=== PATIENT | male | born 1955 | race Caucasian/White ===

== ENCOUNTER 2022-06-04 15:26 | Outpatient (CLI) | payer MEDICARE, BC, SELFPAY ==
[2022-06-04 17:13] LABS: Chloride* 98 mmol/L (96-114)
[2022-06-04 17:14] LABS: Potassium* 4.1 mmol/L (3.6-5.1); Sodium* 136 mmol/L (135-149)
[2022-06-04 17:16] LABS: Aspartate Amino Transferase* 32 U/L (12-35); Bilirubin Total* 0.7 mg/dL (0.1-1.5); Blood Urea Nitrogen* 15 mg/dL (7-30); Carbon Dioxide* 28 mmol/L (20-32); Cholesterol* 227 mg/dL (90-199); Creatinine* 0.7 mg/dL (0.5-1.5); Estimated Glomerular Filt Rate 102 ml/min; Total Protein* 7.2 g/dL (6.0-8.3)
[2022-06-04 17:17] LABS: Alanine Aminotransferase* 37 U/L (4-50); Alkaline Phosphatase* 75 U/L (40-150); Calcium* 10.6 mg/dL (8.4-10.6); Glucose* 89 mg/dL (60-115); HDL Cholesterol* 38 mg/dL (>=40)
[2022-06-04 17:36] LABS: LDL Cholesterol Calculated 68 mg/dL (<100); Triglycerides* 604 mg/dL (40-149)
[2022-06-04 17:39] LABS: Creatinine Urine 99.1 mg/dL
[2022-06-04 17:45] LABS: Microalbumin Creatinine Ratio 10 mg/g (0-30); Microalbumin Urine 1 mg/dL
== END 2022-06-04 15:27 | disposition home or self-care (01) ==
PROVIDERS: PCP Family Medicine; Visit Provider Family Medicine
DX: Z00.00 Encounter for general adult medical examination without abnormal findings (principal); E78.5 Hyperlipidemia, unspecified; E11.9 Type 2 diabetes mellitus without complications; I10 Essential (primary) hypertension; R53.83 Other fatigue
CPT/HCPCS: 80053; 80061; 82043; 82570

== ENCOUNTER 2022-08-06 08:48 | Outpatient (CLI) | payer MEDICARE, BC, SELFPAY ==
--- OUTSIDE RECORDS SUMMARY | 2022-08-06 08:52 | XMS_ITS ---
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 067836753 nephropathy Problem Tinnitus H93.19 Active 91619595 Problem Lumbar foraminal M99.83 Active 183 14515 stenosis Problem Mixed dyslipidemia E78.2 Active 2 08659123 Problem Venous stasis I87.2 Active 032441 09 dermatitis of left lower extremity Problem Bilateral H90.3 Active 244460738 sensorineural hearing loss Problem Hypertension I10 Active 8877094 3 Problem Degenerative joint M19.90 Active 3 36676959 disease Problem DJD (degenerative M47.816 Active 48 287536 joint disease), lumbar Problem Family history of Z80.0 Active 31 4306569 colon cancer ALLERGIES Substance Reaction Event Type Date Status Metformin HCl diarrhea Drug Allergy December, Active Lipitor myalgias Drug Allergy December, Active Cortisone hives Drug Allergy December, Active Clindamycin HCl pruritus Drug Allergy December, Active ENCOUNTERS Encounter Location Date Diagnosis [address] Jul, [place] [address] [place] [address] Apr, [address] [place] [address] [place] [address] Mar, [address] [place] [address] [place] [address] Mar, Type 2 diabetes mellitus [address] [place], [place] [address] neurological com plication E11.49 [facility] [address] Feb, Type 2 diabetes mellitus [place] with other diabe tic [address] neurological com plication E11.49 [facility] [address] December, Callus of to e L84 and Type [facility] 100 2 diabetes melli tus with [place], [place] other diabetic [address] neurological com plication E11.[address] December, [place] [address] [place] [address] [facility] [place] Oct, [place] [address] [facility] [address] Aug, Physical exa m, annual [facility] [address] Z00.00 ; Hyperte nsion I10 [place], [place] ; Type 2 diabete s mellitus [address] with other diabe tic neurological com plication E11.49 ; Mixed dyslipidemia E78 .2 ; Family history o f colon cancer Z80.0 and Prostate cancer screening Z12.5 [facility] [address] Aug, Hypert ension I10 and Type [place], [place] 2 diabetes melli tus with [address] other diabetic neurological com plication E11.49 [facility] [address] Jul, Hypert ension I10 and Type [place], [place] 2 diabetes [place]us [place] [address] other diabetic neurological com plication E11.[address] [place] [address] May, [address] [place] [address] [place] [address] Mar, Hypertension I1 0 [address] [place] [address] [facility] [address] Feb, Type 2 diabetes mellitus [place] with other diabe tic [address] neurological com plication E11.49 ; Impacte d cerumen of left ear H61. 22 and Failed hearing s creening R94.120 [place] [address] December, Hypertension I1 0 [address] [place] [address] [place] [address] December, [address] [place] [address], [place] [address] [place] [address] December, [address] [place] [address], [place] [address] [facility] [address] Nov, [place] [address] [facility] [address] Nov, [place] [address] [facility] [address] Nov, [place] [address] Nov, Type 2 diabetes mellitus [address] [place] [address] neurologica l complication E11.[address] [place] [address] Oct, [address] [place] [address], [place] [address] [place] [address] Oct, [address] [place] [address] [facility] [address] Oct, Type 2 diabe mati mellitus [place] [address] with other diabe tic [place], [place] neurological com plication [address] E11.49 [facility] [place] [address] Oct, Mixed dyslipidemia E78.2 [place] Reyn[place] and Type 2 diabe mati [address] mellitus with ot her diabetic neurolo gical complication E11 .[address] [place] [address] Oct, [address] [place] [address], [place] [address] [place] [address] Sep, Type 2 diabetes mellitus [address], [place] [address] neurological com plication E11.49 ; Hyperte nsion I10 and Mixed dyslip idemia E78.[address] [place] [address] Sep, [address], [place] [address] [place] [address] Sep, [place] [address] [place], [place] [address] [place] [address] Sep, Type 2 diabetes mellitus [address], [place] [address] neurological com plication E11.[address] [place] [address] Aug, Type 2 diabetes mellitus [address], [place] [address] neurological com plication E11.[address] [place] [address] Jul, [place] [address] [place], [place] [address] [facility] [address] Jul, Hypertension I10 ; Type 2 [place] [address] diabetes mellitu s with [place] other diabetic [address] neurological com plication E11.49 ; Diabeti c nephropathy E11. 21 ; Mixed dyslipidemia E78 .2 and Lip lesion K13.0 [facility] [address] Jul, Hypert ension I10 and Type [place] 2 diabetes melli unm [facility] with [address] other diabetic neurological com plication E11.[address] Feb, Hyperte nsion I10 ; Type [address] diabetes mellitu s with [place] [address] other diabe tic neurological com plication E11.49 ; Diabeti c nephropathy E11. 21 ; Mixed dyslipidemia E78 .2 and Skin lesion L98. 9 [facility] [address] Jan, Type 2 diabetes mellitus [place] with other diabe tic [address] neurological com plication E11.49 and Hyper tension I10 [place] [address] December, [place] [address] [place], [place] [address] [facility] [address] December, Type 2 diabetes mellitus [place] with other diabe tic [address] neurological com plication E11.49 and Hyper tension I10 [facility] [address] Nov, [place] [address] [facility] [address] Nov, [place] [address] [facility] [place] [address] Aug, Hypert ension I10 and Mixed [place] Reyn[place] dyslipidemia E78 .2 [address] [facility] [place] [address] Aug, Prosta te cancer screening [place] Reynoso Z12.5 ; Type 2 d iabetes [address] mellitus with ot her diabetic neurolo gical complication E11 .49 and Mixed dyslipidem ia E78.2 [facility] [address] [facility] [address] Aug, Physical exa m, annual [facility] [address] Z00.00 ; Hyperte nsion I10 [place] ; Type 2 diabete s mellitus [address] with other diabe tic neurological com plication E11.49 ; Mixed dyslipidemia E78 .2 and Prostate cancer screening Z12.5 [facility] [address] [place] [address] Avenue Jun, Hypertension I10 ; Type 2 [facility] 100 diabetes mellitu s with [place] other diabetic [address] neurological com plication E11.49 ; Mixed dyslipidemia E78 .2 and Acute URI J06.[address] Jun, Type 2 diabetes mellitus [place] [address] with other diabetic neurological com plication E11.49 [facility] [address] [place] [address] Avenue May, Hypertension I10 ; Type 2 [facility] 100 diabetes mellitu s [place] other diabetic [address] neurological com plication E11.49 ; Mixed dyslipidemia E78 .2 and Plantar fasciiti s of right foot M72.2 [facility] [address] [facility] [address], [address] [place] [address] [facility] [address] [place] [address] Avenue Mar, Hypertension I10 ; Type 2 [facility] 100 diabetes mellitu s [place] other diabetic [address] neurological com plication E11.49 ; Diabeti c nephropathy E11. 21 and Mixed dyslipidem ia E78.[address] Mar, Type 2 diabetes mellitus [place] with other diabe tic [address] neurological com plication E11.[address] Aug, [place] [address] [facility] [address] Jul, [facility] 100 [place] [address] [facility] [address] Jul, Hypertension I10 ; Type 2 [place] [address] diabetes mellitu s with [place] other diabetic [address] neurological com plication E11.49 ; Mixed dyslipidemia E78 .2 and Back pain M54.9 [facility] [address] Jun, Type 2 diabetes mellitus [place] with other diabe tic [address] neurological com plication E11.49 [place] [address] Jun, Type 2 diabetes mellitus [place] with other diabe tic [address] neurological com plication E11.49 [facility] [address] [facility] [address] Mar, Type 2 diabe mati mellitus [place] [address] with other diabe tic [place] neurological com plication [address] E11.[address] [place] [address] Mar, Type 2 diabetes mellitus [place] with other diabe tic [address] neurological com plication E11.49 and Mixed dyslipidemia E78 .2 [facility] [address] Mar, Type 2 diabetes mellitus [place] with other diabe tic [address] neurological com plication E11.49 [facility] [address] 30 Feb, 2018 Hypertension I10 ; Type 2 [place] [address] diabetes mellitu s with [place] other diabetic [address] neurological com plication E11.49 and Mixed dyslipidemia E78 .2 [place] [address] Feb, Hype rtension I10 [place] [address] Nov, [facility] 300 [place] [address] Nov, Venous stasis dermatitis [place] [address] [place] of left lower ex tremity [place] [address] I87.2 and T ype 2 diabetes mellitus with ot her diabetic neurolo gical complication E11 .[address] Oct, Body ma ss index (BMI) [facility] [address] [place] 33.0-33.9, adult Z68.33 ; [place] [address] Obese E66.9 ; Type 2 diabetes mellitu s with other diabetic neurological com plication E11.49 ; Diabeti c nephropathy E11. 21 ; Mixed dyslipidemia E78 .2 and Hypertension I10 [address] Jun, [facility] 300 [place] [address] Jun, [facility] 300 [place] [address] May, Type 2 diabetes mellitus [facility] 300 [place] with other diabe tic [place] [address] neurologica l complication E11.[address] May, [facility] 300 [place] [address] May, [facility] 300 [place] [address] May, [facility] 300 [place] [address] May, Hyperte nsion I10 ; Type 2 [facility] [address] diabetes mellitu s with [place] [address] other diabe tic neurological com plication E11.49 ; Diabeti c nephropathy E11. 21 and Mixed dyslipidem ia E78.2 [facility] [address] May, [place] [address] [facility] [address] Apr, Type 2 diabetes mellitus [place] with other diabe tic [address] neurological com plication E11.49 ; Encount er for aspirin therapy Z79.82 and Mixed dyslipidem ia E78.[address] December, Venous stasis dermatitis [place] [address] [place] of left lower ex tremity [place] [address] I87.2 ; Typ e 2 diabetes mellitus with ot her diabetic neurolo gical complication E11 .49 ; Diabetic nephrop athy E11.21 ; Mixed dyslipidemia E78 .2 and Hypertension I10 [facility] [address] December, Hype rtension I10 and Mixed [place] dyslipidemia E78 .2 [address] December, Hyperte nsion I10 and Mixed [facility] 300 [place] dyslipidemia E78 .2 [place] [address] Oct, Type 2 diabetes mellitus [facility] [address] [place] with other diabe tic [place] [address] neurologica l complication E11.49 ; Diabeti c nephropathy E11. 21 ; Mixed dyslipidemia E78 .2 ; Degenerative greg nt disease M19.90 ; Hyperte nsion I10 ; Bilateral sens orineural hearing loss H90 .3 ; Preoperative exa mination Z01.818 and Bact eria in urine N39.[address] Oct, [place] [address] Sep, [facility] 300 [place] [address] Sep, Right h ip pain M25.551 ; [facility] [address] [place] Type 2 diabetes mellitus [place] [address] with other diabetic neurological com plication E11.49 ; Diabeti c nephropathy E11. 21 ; Mixed dyslipidemia E78 .2 ; Hypertension I10 ; Hearing loss H91.90 and Family history of colon cancer Z80.[address] Jun, [place] [address] Mar, Pre-op evaluation Z01.818 [facility] [address] ; Type 2 diabete s mellitus [place] [address] with other diabetic neurological com plication E11.49 ; Hyperte nsion I10 and Lumbar disc disease with radiculopat hy M51.[address] Mar, Family history of [address] [place] malignant neopla sm of [place] [address] digestive o rgan Z80.0 [place] [address] Jan, [place] [address] [address] Jan, Lumb ar foraminal stenosis [place] M99.83 and Right hip pain [address] [address] December, BMI 32. 0-32.9,adult Z68.32 [facility] [address] [place] ; Hypertension I 10 ; Obese [place] [address] E66.9 ; Sac roiliac inflammation M46 .1 ; Right hip pain M25.551 ; Trochanteric bur sitis, right hip M70.61 ; Right lumbar radiculop athy M54.16 and Famil y history of colon cancer Z80.[address] Sep, [place] [address] [place] [address] Sep, Physical exa m, annual [facility] [address] Z00.00 ; Body ma ss index [place], [place] (BMI) 33.0-33.9, adult [address] Z68.33 ; Type 2 diabetes mellitus with ot her diabetic neurolo gical complication E11 .49 ; Obese E66.9 ; Di abetic nephropathy E11. 21 ; Mixed dyslipidemia E78 .2 ; Degenerative greg nt disease M19.90 ; History of wound infection Z98.89 ; Hypertension I10 ; DJD (degenerative nic int disease), lumbar M47.816 ; Hearing loss H91 .90 and Tinnitus H93.[address] Aug, [place] [address] May, Esse ntial (primary) [place] hypertension I10 [address] Nov, [place] [address] [place] [address] Nov, Dysl ipidemia 272.4 and [place] Diabetes mellitu s type 2, [address] diet-controlled 250.00 [place] [address] Nov, Dysl ipidemia 272.4 ; Type [place] 2 diabetes [place]elli [place]us [place] [address] neurological manifestations, controlled 250.60 and HTN (hypertension) 4 01.9 [facility] [address] Oct, Dysl ipidemia 272.4 [place] [address] [place] [address] Apr, [place] [address] [place] [address] Apr, [facility] health [place] maintenance V70. 0 ; Type 2 [address] diabetes mellitu s with neurological manifestations, controlled 250.60 ; HTN (hypertension) 4 01.9 ; Dyslipidemia 272 .4 ; Trochanteric bur sitis of right hip 726.5 and Hip flexor tendoniti s 727.09 [facility] [address] Oct, Toe infection 686.9 and [place] Diabetes mellitu s type 2, [address] diet-controlled 250.00 [place] [address] Nov, Pain in foot 729.5 ; [place] Hallux limitus 7 35.8 and [address] Tendonitis of fo ot 727.06 [facility] [address] Nov, Pain in both feet 729.5 [place] [address] [place] [address] Nov, [facility] health maintenance [place] Jo[place] V70.0 ; HTN (hyp ertension) [address] 401.9 ; Type 2 d iabetes mellitus with ne urological manifestations, controlled 250.60 ; Dyslipi demia 272.4 and Diabet ic nephropathy 250. 40 [facility] [address] Nov, HTN (hypertension) 401.9 ; [place] Jo[place] Dyslipidemia 272 .4 and [address] Type 2 diabetes mellitus with neurologica l manifestations, controlled 250.60 [facility] [address] Oct, Dysl ipidemia 272.4 ; HTN [place] Jo[place] (hypertension) 4 01.9 and [address] Type 2 diabetes mellitus with neurologica l manifestations, controlled 250.60 [place] [address] Sep, Cell ulitis 682.9 [place] [address] [facility] [address] Sep, Cell ulitis 682.9 [place] [address] Apr, [place] [address] [place] [address] Mar, [place] [address] [place] [address] Mar, Woun d infection 958.3 ; [place] Dyslipidemia 272 .4 ; HTN [address] (hypertension) 4 01.9 ; Type 2 diabetes mellitus with neurologica l manifestations, controlled 250.60 and Diabe tic nephropathy 250. [address] Mar, [place] [address] [facility] [address] Mar, [place] [address] [place] [address] Mar, [place] [address] [place] [address] Mar, HTN (hypertension) 401.9 ; [place] Dyslipidemia 272 .4 and [address] Type 2 diabetes mellitus with neurologica l manifestations, controlled 250.60 [place] [address] Mar, Hype rtension 401.9 ; DM [place] Jo[place] type 2 (diabetes mellitus, [address] type 2) 250.00 ; Dyslipidemia 272 .4 and DJD (degenerative nic int disease) 715.90 [facility] [address] Feb, HTN (hypertension) 401.9 ; [place] Dyslipidemia 272 .4 and [address] Type 2 diabetes mellitus with neurologica l manifestations, controlled 250.60 [facility] [address] Nov, [place] [address] [facility] [address] Sep, Type 2 diabetes mellitus [place] with neurologica l [address] manifestations, controlled 250.60 ; Actinic keratosis 702.0 ; HTN (hyp ertension) 401.9 and Dyslip idemia 272.4 IMMUNIZATIONS Vaccine Route Administration Date Status COVID, (Pfizer Booster Smith, 12+) IM Intramuscular Sep 02, 2021 Administered mRNA, LNP-S, PF t-s 30mcg/0.3ml Historic - COVID, (Pfizer Purple, Unknown Sep 17, 2020 Administered 12+) mRNA, LNP-S, PF, 30 mcg/0.3 ml Historic - COVID, (Pfizer Purple, Unknown Aug 27, 2020 Administered 12+) mRNA, LNP-S, PF, 30 mcg/0.3 ml Tdap (Boostrix), 10+yrs IM Intramuscular Sep 02, 2021 Adminis tered Tdap (Boostrix), 10+yrs Unknown Aug 18, 2010 Administ ered Pneumo-PPV23 ([id number]) 0 Sep 18, 2010 Admin istered SOCIAL HISTORY Never Assessed REASON FOR REFERRAL FUNCTIONAL STATUS PLAN OF CARE Activity Details Follow Up prn Reason: Future Test HbA1c/eAG-Glycosylated Hgb 2 2200302 Future Test Lipid Panel 20220302 Future Test Microalbumin/Creatinine Rati o 20220302 Future Test Colonoscopy 20210902 Future Test Colonoscopy 20160114 Future Test MRI : Lumbar Spine 20160114 Future Test Basic Metabolic Panel 419380 12 Future Test Lipid Panel 36184998 Future Test HbA1c/eAG-Glycosylated Hgb 2 4702327 Future Test Lipid Panel 64916229 Future Test ALT 20121122 Future Test HbA1c/eAG-Glycosylated Hgb 2 8915081 VITAL SIGNS Weight 231. lbs 2021-12-22 Weight 229. lbs 2021-09-02 Weight 232 lbs 2021-03-10 Weight 236 lbs 2020-07-30 Weight 234.2 lbs 2020-02-19 Weight 229 lbs 2019-08-21 Weight 229. lbs 2019-06-21 Weight 235. lbs 2019-05-16 Weight 241 lbs 2019-04-10 Weight 242 lbs 2018-07-25 Weight 244.4 lbs 2018-03-14 Weight 242 lbs 2017-11-29 Weight 240 lbs 2017-11-04 Weight 239 lbs 2017-05-24 Weight 235 lbs 2016-10-26 Weight 233.4 lbs 2016-10-06 Weight 235 lbs 2016-04-02 Weight 235 lb 4 oz lbs 2016-01-14 Weight 241.8 lbs 2015-09-17 Weight 234 lb 8 oz lbs 2014-04-17 Weight 231 lbs 2013-11-07 Weight 225 lbs 2012-12-08 Weight 225 lbs 2012-11-22 Weight 226 lbs 2012-10-11 Weight 224.4 lbs 2012-04-11 Height 69.25 in 2021-12-22 Height 69.25 in 2021-09-02 Height 71 in 2021-03-10 Height 71 in 2020-07-30 Height 71 in 2020-02-19 Height 71 in 2019-08-21 Height 71 in 2019-06-21 Height 71 in 2019-05-16 Height 71 in 2019-04-10 Height 71 in 2018-07-25 Height 71 in 2018-03-14 Height 71 in 2017-11-29 Height 71 in 2017-11-04 Height 71 in 2017-05-24 Height 71 in 2017-01-13 Height 71 in 2016-10-26 Height 71 in 2016-10-06 Height 71 in 2016-04-02 Height 5 ft 11 in in 2016-01-14 Height 5 ft 11 in in 2015-09-17 Height 5 ft 11 in in 2014-04-17 Height 5 ft 11 in in 2013-11-07 Height 5 ft 11 in in 2012-12-08 Height 5 ft 11 in in 2012-11-22 Height 5 ft 11 in in 2012-10-11 Height 5 ft 11 in in 2012-04-11 Temperature oral:98.2 degrees Fahrenheit 2021-12-22 Temperature oral:98.1 degrees Fahrenheit 2021-09-02 Temperature oral:98.2 degrees Fahrenheit 2021-03-10 Temperature oral:97.8 degrees Fahrenheit 2020-07-30 Temperature oral:97.0 degrees Fahrenheit 2020-02-19 Temperature oral:98.3 degrees Fahrenheit 2019-06-21 Temperature oral:97.9 degrees Fahrenheit 2019-05-16 Temperature oral:98 degrees Fahrenheit 2019-04-10 Temperature oral:97.8 degrees Fahrenheit 2018-07-25 Temperature oral:98.0 degrees Fahrenheit 2018-03-14 Temperature oral:97.6 degrees Fahrenheit 2017-11-04 Temperature oral:98.2 degrees Fahrenheit 2017-05-24 Temperature 98.0 degrees Fahrenheit 2017-01-13 Temperature 97.7 degrees Fahrenheit 2016-10-26 Temperature oral:98.2 degrees Fahrenheit 2016-04-02 Temperature 98.4 degrees Fahrenheit 2016-01-14 Temperature oral:98.1 degrees Fahrenheit 2015-09-17 Temperature oral:98.1 degrees Fahrenheit 2013-11-07 Temperature oral:98.8 degrees Fahrenheit 2012-10-11 Temperature oral:98.3 degrees Fahrenheit 2012-04-11 Heart Rate 96 /min 2021-12-22 Heart Rate 92 /min 2021-09-02 Heart Rate 76 /min 2021-03-10 Heart Rate 72 /min 2020-07-30 Heart Rate 64 /min 2020-02-19 Heart Rate 82 /min 2019-08-21 Heart Rate 68 /min 2019-06-21 Heart Rate 64 /min 2019-05-16 Heart Rate 86 /min 2019-04-10 Heart Rate 84 /min 2018-07-25 Heart Rate 72 /min 2018-03-14 Heart Rate 76 /min 2017-11-29 Heart Rate 74 /min 2017-11-04 Heart Rate 68 /min 2017-05-24 Heart Rate 70 /min 2017-01-13 Heart Rate 78 /min 2016-10-26 Heart Rate 72 /min 2016-10-06 Heart Rate 84 /min 2016-04-02 Heart Rate 70 /min 2016-01-14 Heart Rate 66 /min 2015-09-17 Heart Rate 68 /min 2014-04-17 Heart Rate 78 /min 2013-11-07 Heart Rate 68 /min 2012-12-08 Heart Rate 70 /min 2012-11-22 Heart Rate 72 /min 2012-10-11 Heart Rate 62 /min 2012-04-11 Respiratory Rate 16 /min 2021-03-10 Respiratory Rate 20 /min 2019-08-21 Respiratory Rate 20 /min 2019-04-10 Respiratory Rate 18 /min 2017-11-29 Respiratory Rate 16 /min 2016-10-26 Respiratory Rate 16 /min 2016-04-02 Respiratory Rate 16 /min 2015-09-17 Respiratory Rate 18 /min 2014-04-17 Respiratory Rate 18 /min 2013-11-07 Respiratory Rate 16 /min 2012-12-08 Respiratory Rate 16 /min 2012-11-22 Respiratory Rate 16 /min 2012-10-11 Respiratory Rate 16 /min 2012-04-11 BMI 33.86 kg/m2 2021-12-22 BMI 33.57 kg/m2 2021-09-02 BMI 32.35 kg/m2 2021-03-10 BMI 32.91 kg/m2 2020-07-30 BMI 32.66 kg/m2 2020-02-19 BMI 31.94 kg/m2 2019-08-21 BMI 31.94 kg/m2 2019-06-21 BMI 32.77 kg/m2 2019-05-16 BMI 33.61 kg/m2 2019-04-10 BMI 33.75 kg/m2 2018-07-25 BMI 34.08 kg/m2 2018-03-14 BMI 33.75 kg/m2 2017-11-29 BMI 33.47 kg/m2 2017-11-04 BMI 33.33 kg/m2 2017-05-24 BMI 32.77 kg/m2 2016-10-26 BMI 32.55 kg/m2 2016-10-06 BMI 32.77 kg/m2 2016-04-02 BMI 32.81 kg/m2 2016-01-14 BMI 33.72 kg/m2 2015-09-17 BMI 32.70 kg/m2 2014-04-17 BMI 32.21 kg/m2 2013-11-07 BMI 31.38 kg/m2 2012-12-08 BMI 31.38 kg/m2 2012-11-22 BMI 31.52 kg/m2 2012-10-11 BMI 31.29 kg/m2 2012-04-11 Oximetry 92 % 2021-12-22 Oximetry 96 % 2021-09-02 Oximetry 97 % 2021-03-10 Blood pressure systolic 128 mm Hg 2021-12-22 Blood pressure diastolic 70 mm Hg 2021-12-22 MEDICATIONS Medication Instructions Dosage Frequency Start End Duration Statu s Date Date FreeStyle Test - 2x/day as directed Nov, Acti 2011 Pravastatin Take 1 Active Sodium 20 MG tablet (20 mg) by mouth once daily. Aspirin 81 MG Orally Once a 1 tablet 24h Act ciro day Fish Oil 1000 Orally Once a 1 capsule 24h Ac tive MG day Trulicity 1.5 Subcutaneous 1.5 mg Nov, Activ e MG/0.5ML once a week weekly 2020 Multiple Orally Once a 1 tablet 24h Active Vitamin - day glipiZIDE ER 10 Take 1 Active MG tablet (10 mg) by mouth twice a day. Valsartan-hydro Take 1 Active CHLOROthiazide tablet by 320-12.5 MG mouth once daily. Lancets - twice daily May, days Active as directed 2016 PROCEDURES Procedure Date Ordered Result Body Site Potassium Oct 06, 2016 Urine, microalbumin Oct 06, 2016 Venipuncture Oct 06, 2016 Lipid panel Oct 06, 2016 Creatinine - [place] Oct 06, 2016 Glycosylated hemoglobin (A1C) - [place] Oct 06, 2016 Assay of urine creatinine Sep 17, 2015 Venipuncture Apr 02, 2016 Basic metabolic panel - [place] Apr 02, 2016 Glycosylated hemoglobin (A1C) - [place] Apr 02, 2016 Lipid panel May 05, 2017 Creatinine - [place] January 06, 2017 Potassium January 06, 2017 Venipuncture May 05, 2017 Basic metabolic panel - [place] May 05, 2017 Urinalysis - [place] October 26, 2016 Urine culture - REF LAB October 26, 2016 Venipuncture January 06, 2017 Lipid panel January 06, 2017 Assay of urine creatinine Oct 06, 2016 COVID-19, mRNA, LNP-S, PF t-s 30mcg/0.3ml dose Sep 02, 2021 (Pfizer Ready to Use) COVID19 Vaccine Administration Booster Dose Pfizer Sep 02, 2021 READY TO USE ALT (SGPT) - [place] Apr 17, 2014 Lipid Panel - REF LAB Apr 17, 2014 Hgb A1c / eAG - REF LAB Apr 17, 2014 Urine, microalbumin Apr 17, 2014 Basic metabolic panel - [place] November 07, 2013 Hgb A1c / eAG - REF LAB November 07, 2013 Venipuncture Apr 17, 2014 Basic metabolic panel - [place] Apr 17, 2014 X-ray, toe(s), right, min 2 views November 07, 2013 Venipuncture November 07, 2013 ALT (SGPT) - [place] Sep 17, 2015 BUN - [place] Sep 17, 2015 Urine, microalbumin Sep 17, 2015 Lipid panel Sep 17, 2015 Creatinine - [place] Sep 17, 2015 Glycosylated hemoglobin (A1C) - [place] Sep 17, 2015 Magnesium Sep 17, 2015 Assay of urine creatinine Apr 17, 2014 Venipuncture Sep 17, 2015 Electrolyte panel - [place] Sep 17, 2015 Venipuncture November 20, 2014 Venipuncture March 10, 2021 Potassium November 20, 2014 Glycosylated hemoglobin (A1C) - [place] November 20, 2014 Lipid panel November 20, 2014 Creatinine - [place] Jul 23, 2020 Glycosylated hemoglobin (A1C) - [place] Aug 26, 2021 Potassium Jul 23, 2020 Glycosylated hemoglobin (A1C) - [place] Jul 23, 2020 Basic metabolic panel - [place] Aug 26, 2021 Urine, microalbumin Jul 23, 2020 Venipuncture Aug 26, 2021 Assay of urine creatinine Jul 23, 2020 Glycosylated hemoglobin (A1C) - [place] March 10, 2021 Venipuncture October 29, 2020 Venipuncture January 29, 2020 Lipid panel October 29, 2020 Basic metabolic panel - [place] January 29, 2020 Glycosylated hemoglobin (A1C) - [place] October 29, 2020 Glycosylated hemoglobin (A1C) - [place] January 29, 2020 Venipuncture Jul 23, 2020 Venipuncture Sep 06, 2019 Lipid panel Sep 06, 2019 Glycosylated hemoglobin (A1C) - [place] Sep 06, 2019 PSA screen for [place] - [place] Sep 06, 2019 Diabetes Mgmt Education, ea 30 min November 14, 2020 Colonoscopy past splenic flexure Mar 20, 2016 X-ray, foot, complete December 08, 2012 X-ray, hip, unilateral, min 2 views Oct 06, 2016 Tdap (Boostrix), 10+yrs Sep 02, 2021 Immunization admin, perc, ID, subq, IM, 1 vaccine Sep 02, 2021 Assay of urine creatinine November 04, 2017 Urine, microalbumin Mar 29, 2018 Assay of urine creatinine Mar 29, 2018 Venipuncture Mar 29, 2018 Venipuncture November 04, 2017 Basic metabolic panel - [place] November 04, 2017 Glycosylated hemoglobin (A1C) - [place] November 04, 2017 Urine, microalbumin November 04, 2017 Glycosylated hemoglobin (A1C) - [place] May 05, 2017 CBC - [place] May 05, 2017 EKG Apr 02, 2016 Ear lavage 2021-03-10 N/A Glycosylated hemoglobin (A1C) - [place] Apr 10, 2019 Urine, microalbumin Apr 10, 2019 Assay of urine creatinine Apr 10, 2019 Lipid panel Jul 06, 2018 Glycosylated hemoglobin (A1C) - [place] Jul 06, 2018 Venipuncture Apr 10, 2019 Basic metabolic panel - [place] Apr 10, 2019 Lipid panel Mar 29, 2018 Glycosylated hemoglobin (A1C) - [place] Mar 29, 2018 Venipuncture Jul 06, 2018 Venipuncture Sep 02, 2021 PSA screen for Medicare - [place] Sep 02, 2021 RESULTS Name Result Date Reference Range PSA-Screen 2021-09-02 Prostatic Specific Antigen 2.05 0.00- 4.00 Basic Metabolic Panel 2021-08-26 Sodium 136 135-145 Potassium 4.5 3.5-5.0 Chloride 100 98-107 Carbon Dioxide 30 22-30 Anion Gap 6.0 8.0-16.0 Urea Nitrogen 17 7-18 Creatinine 0.70 0.50-1.20 Glucose 130 65-99 Calcium 10.7 8.4-10.2 eGFR - if non Am 99 >60 eGFR - if Am 115 >60 HbA1c/eAG-Glycosylated Hgb 2021-08-26 HbA1c 7.40 <5.70 Estimated Average Glucose 166 82-123 HbA1c/eAG-Glycosylated Hgb 2021-03-10 HbA1c 7.40 <5.70 Estimated Average Glucose 166 82-123 HbA1c/eAG-Glycosylated Hgb 2020-10-29 HbA1c 8.20 <5.70 Estimated Average Glucose 189 82-123 Lipid Panel 2020-10-29 Cholesterol 203 <200 High Density Lipoprotein 38 40-60 Triglycerides 394 35-160 Cholesterol/HDL Ratio 5.3 2.5-5.7 Low Density Lipoprotein 86 <130 Surgical Pathology 2020-08-13 LAB AP ADDENDUM 1 LAB AP CASE REPORT LAB AP CLINICAL INFORMATION LAB AP DIAGNOSIS COMMENT LAB AP GROSS DESCRIPTION LAB AP MICROSCOPIC DESCRIPTION LAB AP SYNOPTIC CHECKLIST PATHOLOGY REPORT FINAL DIAGNOSIS NARRATIVE SURGICAL PATHOLOGY SURGICAL PATHOLOGY RESULTS RECEIVED Surgical Pathology Creatinine 2020-07-23 Creatinine 0.70 0.50-1.20 eGFR - if non Am 100 >60 eGFR - if Am 116 >60 Microalbumin/Creatinine Ratio 2020-07-23 Microalbumin, Urine 25.6 0.0-19.0 Creatinine,Urine 156.6 21.5-297.0 Microalbumin/Creat Ratio 16.3 0.0-29. 0 Potassium 2020-07-23 Potassium 4.6 3.5-5.0 HbA1c/eAG-Glycosylated Hgb 2020-07-23 HbA1c 8.90 <5.70 Estimated Average Glucose 209 82-123 Basic Metabolic Panel 2020-01-29 Sodium 133 135-145 Potassium 4.5 3.5-5.0 Chloride 100 98-107 Carbon Dioxide 24 22-30 Anion Gap 9.0 8.0-16.0 Urea Nitrogen 16 7-18 Creatinine 0.60 0.50-1.20 Glucose 216 65-99 Calcium 10.0 8.4-10.2 eGFR - if non Am 107 >60 eGFR - if Am 124 >60 HbA1c/eAG-Glycosylated Hgb 2020-01-29 HbA1c 8.20 <5.70 Estimated Average Glucose 189 82-123 PSA-Screen 2019-09-06 Prostatic Specific Antigen 1.57 0.00- 4.00 HbA1c/eAG-Glycosylated Hgb 2019-09-06 HbA1c 7.20 <5.70 Estimated Average Glucose 160 82-123 Lipid Panel 2019-09-06 Cholesterol 169 <200 High Density Lipoprotein 40 40-60 Triglycerides 253 35-160 Cholesterol/HDL Ratio 4.2 2.5-5.7 Low Density Lipoprotein 78 <130 Basic Metabolic Panel 2019-04-10 Sodium 136 135-145 Potassium 4.3 3.5-5.0 Chloride 101 98-107 Carbon Dioxide 28 22-30 Anion Gap 7.0 8.0-16.0 Urea Nitrogen 16 7-18 Creatinine 0.80 0.50-1.20 Glucose 207 65-99 Calcium 10.1 8.4-10.2 eGFR - if non Am 96 >60 eGFR - if Am 111 >60 Microalbumin/Creatinine Ratio 2019-04-10 Microalbumin, Urine 7.1 0.0-19.0 Creatinine,Urine 70.4 21.5-297.0 Microalbumin/Creat Ratio 10.1 0.0-29. 0 HbA1c/eAG-Glycosylated Hgb 2019-04-10 HbA1c 8.30 <5.70 Estimated Average Glucose 192 82-123 HbA1c/eAG-Glycosylated Hgb 2018-07-06 HbA1c 7.40 <5.70 Estimated Average Glucose 166 82-123 Lipid Panel 2018-07-06 Cholesterol 174 <200 High Density Lipoprotein 44 40-60 Triglycerides 246 35-160 Cholesterol/HDL Ratio 4.0 2.5-5.7 Low Density Lipoprotein 81 <130 Microalbumin/Creatinine Ratio 2018-03-29 Microalbumin, Urine 15.0 0.0-19.0 Creatinine,Urine 182.4 21.5-297.0 Microalbumin/Creat Ratio 8.2 0.0-29. 0 HbA1c/eAG-Glycosylated Hgb 2018-03-29 HbA1c 7.30 <5.70 Estimated Average Glucose 163 82-123 Lipid Panel 2018-03-29 Cholesterol 205 <200 High Density Lipoprotein 37 40-60 Triglycerides 424 35-160 Cholesterol/HDL Ratio 5.5 2.5-5.7 Basic Metabolic Panel 2017-11-04 Sodium 137 135-145 Potassium 4.1 3.5-5.0 Chloride 98 98-107 Carbon Dioxide 28 22-30 Anion Gap 11.0 8.0-16.0 Urea Nitrogen 15 7-18 Creatinine 0.80 0.50-1.20 Glucose 142 65-99 Calcium 10.3 8.4-10.2 eGFR - if non Am 97 >60 eGFR - if Am 112 >60 Microalbumin/Creatinine Ratio 2017-11-04 Microalbumin, Urine <6.0 0.0-19.0 Creatinine,Urine 65.9 21.5-297.0 Microalbumin/Creat Ratio <9.1 0.0-29. 0 HbA1c/eAG-Glycosylated Hgb 2017-11-04 HbA1c 7.00 4.50-5.90 Estimated Average Glucose 154 82-123 Basic Metabolic Panel 2017-05-05 Sodium 135 135-145 Potassium 4.5 3.5-5.0 Chloride 101 98-107 Carbon Dioxide 25 22-30 Anion Gap 9.0 8.0-16.0 Urea Nitrogen 11 7-18 Creatinine 0.70 0.50-1.20 Glucose 174 65-99 Calcium 9.7 8.4-10.2 eGFR - if non Am 102 >60 eGFR - if Am 119 >60 HbA1c/eAG-Glycosylated Hgb 2017-05-05 HbA1c 8.50 4.50-5.90 Estimated Average Glucose 197 82-123 CBC 2017-05-05 WBC 6.1 4.0-11.0 RBC 4.6 4.4-5.5 Hemoglobin 14.6 13.1-16.4 Hematocrit 44.4 37.9-47.7 MCH 31.5 27.8-32.1 MCHC 32.9 32.9-36.0 MCV 96 80-95 RDW 12.8 12.9-14.7 Platelet 312 151-360 Lipid Panel 2017-05-05 Cholesterol 185 <200 High Density Lipoprotein 37 40-60 Triglycerides 452 35-160 Cholesterol/HDL Ratio 5.0 2.5-5.7 Creatinine 2017-01-06 Creatinine 0.70 0.50-1.20 eGFR - if non Am 103 >60 eGFR - if Am 119 >60 Potassium 2017-01-06 Potassium 5.0 3.5-5.0 Lipid Panel 2017-01-06 Cholesterol 179 <200 High Density Lipoprotein 43 40-60 Triglycerides 292 35-160 Cholesterol/HDL Ratio 4.2 2.5-5.7 Low Density Lipoprotein 78 <130 X ray : C Arm, Hip 2016-11-10 X ray : Pelvis 2016-11-10 Urine Culture 2016-10-26 Urine Culture-BAP 0 colonies Urine Culture-MAC 0 colonies Urinalysis w/UC reflex 2016-10-26 Color Yellow Yellow Clarity Clear Clear U Glucose 100 mg/dL Negative U Bilirubin Negative Negative U Ketone Negative Negative Specific [place] 1.025 1.010-1.030 U pH 7.0 5.0-8.0 U Blood Negative Negative U Protein Negative Negative Urobilinogen 0.2 E.U./dL 0.2-1.0 U Nitrite Negative Negative U Leukocytes Negative Negative U WBC Negative 0-2 U RBC 0-2 0-2 U Bacteria Occasional Negative Squamous Epithelial Cells Occasional Negati ve Mucus Occasional Negative Creatinine 2016-10-06 Creatinine 0.70 0.50-1.20 eGFR - if non Am 103 >60 eGFR - if Am 119 >60 Microalbumin/Creatinine Ratio 2016-10-06 Microalbumin, Urine 19.9 0.0-19.0 Creatinine,Urine 154.4 21.5-297.0 Microalbumin/Creat Ratio 12.9 0.0-29. 0 Potassium 2016-10-06 Potassium 4.4 3.5-5.0 HbA1c/eAG-Glycosylated Hgb 2016-10-06 HbA1c 8.20 4.50-5.90 Estimated Average Glucose 189 82-123 Lipid Panel 2016-10-06 Cholesterol 198 <200 High Density Lipoprotein 41 40-60 Triglycerides 368 35-160 Cholesterol/HDL Ratio 4.8 2.5-5.7 Low Density Lipoprotein 83 <130 X ray : Hip, right, 2 views 2016-10-06 Basic Metabolic Panel 2016-04-02 Sodium 138 135-145 Potassium 4.3 3.5-5.0 Chloride 99 98-107 Carbon Dioxide 28 22-30 Anion Gap 11.0 8.0-16.0 Urea Nitrogen 15 7-18 Creatinine 0.70 0.50-1.20 Glucose 189 65-99 Calcium 10.2 8.4-10.2 eGFR - if non Am 103 >60 eGFR - if Am 120 >60 HbA1c/eAG-Glycosylated Hgb 2016-04-02 HbA1c 7.40 4.50-5.90 Estimated Average Glucose 166 82-123 Electrocardiogram (EKG) 2016-04-02 Colonoscopy 2016-03-20 MRI : Lumbar Spine 2016-01-15 ALT 2015-09-17 ALT 28 20-70 BUN 2015-09-17 Urea Nitrogen 22 7-18 Creatinine 2015-09-17 Creatinine 0.8 0.5-1.2 Glomerular Filtration Rate 99 >60 Microalbumin/Creatinine Ratio 2015-09-17 Microalbumin, Urine 13.3 0.0-19.0 Creatinine,Urine 128.2 21.5-297.0 Microalbumin/Creat Ratio 10.4 0.0-29. 0 HbA1c/eAG-Glycosylated Hgb 2015-09-17 HbA1c 7.00 4.50-5.90 Estimated Average Glucose 154 82-123 Magnesium 2015-09-17 Magnesium 2.1 1.7-2.5 Lipid Panel 2015-09-17 Cholesterol 205 <200 High Density Lipoprotein 42 40-60 Triglycerides 391 35-160 Cholesterol/HDL Ratio 4.9 2.5-5.7 Low Density Lipoprotein 85 <130 Electrolyte Panel 2015-09-17 Sodium 137 135-145 Potassium 4.3 3.5-5.0 Chloride 101 98-107 Anion Gap 8.0 8.0-16.0 Carbon Dioxide 28 22-30 Potassium 2014-11-20 Potassium 4.8 3.5-5.0 HbA1c/eAG-Glycosylated Hgb 2014-11-20 HbA1c 6.60 4.50-5.90 Estimated Average Glucose 143 82-123 Lipid Panel 2014-11-20 Cholesterol 215 <200 High Density Lipoprotein 41 40-60 Triglycerides 277 35-160 Cholesterol/HDL Ratio 5.2 2.5-5.7 Low Density Lipoprotein 119 <130 Basic Metabolic Panel 2014-04-17 Sodium 139 135-145 Potassium 4.3 3.5-5.0 Chloride 104 98-107 Carbon Dioxide 28 22-30 Anion Gap 7.0 8.0-16.0 Urea Nitrogen 14 7-18 Creatinine 0.8 0.5-1.2 Glucose 110 65-99 Calcium 10.0 8.4-10.2 Glomerular Filtration Rate 100 >60 ALT 2014-04-17 ALT 33 20-70 Microalbumin/Creatinine Ratio 2014-04-17 Microalbumin, Urine <6.0 0.0-19.0 Creatinine,Urine 80.3 21.5-297.0 Microalbumin/Creat Ratio <7.5 0.0-29. 0 HbA1c/eAG-Glycosylated Hgb 2014-04-17 HbA1c 6.40 4.50-5.90 Estimated Average Glucose 137 82-123 Lipid Panel 2014-04-17 Cholesterol 194 <200 High Density Lipoprotein 40 40-60 Triglycerides 354 35-160 Cholesterol/HDL Ratio 4.9 2.5-5.7 Low Density Lipoprotein 83 <130 Basic Metabolic Panel 2013-11-07 Sodium 139 135-145 Potassium 4.3 3.5-5.0 Chloride 102 98-107 Carbon Dioxide 29 22-30 Anion Gap 8.0 8.0-16.0 Urea Nitrogen 18 7-18 Creatinine 0.9 0.5-1.2 Glucose 105 65-99 Calcium 9.6 8.4-10.2 Glomerular Filtration Rate 87 >60 HbA1c/eAG-Glycosylated Hgb 2013-11-07 Glycosylated Hemoglobin 5.80 4.20-5.8 0 X ray : Toe(s), right, min 2 views 2013-11-07 X ray : Foot, right, 3 views Basic Metabolic Panel 2012-11-15 Sodium 140 135-145 Potassium 4.5 3.5-5.0 Chloride 102 98-107 Carbon Dioxide 29 22-30 Anion Gap 9.0 8.0-16.0 Urea Nitrogen 17 7-18 Creatinine 0.9 0.5-1.2 Glucose 95 65-99 Calcium 9.7 8.4-10.2 Glomerular Filtration Rate 87 >60 ALT 2012-11-15 ALT 33 20-70 HbA1c/eAG-Glycosylated Hgb 2012-11-15 Glycosylated Hemoglobin 5.50 4.20-5.8 0 Lipid Panel 2012-11-15 Cholesterol 207 <200 High Density Lipoprotein 46 40-60 Triglycerides 244 35-160 Cholesterol/HDL Ratio 4.5 2.5-5.7 Low Density Lipoprotein 112 <130 CULT-ANAEROBIC/AEROBIC 2012-04-11 RESULTS RECEIVED Yes Basic Metabolic Panel 2012-03-17 NA 140 135-145 K+ 4.3 3.5-5.0 CL 104 98-107 CO2 28 22-30 AGP 8.0 8.0-16.0 BUN 15 7-18 CREAT 0.9 0.5-1.2 GLU 106 65-99 CA 9.9 8.4-10.2 GFR 88 >60 ALT 2012-03-17 ALT 27 HbA1c/eAG-Glycosylated Hgb 2012-03-17 d%A1C 5.50 4.20-5.80 Lipid Panel 2012-03-17 CHOL 202 <200 HDL 43 40-60 TRIG 240 35-160 CHOL/HDL 4.7 2.5-5.7 LDL 111 <130 SPOT MICROALBUMIN URINE 2012-03-17 RESULTS RECEIVED Yes HbA1c/eAG-Glycosylated Hgb HbA1c HbA1c 5.50 4.2 - 5.8 %NGSP eAG Basic Metabolic Panel 2011-10-08 NA 140 135-145 K+ 4.5 3.5-5.0 CL 104 98-107 CO2 28 22-30 AGP 8.0 8.0-16.0 BUN 13 7-18 CREAT 0.8 0.5-1.2 GLU 75 65-99 CA 9.6 8.4-10.2 GFR 101 >60 Glucose Glucose 75 65 - 99 mg/dl Lipid Panel Cholesterol 174 0 - 200 mg/dl High Density Lipoprotein 43 40 - 60 mg/dl Triglycerides 223 35 - 160 mg/dl Cholesterol/HDL Ratio 4.0 2.5 - 5.7 Low Density Lipoprotein 86 0 - 130 ALT 2011-02-11 ALT 24 70 HbA1c/eAG-Glycosylated Hgb 2011-02-11 d%A1C 5.90 4.20-5.80 Lipid Panel 2011-02-11 CHOL 174 <200 HDL 43 40-60 TRIG 223 35-160 CHOL/HDL 4.0 2.5-5.7 LDL 86 <130 REASON FOR VISIT E refill Glipizide OK 07/24, refill meds -Nay[place] pt, refill trulicity, refill Trulicity, E-refill Trulicity, pain big toe right foot, SH, toe pain, need advice, PA Trulicity, physical, SH, blood check/orders in ecw bs, E Refill Meds , refill Trulicity , (P) Refill meds(3), hearing test, left ear concern, refill Meds , Re:RE:Refill Trulcity, Refill Trulcity, diabetes, diabetes-Trulicity, diabetes; PAfor Trulicity, diabetes, Re:RE:New Refill Request, Refill Tradjenta, returning your call *10/31, blood check/orders in ecw bs, New Refill Request, refill Meds , Re:RE:Alternate for Tradjenta, Alternate for Tradjenta, Refill Glimepiride, Dr. Adler, New Refill Request, follow up, discuss diabetes, bloo d check/order in ecw mv, diabetes, blood check/order in ecw mv, blood check/order in ecw bs, Refill meds, E Refill Glipizide - due for A1c, Refill Valsartan, Pravastatin, Glimepiride, refill meds, refill Valsartan-HCTZ and Pravastatin, blood check/order in eCW, physical, medication check, diabetes, E r efill Glimepiride , diabetes check, enter eRx, medication check, multiple, E refill Glipizide , E-Refill Test Strips, Blood Sugars., follow up blood work, blood check/orders in eCW, E-refill Glipizide , Future lab orders, blood check/orders in eCW, Refill Glipizide , medication check multiple, Refill V alsartan-HCTZ and Pravastatin , Valsartan / Pravastatin refill, swelling, lower left leg, follow up diabetes, Blood sugar readings , Blood sugar update, update, lancets, update , new rx for test strips*, follow up, labs, Refill Metformin , blood check/order in ecw, medication check multiple, blood check/order in ecw, Refill , follow up hospitalization, right hip, pre-operative R-hip replacement , Preop 10-26-16, start metformin, medication check, multiple, blood check/order in ecw, Refill Valsartan-HCTZ , pre-operative back , c/s FH colon ca, E Refill Pravastatin, Ortho referral, pain, right hip, initial hearing, physical, e refill request for Diovan, Future Lab Order, med list updated/fyi, future lipid & a1c lab order, blood check/orders in eCW, E-Refill Pravastatin, fyi, physical, infected toe , pain,toe, Pain in feet ok for 12/01*, physical,ears ringing, blood check order in ecw, Lab orders prior to physical ok 11/08, med change, cellulitis, refill diovan, Wound Culture Lab , diabetic check, also follow-up leg infection, Right Shoulder Pain, refill Diovan HCTZ*, Update Demographics - Personal Info, Update Demographics - Additional Info, blood check order in ecw, EMR Pre-load, Pre-appt Labs , Refill- Test Strips, diabetic check Insurance Providers [facility] Member Patient Patient Patient Patient Patient Subscriber Subscriber Subscriber Group Insurance Plan Plan Plan Plan ID Relationship Address Phone Name Date of ID Name Date of No Type Insurance Insurance Insurance Coverage to Subscriber Address Phone Name Dates [place] [phone] [place] self Raj [id number] [place] [id number] [employer] [phone] [employer] self Raj [id number] Admin [id number] Admin [address] [facility] [id number]
[2022-08-06 11:11] LABS: PSA Screen* 2.47 ng/mL (0.10-4.00)
== END 2022-08-06 08:49 | disposition home or self-care (01) ==
LOC: NFLDREF 08:50
PROVIDERS: PCP Family Medicine; Visit Provider Family Medicine
DX: Z12.5 Encounter for screening for malignant neoplasm of prostate (principal)
CPT/HCPCS: 84153

== ENCOUNTER 2022-08-13 07:04 | Outpatient (CLI) | payer MEDICARE, BC, SELFPAY ==
--- OUTSIDE RECORDS SUMMARY | 2022-08-13 07:07 | XMS_ITS ---
:1955 Author Organization [facility] Address [id number] [phone] Support Name Relationship Address Phone Raj Martinez Unavailable [address] [facility] [phone] [place] [address] Joann Martinez Unavailable [address] 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 Problem Tinnitus H93.19 Active 11892536 Problem Lumbar foraminal M99.83 Active 183 64414 stenosis Problem Mixed dyslipidemia E78.2 Active 2 61216742 Problem Venous stasis I87.2 Active 567193 09 dermatitis of left lower extremity Problem Bilateral H90.3 Active 697612696 sensorineural hearing loss Problem Hypertension I10 Active 2478686 3 Problem Degenerative joint M19.90 Active 3 08073092 disease Problem DJD (degenerative M47.816 Active 48 715846 joint disease), lumbar Problem Family history of Z80.0 Active 31 4753200 colon cancer ALLERGIES Substance Reaction Event Type Date Status Metformin HCl diarrhea Drug Allergy December, Active Lipitor myalgias Drug Allergy December, Active Cortisone hives Drug Allergy December, Active Clindamycin HCl pruritus Drug Allergy December, Active ENCOUNTERS Encounter Location Date Diagnosis [address] Jul, [place] [address] [place] [address] Apr, [address] [place] [address] [place] [address] Mar, [address] [place] [address] [place] [address] Mar, Type 2 diabetes mellitus [address] [place], [place] [address] neurological com plication E11.49 [facility] [address] Feb, Type 2 diabetes mellitus [place] with other diabe tic [address] neurological com plication E11.49 [facility] [address] December, Callus of to e L84 and Type [facility] 100 2 diabetes melli tus with [place], [place] other diabetic [address] neurological com plication E11.[address] December, [place] [address] [place] [address] [facility] [address] Oct, [place] [address] [facility] [address] Aug, Physical exa m, annual [facility] [address] Z00.00 ; Hyperte nsion I10 [place], [place] ; Type 2 diabete s mellitus [address] with other diabe tic neurological com plication E11.49 ; Mixed dyslipidemia E78 .2 ; Family history o f colon cancer Z80.0 and Prostate cancer screening Z12.5 [facility]3 [facility] [address] Aug, Hypert ension I10 and Type [place], [place] 2 diabetes melli tus with [address] other diabetic neurological com plication E11.49 [facility] [address] Jul, Hypert ension I10 and Type [place], [place] 2 [place] [address] other diabetic neurological com plication E11.[address] [place] [address] May, [address] [place] [address] [place] [address] Mar, Hypertension I1 0 [address] [place] [address] [facility] [address] Feb, Type 2 diabetes mellitus [place] with other diabe tic [address] neurological com plication E11.49 ; Impacte d cerumen of left ear H61. 22 and Failed hearing s creening R94.[address] [place] [address] December, Hypertension I1 0 [address] [place] [address] [place] [address] December, [address] [place] [address], [place] [address] [place] [address] December, [address] [place] [address], [place] [address] [facility] [address] Nov, [place] [address] [facility] [address] Nov, [place] [address] [facility] [address] Nov, [place] [address] Nov, Type 2 diabetes mellitus [address] [place] [address] neurologica l complication E11.[address] [place] [address] Oct, [address] [place] [address], [place] [address] [place] [address] Oct, [address] [place] [address] [facility] [address] Oct, Type 2 diabe mati mellitus [place] [address] with other diabe tic [place], [place] neurological com plication [address] E11.49 [facility] [address] Oct, Mixed dyslipidemia E78.2 [place] and Type 2 diabe mati [address] mellitus with ot her diabetic neurolo gical complication E11 .[address] [place] [address] Oct, [address] [place] [address], [place] [address] [place] [address] Sep, Type 2 diabetes mellitus [address], [place] [address] neurological com plication E11.49 ; Hyperte nsion I10 and Mixed dyslip idemia E78.2 [place] [address] Sep, [address], [place] [address] [place] [address] Sep, [place] [address] [place], [place] [address] [place] [address] Sep, Type 2 diabetes mellitus [address], [place] [address] neurological com plication E11.[address] [place] [address] Aug, Type 2 diabetes mellitus [address], [place] [address] neurological com plication E11.[address] [place] [address] Jul, [place] [address] [place], [place] [address] [facility] [address] Jul, Hypertension I10 ; Type 2 [place] [address] diabetes mellitu s with [place] other diabetic [address] neurological com plication E11.49 ; Diabeti c nephropathy E11. 21 ; Mixed dyslipidemia E78 .2 and Lip lesion K13.0 [facility] [address] Jul, Hypert ension I10 and Type [place] 2 diabetes melli [facility] with [address] other diabetic neurological com plication E11.[address] Feb, Hyperte nsion I10 ; Type [address] diabetes mellitu s with [place] [address] other diabe tic neurological com plication E11.49 ; Diabeti c nephropathy E11. 21 ; Mixed dyslipidemia E78 .2 and Skin lesion L98. 9 [facility] [address] Jan, Type 2 diabetes mellitus [place] with other diabe tic [address] neurological com plication E11.49 and Hyper tension I10 [place] [address] December, [place] [address] [place], [place] [address] [facility] [address] December, Type 2 diabetes mellitus [place] with other diabe tic [address] neurological com plication E11.49 and Hyper tension I10 [facility] [address] Nov, [place] [address] [facility] [address] Nov, [place] [address] [facility] [address] Aug, Hypert ension I10 and Mixed [place] dyslipidemia E78 .2 [address] [facility] [address] Aug, Prosta te cancer screening [place] Z12.5 ; Type 2 d iabetes [address] mellitus with ot her diabetic neurolo gical complication E11 .49 and Mixed dyslipidem ia E78.2 [facility] [address] Aug, Physical exa m, annual [facility] [address] Z00.00 ; Hyperte nsion I10 [place], [place] ; Type 2 diabete s mellitus [address] with other diabe tic neurological com plication E11.49 ; Mixed dyslipidemia E78 .2 and Prostate cancer screening Z12.5 [facility] [address] [place] [address] Avenue Jun, Hypertension I10 ; Type 2 [facility] 100 diabetes mellitu s with [place] other diabetic [address] neurological com plication E11.49 ; Mixed dyslipidemia E78 .2 and Acute URI J06.[address] Jun, Type 2 diabetes mellitus [place] [address] with other diabetic neurological com plication E11.[address] [facility] [address] [place] [address] Avenue May, Hypertension I10 ; Type 2 [facility] 100 diabetes mellitu s [place] other diabetic [address] neurological com plication E11.49 ; Mixed dyslipidemia E78 .2 and Plantar fasciiti s of right foot M72.2 [facility] [address] [facility] [address] [place] [address] [facility] [address] [place] [address] Avenue Mar, Hypertension I10 ; Type 2 [facility] 100 diabetes mellitu s [place] other diabetic [address] neurological com plication E11.49 ; Diabeti c nephropathy E11. 21 and Mixed dyslipidem ia E78.[address] Mar, Type 2 diabetes mellitus [place] with other diabe tic [address] neurological com plication E11.[address] Aug, [place] [address] [facility] [address] Jul, [facility] 100 [place] [address] [facility] [address] Jul, Hypertension I10 ; Type 2 [place] [address] diabetes mellitu s with [place] other diabetic [address] neurological com plication E11.49 ; Mixed dyslipidemia E78 .2 and Back pain M54.9 [facility] [address] Jun, Type 2 diabetes mellitus [place] with other diabe tic [address] neurological com plication E11.49 [place] [address] Jun, Type 2 diabetes mellitus [place] with other diabe tic [address] neurological com plication E11.[address] [facility] [address] Mar, Type 2 diabe mati mellitus [place] [address] with other diabe tic [place] neurological com plication [address] E11.49 [place] [address] Mar, Type 2 diabetes mellitus [place] with other diabe tic [address] neurological com plication E11.49 and Mixed dyslipidemia E78 .2 [facility] [address] Mar, Type 2 diabetes mellitus [place] with other diabe tic [address] neurological com plication E11.[address] [facility] [address] Feb, 2018 Hypertension I10 ; Type 2 [place] [address] diabetes mellitu s with [place] other diabetic [address] neurological com plication E11.49 and Mixed dyslipidemia E78 .2 [place] [address] Feb, Hype rtension I10 [place] [address] Nov, [facility] 300 [place] [address] Nov, Venous stasis dermatitis [place] [address] [place] of left lower ex tremity [place] [address] I87.2 and T ype 2 diabetes mellitus with ot her diabetic neurolo gical complication E11 .[address] Oct, Body ma ss index (BMI) [facility] 300 [place] 33.0-33.9, adult Z68.33 ; [place] [address] Obese E66.9 ; Type 2 diabetes mellitu s with other diabetic neurological com plication E11.49 ; Diabeti c nephropathy E11. 21 ; Mixed dyslipidemia E78 .2 and Hypertension I10 [address] Jun, [facility] 300 [place] [address] Jun, [facility] 300 [place] [address] May, Type 2 diabetes mellitus [facility] [address] [place] with other diabe tic [place] [address] neurologica l complication E11.[address] May, [facility] 300 [place] [address] May, [facility] 300 [place] [address] May, [facility] 300 [place] [address] May, Hyperte nsion I10 ; Type 2 [facility] [address] [place] diabetes mellitu s with [place] [address] other diabe tic neurological com plication E11.49 ; Diabeti c nephropathy E11. 21 and Mixed dyslipidem ia E78.2 [place] [facility] [address] May, [place] [address] [facility] [address] Apr, Type 2 diabetes mellitus [place] with other diabe tic [address] neurological com plication E11.49 ; Encount er for aspirin therapy Z79.82 and Mixed dyslipidem ia E78.[address] December, Venous stasis dermatitis [place] [address] [place] of left lower ex tremity [place] [address] I87.2 ; Typ e 2 diabetes mellitus with ot her diabetic neurolo gical complication E11 .49 ; Diabetic nephrop athy E11.21 ; Mixed dyslipidemia E78 .2 and Hypertension I10 [facility] [address] December, Hype rtension I10 and Mixed [place] dyslipidemia E78 .2 [address] December, Hyperte nsion I10 and Mixed [facility] 300 [place] dyslipidemia E78 .2 [place] [address] Oct, Type 2 diabetes mellitus [facility] 300 [place] with other diabe tic [place] [address] neurologica l complication E11.49 ; Diabeti c nephropathy E11. 21 ; Mixed dyslipidemia E78 .2 ; Degenerative greg nt disease M19.90 ; Hyperte nsion I10 ; Bilateral sens orineural hearing loss H90 .3 ; Preoperative exa mination Z01.818 and Bact eria in urine N39.[address] Oct, [place] [address] Sep, [facility] 300 [place] [address] Sep, Right h ip pain M25.551 ; [facility] 300 [place] Type 2 diabetes mellitus [place] [address] with other diabetic neurological com plication E11.49 ; Diabeti c nephropathy E11. 21 ; Mixed dyslipidemia E78 .2 ; Hypertension I10 ; Hearing loss H91.90 and Family history of colon cancer Z80.[address] Jun, [place] [address] Mar, Pre-op evaluation Z01.818 [facility] [address] ; Type 2 diabete s mellitus [place] [address] with other diabetic neurological com plication E11.49 ; Hyperte nsion I10 and Lumbar disc disease with radiculopat hy M51.[address] Mar, Family history of [address] [place] malignant neopla sm of [place] [address] digestive o rgan Z80.0 [place] [address] Jan, [place] [address] Jan, Lumb ar foraminal stenosis [place] M99.83 and Right hip pain [address] December, BMI 32. 0-32.9,adult Z68.32 [facility] 300 [place] ; Hypertension I 10 ; Obese [place] [address] E66.9 ; Sac roiliac inflammation M46 .1 ; Right hip pain M25.551 ; Trochanteric bur sitis, right hip M70.61 ; Right lumbar radiculop athy M54.16 and Famil y history of colon cancer Z80.[address] Sep, [place] [address] [place] [address] Sep, Physical exa m, annual [facility] [address] Z00.00 ; Body ma ss index [place], [place] (BMI) 33.0-33.9, adult [address] Z68.33 ; Type 2 diabetes mellitus with ot her diabetic neurolo gical complication E11 .49 ; Obese E66.9 ; Di abetic nephropathy E11. 21 ; Mixed dyslipidemia E78 .2 ; Degenerative greg nt disease M19.90 ; History of wound infection Z98.89 ; Hypertension I10 ; DJD (degenerative nic int disease), lumbar M47.816 ; Hearing loss H91 .90 and Tinnitus H93.[address] Aug, [place] [address] May, Esse ntial (primary) [place] hypertension I10 [address] Nov, [place] [address] [place] [address] Nov, Dysl ipidemia 272.4 and [place] Diabetes mellitu s type 2, [address] diet-controlled 250.00 [place] [address] Nov, Dysl ipidemia 272.4 ; Type [place] 2 diabetes melli [place]us with [address] neurological manifestations, controlled 250.60 and HTN (hypertension) 4 01.9 [facility] [address] Oct, Dysl ipidemia 272.4 [place] [address] [place] [address] Apr, [place] [address] [place] [address] Apr, [facility] health [place] maintenance V70. 0 ; Type 2 [address] diabetes mellitu s with neurological manifestations, controlled 250.60 ; HTN (hypertension) 4 01.9 ; Dyslipidemia 272 .4 ; Trochanteric bur sitis of right hip 726.5 and Hip flexor tendoniti s 727.09 [facility] [address] Oct, Toe infection 686.9 and [place] Diabetes mellitu s type 2, [address] diet-controlled 250.00 [place] [address] Nov, Pain in foot 729.5 ; [place] Hallux limitus 7 35.8 and [address] Tendonitis of fo ot 727.06 [facility] [address] Nov, Pain in both feet 729.5 [place] [address] [place] [address] Nov, [facility] health maintenance [place] V70.0 ; HTN (hyp ertension) [address] 401.9 ; Type 2 d iabetes mellitus with ne urological manifestations, controlled 250.60 ; Dyslipi demia 272.4 and Diabet ic nephropathy 250. 40 [facility] [address] Nov, HTN (hypertension) 401.9 ; [place] Dyslipidemia 272 .4 and [address] Type 2 diabetes mellitus with neurologica l manifestations, controlled 250.60 [facility] [address] Oct, Dysl ipidemia 272.4 ; HTN [place] (hypertension) 4 01.9 and [address] Type 2 diabetes mellitus with neurologica l manifestations, controlled 250.60 [place] [address] Sep, Cell ulitis 682.9 [place] [address] [facility] [address] Sep, Cell ulitis 682.9 [place] [address] Apr, [place] [address] [place] [address] Mar, [place] [address] [place] [address] Mar, Woun d infection 958.3 ; [place] Dyslipidemia 272 .4 ; HTN [address] (hypertension) 4 01.9 ; Type 2 diabetes mellitus with neurologica l manifestations, controlled 250.60 and Diabe tic nephropathy 250. [address] Mar, [place] [address] [facility] [address] Mar, [place] [address] [place] [address] Mar, [place] [address] [place] [address] Mar, HTN (hypertension) 401.9 ; [place] Dyslipidemia 272 .4 and [address] Type 2 diabetes mellitus with neurologica l manifestations, controlled 250.60 [place] [address] Mar, Hype rtension 401.9 ; DM [place] type 2 (diabetes mellitus, [address] type 2) 250.00 ; Dyslipidemia 272 .4 and DJD (degenerative nic int disease) 715.90 [facility] [address] Feb, HTN (hypertension) 401.9 ; [place] Dyslipidemia 272 .4 and [address] Type 2 diabetes mellitus with neurologica l manifestations, controlled 250.60 [facility] [address] Nov, [place] [address] [facility] [address] Sep, Type 2 diabetes mellitus [place] with neurologica l [address] manifestations, controlled 250.60 ; Actinic keratosis 702.0 ; HTN (hyp ertension) 401.9 and Dyslip idemia 272.4 IMMUNIZATIONS Vaccine Route Administration Date Status Historic - COVID, (Pfizer Purple, Unknown Aug 27, 2020 Administered 12+) mRNA, LNP-S, PF, 30 mcg/0.3 ml Historic - COVID, (Pfizer Purple, Unknown Sep 17, 2020 Administered 12+) mRNA, LNP-S, PF, 30 mcg/0.3 ml Pneumo-PPV23 ([id number]) 0 Sep 18, 2010 Admin istered Tdap (Boostrix), 10+yrs Unknown Aug 18, 2010 Administ ered Tdap (Boostrix), 10+yrs IM Intramuscular Sep 02, 2021 Adminis tered COVID, (Adocia Booster Smith, 12+) IM Intramuscular Sep 02, 2021 Administered mRNA, LNP-S, PF t-s 30mcg/0.3ml SOCIAL HISTORY Never Assessed REASON FOR REFERRAL FUNCTIONAL STATUS PLAN OF CARE Activity Details Follow Up prn Reason: Future Test HbA1c/eAG-Glycosylated Hgb 2 2200302 Future Test Lipid Panel 20220302 Future Test Microalbumin/Creatinine Rati o 20220302 Future Test Colonoscopy 20210902 Future Test Colonoscopy 20160114 Future Test MRI : Lumbar Spine 20160114 Future Test Basic Metabolic Panel 910436 12 Future Test Lipid Panel 40467656 Future Test HbA1c/eAG-Glycosylated Hgb 2 4695595 Future Test Lipid Panel 84980691 Future Test ALT 20121122 Future Test HbA1c/eAG-Glycosylated Hgb 2 7962220 VITAL SIGNS Weight 231. lbs 2021-12-22 Weight [...] PROCEDURES Procedure Date Ordered Result Body Site Venipuncture Apr 02, 2016 Basic metabolic panel - [place] Apr 02, 2016 Venipuncture November 20, 2014 Lipid panel November 20, 2014 Glycosylated hemoglobin (A1C) - [place] November 20, 2014 Potassium November 20, 2014 Lipid Panel - REF LAB Apr 17, 2014 Hgb A1c / eAG - REF LAB Apr 17, 2014 Urine, microalbumin Apr 17, 2014 Assay of urine creatinine Apr 17, 2014 Lipid panel May 05, 2017 Creatinine - [place] January 06, 2017 Potassium January 06, 2017 Venipuncture May 05, 2017 Basic metabolic panel - [place] May 05, 2017 Urinalysis - [place] October 26, 2016 Urine culture - REF LAB October 26, 2016 Venipuncture January 06, 2017 Lipid panel January 06, 2017 Glycosylated hemoglobin (A1C) - [place] Apr 02, 2016 COVID-19, mRNA, LNP-S, PF t-s 30mcg/0.3ml dose Sep 02, 2021 (Pfizer Ready to Use) COVID19 Vaccine Administration Booster Dose Pfizer Sep 02, 2021 READY TO USE Creatinine - [place] Sep 17, 2015 Lipid panel Sep 17, 2015 Electrolyte panel - [place] Sep 17, 2015 Venipuncture Sep 17, 2015 BUN - [place] Sep 17, 2015 ALT (SGPT) - [place] Sep 17, 2015 Magnesium Sep 17, 2015 Glycosylated hemoglobin (A1C) - [place] Sep 17, 2015 Assay of urine creatinine Sep 17, 2015 Urine, microalbumin Sep 17, 2015 Venipuncture Apr 17, 2014 Basic metabolic panel - NE Apr 17, 2014 ALT (SGPT) - [place] Apr 17, 2014 Venipuncture November 07, 2013 Basic metabolic panel - [place] November 07, 2013 Hgb A1c / eAG - REF LAB November 07, 2013 X-ray, toe(s), right, min 2 views November 07, 2013 Glycosylated hemoglobin (A1C) - [place] Mar 29, 2018 Lipid panel Mar 29, 2018 X-ray, hip, unilateral, min 2 views Oct 06, 2016 EKG Apr 02, 2016 Venipuncture October 29, 2020 Glycosylated hemoglobin (A1C) - NE October 29, 2020 Lipid panel October 29, 2020 Venipuncture March 10, 2021 Glycosylated hemoglobin (A1C) - [place] March 10, 2021 Venipuncture Aug 26, 2021 Glycosylated hemoglobin (A1C) - NE Jul 23, 2020 Basic metabolic panel - NE Aug 26, 2021 Potassium Jul 23, 2020 Glycosylated hemoglobin (A1C) - NE Aug 26, 2021 Urine, microalbumin Jul 23, 2020 Venipuncture Sep 02, 2021 Assay of urine creatinine Jul 23, 2020 Basic metabolic panel - [place] January 29, 2020 Glycosylated hemoglobin (A1C) - [place] January 29, 2020 Venipuncture Jul 23, 2020 Creatinine - [place] Jul 23, 2020 Diabetes Mgmt Education, ea 30 min November 14, 2020 X-ray, foot, complete December 08, 2012 Colonoscopy past splenic flexure Mar 20, 2016 Venipuncture Oct 06, 2016 Potassium Oct 06, 2016 Glycosylated hemoglobin (A1C) - [place] Oct 06, 2016 Creatinine - [place] Oct 06, 2016 Lipid panel Oct 06, 2016 Assay of urine creatinine Mar 29, 2018 Urine, microalbumin Mar 29, 2018 Assay of urine creatinine Oct 06, 2016 Urine, microalbumin Oct 06, 2016 Venipuncture Mar 29, 2018 Tdap (Boostrix), 10+yrs Sep 02, 2021 Immunization admin, perc, ID, subq, IM, 1 vaccine Sep 02, 2021 Assay of urine creatinine November 04, 2017 Venipuncture Jul 06, 2018 Lipid panel Jul 06, 2018 Glycosylated hemoglobin (A1C) - [place] Jul 06, 2018 Venipuncture November 04, 2017 Basic metabolic panel - [place] November 04, 2017 Glycosylated hemoglobin (A1C) - [place] November 04, 2017 Urine, microalbumin November 04, 2017 Glycosylated hemoglobin (A1C) - [place] May 05, 2017 CBC - NE May 05, 2017 PSA screen for [place] - [place] Sep 02, 2021 Ear lavage 2021-03-10 N/A Glycosylated hemoglobin (A1C) - [place] Sep 06, 2019 PSA screen for [place] - [place] Sep 06, 2019 Venipuncture January 29, 2020 Urine, microalbumin Apr 10, 2019 Assay of urine creatinine Apr 10, 2019 Venipuncture Sep 06, 2019 Lipid panel Sep 06, 2019 Venipuncture Apr 10, 2019 Basic metabolic panel - NE Apr 10, 2019 Glycosylated hemoglobin (A1C) - [place] Apr 10, 2019 RESULTS Name Result Date Reference Range PSA-Screen [...] Negative Negative U Ketone Negative Negative Specific [place] 1.025 1.010-1.030 U pH 7.0 5.0-8.0 U [...] Refill- Test Strips, diabetic check Insurance Providers [facility] Member Patient Patient Patient Patient Patient Subscriber Subscriber Subscriber Group Insurance Plan Plan Plan Plan ID Relationship Address Phone Name Date of ID Name Date of No Type Insurance Insurance Insurance Coverage to Subscriber Address Phone Name Dates PreferredO [phone] PreferredO self Raj [id number] Admin [id number] Admin [address] [facility] [id number] [place] [phone] [place] self Raj [id number] [facility] [address] [place] [id number]
--- NOTE | 2022-08-13 07:15 | CRLHL7_ITS ---
For Patients: As a result of the Cures Act, medical imaging exams and procedure reports are released immediately into your electronic medical record. You may view this report before your referring provider. If you have questions, please contact your health care provider. Examination: US abdominal aorta Indication: Abdominal aortic aneurysm screening. Technique: Reeder scale and color Doppler images of the aorta and common iliac arteries are obtained. Comparison: None Findings: Proximal aorta: 2.2 x 2.5 cm Mid aorta: 1.8 x 1.8 cm Distal aorta: 1.7 x 1.7 cm Right common iliac artery: 1.1 x 1.1 cm Left common iliac artery: 1.2 x 1.1 cm Impression: No abdominal aortic aneurysm. Dictated by Robert Yap MD @ 08/13/2022 9:14:27 AM (Electronically Signed)
== END 2022-08-13 07:05 | disposition home or self-care (01) ==
LOC: US 07:05
PROVIDERS: PCP Family Medicine; Visit Provider Family Medicine
DX: Z13.6 Encounter for screening for cardiovascular disorders (principal)
CPT/HCPCS: 76775

== ENCOUNTER 2022-09-10 08:46 | Outpatient (CLI) | payer MEDICARE, BC, SELFPAY ==
--- OUTSIDE RECORDS SUMMARY | 2022-09-10 08:49 | XMS_ITS ---
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 747861365 nephropathy Problem Tinnitus H93.19 Active 05300515 Problem Lumbar foraminal M99.83 Active 183 44368 stenosis Problem Mixed dyslipidemia E78.2 Active 2 69113467 Problem Venous stasis I87.2 Active 616955 09 dermatitis of left lower extremity Problem Bilateral H90.3 Active 248274096 sensorineural hearing loss Problem Hypertension I10 Active 6341362 3 Problem Degenerative joint M19.90 Active 3 86443713 disease Problem DJD (degenerative M47.816 Active 48 014619 joint disease), lumbar Problem Family history of Z80.0 Active 31 3747988 colon cancer ALLERGIES Substance Reaction Event Type Date Status Metformin HCl diarrhea Drug Allergy December, Active Lipitor myalgias Drug Allergy December, Active Cortisone hives Drug Allergy December, Active Clindamycin HCl pruritus Drug Allergy December, Active ENCOUNTERS Encounter Location Date Diagnosis [address] Jul, [place] [address] [place] [address] Apr, [address] [place] [address] [place] [address] Mar, [address] [place] [address] [place] [address] Mar, Type 2 diabetes mellitus [address] [place], [place] [address] neurological com plication E11.49 [facility] [address] Feb, Type 2 diabetes mellitus [place] with other diabe tic [address] [facility] com [facility]11.[facility] [address] December, Callus of to e L84 and Type [facility] 100 2 diabetes melli tus with [place], [place] other diabetic [address] neurological com plication E11.[address] December, [place] [address] [place] [address] [facility] [address] Oct, [place] [address] [facility] [address] Aug, Physical exa m, annual [facility] [address] Z00.00 ; Hyperte nsion I10 [place], [place] ; Type 2 diabete s mellitus [address] with other diabe tic neurological com plication E11.49 ; Mixed dyslipidemia E78 .2 ; Family history o f colon cancer Z80.0 and Prostate cancer screening Z12.5 [facility] [address] Aug, Hypert ension I10 and Type [place], [place] 2 diabetes melli tus with [address] other diabetic neurological com plication E11.49 [facility] [address] Jul, Hypert ension I10 and Type [place], [place] 2 diabetes [place]us [place] [address] other diabetic neurological com plication E11.[address] [place] [address] May, [address] [place] [address] [place] [address] Mar, Hypertension I1 0 [address] [place] [address] [facility] [address] Feb, Type 2 diabetes mellitus [place] with other diabe tic [address] neurological com plication E11.49 ; Impacte d cerumen of left ear H61. 22 and Failed hearing s creening R94.[address] [place] [address] December, Hypertension I1 0 [address] [place] [address] [place] [address] December, [address] [place] [address], [place] [address] [place] [address] December, [address] [place] [address], [place] [address] [facility] [address] Nov, [place] [address] [facility] [address] Nov, [place] [address] [facility] [address] Nov, [place] [address] Nov, Type 2 diabetes mellitus [address] [place] [address] neurologica l complication E11.[address] [place] [address] Oct, [address] [place] [address], [place] [address] [place] [address] Oct, [address] [place] [address] [facility] [address] Oct, Type 2 diabe mati mellitus [place] [address] with other diabe tic [place], [place] neurological com plication [address] E11.49 [facility] [address] Oct, Mixed dyslipidemia E78.2 [place] and Type 2 diabe mati [address] mellitus with ot her diabetic neurolo gical complication E11 .[address] [place] [address] Oct, [address] [place] [address], [place] [address] [place] [address] Sep, Type 2 diabetes mellitus [address], [place] [address] neurological com plication E11.49 ; Hyperte nsion I10 and Mixed dyslip idemia E78.[address] [place] [address] Sep, [address], [place] [address] [place] [address] Sep, [place] [address] [place], [place] [address] [place] [address] Sep, Type 2 diabetes mellitus [address], [place] [address] neurological com plication E11.[address] [place] [address] Aug, Type 2 diabetes mellitus [address], [place] [address] neurological com plication E11.[address] [place] [address] Jul, [place] [address] [place], [place] [address] [facility] [address] Jul, Hypertension I10 ; Type 2 [place] [address] diabetes mellitu s with [place] other diabetic [address] neurological com plication E11.49 ; Diabeti c nephropathy E11. 21 ; Mixed dyslipidemia E78 .2 and Lip lesion K13.0 [facility] [address] Jul, Hypert ension I10 and Type [place] [address] [facility] with [address] other diabetic neurological com plication E11.[address] Feb, Hyperte nsion I10 ; Type [address] diabetes mellitu s with [place] [address] other diabe tic neurological com plication E11.49 ; Diabeti c nephropathy E11. 21 ; Mixed dyslipidemia E78 .2 and Skin lesion L98. 9 [facility] [address] Jan, Type 2 diabetes mellitus [place] with other diabe tic [address] neurological com plication E11.49 and Hyper tension I[place] [address] December, [place] [address] [place], [place] [address] [facility] [address] December, Type 2 diabetes mellitus [place] with other diabe tic [address] neurological com plication E11.49 and Hyper tension I10 [facility] [address] Nov, [place] [address] [facility] [address] Nov, [place] [address] [facility] [address] Aug, Hypert ension I10 and Mixed [place] dyslipidemia E78 .2 [address] [facility] [address] Aug, Prosta te cancer screening [place] Z12.5 ; Type 2 d iabetes [address] mellitus with ot her diabetic neurolo gical complication E11 .49 and Mixed dyslipidem ia E78.2 [facility] [address] [facility] [address] Aug, Physical exa m, annual [facility] [address] Z00.00 ; Hyperte nsion I10 [place] ; Type 2 diabete s mellitus [address] with other diabe tic neurological com plication E11.49 ; Mixed dyslipidemia E78 .2 and Prostate cancer screening Z12.5 [facility] [address] [place] [address] Avenue Jun, Hypertension I10 ; Type 2 [facility] 100 diabetes mellitu s with [place] other diabetic [address] neurological com plication E11.49 ; Mixed dyslipidemia E78 .2 and Acute URI J06.[address] Jun, Type 2 diabetes mellitus [place] [address] with other diabetic neurological com plication E11.[address] [facility] [address] [place] [address] Avenue May, Hypertension I10 ; Type 2 [facility] 100 diabetes mellitu s [place] other diabetic [address] neurological com plication E11.49 ; Mixed dyslipidemia E78 .2 and Plantar fasciiti s of right foot M72.2 [facility] [address] [facility] [address] [place] [address] [facility] [address] [place] [address] Avenue Mar, Hypertension I10 ; Type 2 [facility] 100 diabetes mellitu s [place] other diabetic [address] neurological com plication E11.49 ; Diabeti c nephropathy E11. 21 and Mixed dyslipidem ia E78.[address] Mar, Type 2 diabetes mellitus [place] with other diabe tic [address] neurological com plication E11.[address] Aug, [place] [address] [facility] [address] Jul, [facility] 100 [place] [address] [facility] [address] Jul, Hypertension I10 ; Type 2 [place] [address] diabetes mellitu s with [place] other diabetic [address] neurological com plication E11.49 ; Mixed dyslipidemia E78 .2 and Back pain M54.9 [facility] [address] Jun, Type 2 diabetes mellitus [place] with other diabe tic [address] neurological com plication E11.49 [place] [address] Jun, Type 2 diabetes mellitus [place] with other diabe tic [address] neurological com plication E11.[address] [facility] [address] [facility] [address] Mar, Type 2 diabe mati mellitus [place] [address] with other diabe tic [place] neurological com plication [address] E11.49 [place] [address] Mar, Type 2 diabetes mellitus [place] with other diabe tic [address] neurological com plication E11.49 and Mixed dyslipidemia E78 .2 [facility] [address] Mar, Type 2 diabetes mellitus [place] with other diabe tic [address] neurological com plication E11.[address] [facility] [address] Feb, 2018 Hypertension I10 ; Type 2 [place] [address] diabetes mellitu s with [place] other diabetic [address] neurological com plication E11.49 and Mixed dyslipidemia E78 .2 [place] [address] Feb, Hype rtension I10 [place] [address] Nov, [facility] 300 [place] [address] Nov, Venous stasis dermatitis [place] [address] [place] of left lower ex tremity [place] [address] I87.2 and T ype 2 diabetes mellitus with ot her diabetic neurolo gical complication E11 .[address] Oct, Body ma ss index (BMI) [facility] 300 [place] 33.0-33.9, adult Z68.33 ; [place] [address] Obese E66.9 ; Type 2 diabetes mellitu s with other diabetic neurological com plication E11.49 ; Diabeti c nephropathy E11. 21 ; Mixed dyslipidemia E78 .2 and Hypertension I10 [address] Jun, [facility] 300 [place] [address] Jun, [facility] 300 [place] [address] May, Type 2 diabetes mellitus [facility] 300 [place] with other diabe tic [place] [address] neurologica l complication E11.[address] May, [facility] 300 [place] [address] May, [facility] 300 [place] [address] May, [facility] 300 [place] [address] May, Hyperte nsion I10 ; Type 2 [facility] [address] [place] diabetes mellitu s with [place] [address] other diabe tic neurological com plication E11.49 ; Diabeti c nephropathy E11. 21 and Mixed dyslipidem ia E78.2 [facility] [address] May, [place] [address] [facility] [address] Apr, Type 2 diabetes mellitus [place] with other diabe tic [address] neurological com plication E11.49 ; Encount er for aspirin therapy Z79.82 and Mixed dyslipidem ia E78.[address] December, Venous stasis dermatitis [place] [address] [place] of left lower ex tremity [place] [address] I87.2 ; Typ e 2 diabetes mellitus with ot her diabetic neurolo gical complication E11 .49 ; Diabetic nephrop athy E11.21 ; Mixed dyslipidemia E78 .2 and Hypertension I10 [facility] [address] December, Hype rtension I10 and Mixed [facility] [place] dyslipidemia E78 .2 [address] December, Hyperte nsion I10 and Mixed [facility] 300 [place] dyslipidemia E78 .2 [place] [address] Oct, Type 2 diabetes mellitus [facility] 300 [place] with other diabe tic [place] [address] neurologica l complication E11.49 ; Diabeti c nephropathy E11. 21 ; Mixed dyslipidemia E78 .2 ; Degenerative greg nt disease M19.90 ; Hyperte nsion I10 ; Bilateral sens orineural hearing loss H90 .3 ; Preoperative exa mination Z01.818 and Bact eria in urine N39.[address] Oct, [place] [address] Sep, [facility] 300 [place] [address] Sep, Right h ip pain M25.551 ; [facility] 300 [place] Type 2 diabetes mellitus [place] [address] with other diabetic neurological com plication E11.49 ; Diabeti c nephropathy E11. 21 ; Mixed dyslipidemia E78 .2 ; Hypertension I10 ; Hearing loss H91.90 and Family history of colon cancer Z80.[address] Jun, [place] [address] Mar, Pre-op evaluation Z01.818 [facility] [address] ; Type 2 diabete s mellitus [place] [address] with other diabetic neurological com plication E11.49 ; Hyperte nsion I10 and Lumbar disc disease with radiculopat hy M51.[address] Mar, Family history of [address] [place] malignant neopla sm of [place] [address] digestive o rgan Z80.0 [place] [address] Jan, [place] [address] [address] Jan, Lumb ar foraminal stenosis [place] M99.83 and Right hip pain [address] December, BMI 32. 0-32.9,adult Z68.32 [facility] [address] [place] ; Hypertension I 10 ; Obese [place] [address] E66.9 ; Sac roiliac inflammation M46 .1 ; Right hip pain M25.551 ; Trochanteric bur sitis, right hip M70.61 ; Right lumbar radiculop athy M54.16 and Famil y history of colon cancer Z80.[address] Sep, [place] [address] [place] [address] Sep, Physical exa m, annual [facility] [address] Z00.00 ; Body ma ss index [place], [place] (BMI) 33.0-33.9, adult [address] Z68.33 ; Type 2 diabetes mellitus with ot her diabetic neurolo gical complication E11 .49 ; Obese E66.9 ; Di abetic nephropathy E11. 21 ; Mixed dyslipidemia E78 .2 ; Degenerative greg nt disease M19.90 ; History of wound infection Z98.89 ; Hypertension I10 ; DJD (degenerative nic int disease), lumbar M47.816 ; Hearing loss H91 .90 and Tinnitus H93.[address] Aug, [place] [address] May, Esse ntial (primary) [place] Jo[place] hypertension I10 [address] Nov, [place] [address] [place] [address] Nov, Dysl ipidemia 272.4 and [place] Diabetes mellitu s type 2, [address] diet-controlled 250.00 [place] [address] Nov, Dysl ipidemia 272.4 ; Type [place] 2 diabetes [place]us [place] [address] neurological manifestations, controlled 250.60 and HTN (hypertension) 4 01.9 [facility] [address] Oct, Dysl ipidemia 272.4 [place] [address] [place] [address] Apr, [place] [address] [place] [address] Apr, [facility] health [place] maintenance V70. 0 ; Type 2 [address] diabetes mellitu s with neurological manifestations, controlled 250.60 ; HTN (hypertension) 4 01.9 ; Dyslipidemia 272 .4 ; Trochanteric bur sitis of right hip 726.5 and Hip flexor tendoniti s 727.09 [facility] [address] Oct, Toe infection 686.9 and [place] Diabetes mellitu s type 2, [address] diet-controlled 250.00 [place] [address] Nov, Pain in foot 729.5 ; [place] Hallux limitus 7 35.8 and [address] Tendonitis of fo ot 727.06 [facility] [address] Nov, Pain in both feet 729.5 [place] [address] [place] [address] Nov, [facility] health maintenance [place] V70.0 ; HTN (hyp ertension) [address] 401.9 ; Type 2 d iabetes mellitus with ne urological manifestations, controlled 250.60 ; Dyslipi demia 272.4 and Diabet ic nephropathy 250. 40 [facility] [address] Nov, HTN (hypertension) 401.9 ; [place] Dyslipidemia 272 .4 and [address] Type 2 diabetes mellitus with neurologica l manifestations, controlled 250.60 [facility] [address] Oct, Dysl ipidemia 272.4 ; HTN [place] (hypertension) 4 01.9 and [address] Type 2 diabetes mellitus with neurologica l manifestations, controlled 250.60 [place] [address] Sep, Cell ulitis 682.9 [place] [address] [facility] [address] Sep, Cell ulitis 682.9 [place] [address] Apr, [place] [address] [place] [address] Mar, [place] [address] [place] [address] Mar, Woun d infection 958.3 ; [place] Dyslipidemia 272 .4 ; [place] [address] (hypertension) 4 01.9 ; Type 2 diabetes mellitus with neurologica l manifestations, controlled 250.60 and Diabe tic nephropathy 250. [address] Mar, [place] [address] [facility] [address] Mar, [place] [address] [place] [address] Mar, [place] [address] [place] [address] Mar, HTN (hypertension) 401.9 ; [place] Dyslipidemia 272 .4 and [address] Type 2 diabetes mellitus with neurologica l manifestations, controlled 250.60 [place] [address] Mar, Hype rtension 401.9 ; DM [place] Joiner type 2 (diabetes mellitus, [address] type 2) 250.00 ; Dyslipidemia 272 .4 and DJD (degenerative nic int disease) 715.90 [facility] [address] Feb, HTN (hypertension) 401.9 ; [place] Dyslipidemia 272 .4 and [address] Type 2 diabetes mellitus with neurologica l manifestations, controlled 250.60 [facility] [address] Nov, [place] [address] [facility] [address] Sep, Type 2 diabetes mellitus [place] with neurologica l [address] manifestations, controlled 250.60 ; Actinic keratosis 702.0 [...] Unknown Aug 18, 2010 Administ ered Pneumo-[id number] ([id number]) 0 Sep 18, 2010 Admin istered SOCIAL HISTORY Never Assessed REASON FOR REFERRAL FUNCTIONAL STATUS PLAN OF CARE Activity Details Follow Up prn Reason: Future Test HbA1c/eAG-Glycosylated Hgb 2 2200302 Future Test Lipid Panel 20220302 Future Test Microalbumin/Creatinine Rati o 20220302 Future Test Colonoscopy 20160114 Future Test MRI : Lumbar Spine 20160114 Future Test Basic Metabolic Panel 554970 12 Future Test Lipid Panel 31032429 Future Test HbA1c/eAG-Glycosylated Hgb 2 0716206 Future Test Lipid Panel 59211778 Future Test ALT 94235175 Future Test HbA1c/eAG-Glycosylated Hgb 2 0237465 VITAL SIGNS Weight 231. lbs 2021-12-22 Weight [...] Test - 2x/day as directed Nov, Acti - 2011 Pravastatin Take 1 Active Sodium 20 [...] PROCEDURES Procedure Date Ordered Result Body Site ALT (SGPT) - [place] Apr 17, 2014 Lipid Panel - REF LAB Apr 17, 2014 Venipuncture November 07, 2013 X-ray, toe(s), right, min 2 views November 07, 2013 Venipuncture Apr 17, 2014 Basic metabolic panel - [place] Apr 17, 2014 Urine culture - REF LAB October 26, 2016 Urinalysis - [place] October 26, 2016 Hgb A1c / eAG - REF LAB November 07, 2013 Basic metabolic panel - [place] November 07, 2013 Lipid panel Sep 17, 2015 Glycosylated hemoglobin (A1C) - [place] November 20, 2014 Potassium November 20, 2014 Venipuncture Sep 17, 2015 Electrolyte panel - [place] Sep 17, 2015 Urine, microalbumin Apr 17, 2014 Assay of urine creatinine Apr 17, 2014 Venipuncture November 20, 2014 Lipid panel November 20, 2014 Hgb A1c / eAG - REF LAB Apr 17, 2014 COVID-19, mRNA, LNP-S, PF t-s 30mcg/0.3ml dose Sep 02, 2021 (Pfizer Ready to Use) COVID19 Vaccine Administration Booster Dose Pfizer Sep 02, 2021 READY TO USE Potassium Jul 23, 2020 Glycosylated hemoglobin (A1C) - [place] Jul 23, 2020 Creatinine - [place] Jul 23, 2020 Venipuncture Jul 23, 2020 Glycosylated hemoglobin (A1C) - [place] March 10, 2021 Venipuncture March 10, 2021 Assay of urine creatinine Jul 23, 2020 Urine, microalbumin Jul 23, 2020 PSA screen for Medicare - [place] Sep 02, 2021 Venipuncture Sep 02, 2021 Lipid panel May 05, 2017 Basic metabolic panel - [place] May 05, 2017 Venipuncture May 05, 2017 Basic metabolic panel - [place] Apr 10, 2019 Venipuncture Apr 10, 2019 CBC - [place] May 05, 2017 Glycosylated hemoglobin (A1C) - [place] May 05, 2017 Assay of urine creatinine Apr 10, 2019 Urine, microalbumin Apr 10, 2019 Glycosylated hemoglobin (A1C) - [place] Apr 10, 2019 Venipuncture Aug 26, 2021 Glycosylated hemoglobin (A1C) [place] October 29, 2020 Lipid panel October 29, 2020 Venipuncture October 29, 2020 Glycosylated hemoglobin (A1C) - [place] Jul 06, 2018 Lipid panel Jul 06, 2018 Venipuncture Jul 06, 2018 Venipuncture Mar 29, 2018 Glycosylated hemoglobin (A1C) - [place] Mar 29, 2018 Lipid panel Mar 29, 2018 Colonoscopy past splenic flexure Mar 20, 2016 Venipuncture Sep 06, 2019 X-ray, hip, unilateral, min 2 views Oct 06, 2016 Lipid panel Sep 06, 2019 Glycosylated hemoglobin (A1C) - [place] Sep 06, 2019 Urine, microalbumin November 04, 2017 PSA screen for Medicare - [place] Sep 06, 2019 Assay of urine creatinine November 04, 2017 Venipuncture January 29, 2020 Urine, microalbumin Mar 29, 2018 Basic metabolic panel - [place] January 29, 2020 Assay of urine creatinine Mar 29, 2018 Potassium January 06, 2017 Venipuncture November 04, 2017 Basic metabolic panel - [place] November 04, 2017 Glycosylated hemoglobin (A1C) - [place] November 04, 2017 Diabetes Mgmt Education, ea 30 min November 14, 2020 X-ray, foot, complete December 08, 2012 EKG Apr 02, 2016 Tdap (Boostrix), 10+yrs Sep 02, 2021 Immunization admin, perc, ID, subq, IM, 1 vaccine Sep 02, 2021 Assay of urine creatinine Sep 17, 2015 Venipuncture Apr 02, 2016 Basic metabolic panel - [place] Apr 02, 2016 Glycosylated hemoglobin (A1C) - [place] Apr 02, 2016 Magnesium Sep 17, 2015 ALT (SGPT) - [place] Sep 17, 2015 BUN - [place] Sep 17, 2015 Urine, microalbumin Sep 17, 2015 Creatinine - [place] Sep 17, 2015 Glycosylated hemoglobin (A1C) - [place] Sep 17, 2015 Glycosylated hemoglobin (A1C) - [place] January 29, 2020 Ear lavage 2021-03-10 N/A Venipuncture January 06, 2017 Lipid panel January 06, 2017 Creatinine - [place] January 06, 2017 Glycosylated hemoglobin (A1C) - [place] Oct 06, 2016 Potassium Oct 06, 2016 Urine, microalbumin Oct 06, 2016 Assay of urine creatinine Oct 06, 2016 Venipuncture Oct 06, 2016 Lipid panel Oct 06, 2016 Creatinine - [place] Oct 06, 2016 Glycosylated hemoglobin (A1C) - [place] Aug 26, 2021 Basic metabolic panel - [place] Aug 26, 2021 RESULTS Name Result Date Reference Range [...] Negative Negative U Ketone Negative Negative Specific [place] 1.025 1.010-1.030 U pH 7.0 5.0-8.0 U [...] GFR 88 >60 ALT 2012-03-17 ALT 27 -70 HbA1c/eAG-Glycosylated Hgb 2012-03-17 d%A1C 5.50 4.20-5.80 Lipid [...] 0 - 130 ALT 2011-02-11 ALT 24 -70 HbA1c/eAG-Glycosylated Hgb 2011-02-11 d%A1C 5.90 4.20-5.80 Lipid [...] Refill- Test Strips, diabetic check Insurance Providers [facility] Health Member Patient Patient Patient Patient Patient Subscriber Subscriber Subscriber Group Insurance Plan Plan Plan Plan ID Relationship Address Phone Name Date of ID Name Date of No Type Insurance Insurance Insurance Coverage to Subscriber Address Phone Name Dates [employer] [phone] [place] self Raj [id number] [place] [id number] [employer] [phone] Preferred[employer] self Raj [phone] [id number] ne Admin [id number] ne Admin [address] Services [facility] [id number]
== END 2022-09-10 08:47 | disposition home or self-care (01) ==
PROVIDERS: PCP Family Medicine; Visit Provider Surgery
DX: Z12.11 Encounter for screening for malignant neoplasm of colon (principal); K63.5 Polyp of colon; K64.8 Other hemorrhoids; K64.4 Residual hemorrhoidal skin tags; K57.30 Diverticulosis of large intestine without perforation or abscess without bleeding; Z80.0 Family history of malignant neoplasm of digestive organs
CPT/HCPCS: 45385; 88305; 99153; J1200; J2250; J2405; J3010

== ENCOUNTER 2022-09-11 11:30 | Outpatient (RCR) | payer MEDICARE, BC, SELFPAY ==
--- NOTE | 2022-07-16 12:05 | PT.OPEX ---
PT [facility] PT [facility] Outpatient Eval Start: 07/16/22 09:02 Freq: Status: Active Protocol: Document 07/16/22 10:59 TOVA (Rec: 07/16/22 12:02 TOVA [id number]) E-signed By Jair Viera PT Physical Therapy Outpatient Evaluation Insurance Information Insurance Name Medicare B Medical Diagnosis Chronic left hip pain Hip OA Treating Diagnosis Decreased left hip ROM Left gluteal weakness Left hip flexor weakness Referring MD Elias Subjective Subjective Pt. reports onset of left hip pain and dysfunction about 8 months ago. X-rays reveal moderate OA of left hip. He had a right DAVID 5 years ago due to progressive OA. This one feels similar to him but not as painful currently. He has trouble going up and down steps, walking on inclines, lifting, and twisting etc. He is retired but is active and walks daily. PMH includes type 2 diabetes, HTN, skin CA, and right hip OA with DAVID. Pain Comments 11/23 Date of Last Physician Visit 06/04/22 Current Work Status Retired Preferred Name Raj Objective Range of Motion Left hip: flexion 85 deg; IR 5 degrees; ER 10 degrees. Strength left gluteus medius mild weakness moderate left hip flexor weakness Assessment Assessment/Impression Objectively, pt. demonstrates; mild limp with gait on left; left knee genu varus with mild extension deficit; significant loss of left hip ROM with 85 degrees of flexion and 10 degrees of ER; and moderate left hip flexor weakness with mild gluteus medius weakness. He would benefit from skilled therapy working on ROM, mobility and strength program. Primary Functional Limitations steps, inclines, lifting, carrying Plan of Care Rehabilitation Potential Good Physical Therapy Goals 1. Pt. will be independent with HEP for self maintenance in 8 weeks. 2. Pt. will demonstrate improved mobility and core strength in 8 weeks. 3. Pt. will be able to walk up and down step easier with ability to lift left hip actively past 100 degrees in 8 weeks. Coordination/Communication With Referral Source Treatment Plan/Direct Interventions Joint Mobilization,Manual Therapy,Self-Care/Home Management,Therapeutic Activities,Therapeutic Exercises Frequency/Duration 3-6 visits over 8-12 weeks. Patient Will Be Discharged From Therapy Independent w/HEP, Independently Progressing Evaluation Billing Complexity Moderate Certification Information Initial Certification Date 07/16/22 Ending Certification Date 10/08/22 Provider Signature Shows Agreement With POC & Medical Necessity Physician Signature & Date Requested Please Sign/Date Here Physician Comment/Change : Physician NPI Number #
== END 2022-09-14 08:02 | disposition home or self-care (01) ==
PROVIDERS: PCP Family Medicine; Visit Provider Family Medicine
DX: M16.12 Unilateral primary osteoarthritis, left hip (principal); Z51.89 Encounter for other specified aftercare
CPT/HCPCS: 84153; 97110; 97140; 97162

== ENCOUNTER 2023-02-08 07:35 | Outpatient (CLI) | payer MEDICARE, BC, SELFPAY | END 2023-02-08 07:36 | disposition home or self-care (01) | LOC: NFLDREF 11:17 | PROVIDERS: PCP Family Medicine; Referring Provider Family Medicine; Visit Provider Family Medicine | DX: E78.5 Hyperlipidemia, unspecified (principal); E11.40 Type 2 diabetes mellitus with diabetic neuropathy, unspecified | CPT/HCPCS: 80061 ==

== ENCOUNTER 2023-02-11 07:04 | Outpatient (CLI) | payer MEDICARE, BC, SELFPAY ==
--- OUTSIDE RECORDS SUMMARY | 2023-02-11 07:07 | XMS_ITS | Patient Health Record ---
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49 confirmed [id number] Problem Diabetic nephropathy E11.21 confirmed [id number] Problem Tinnitus H93.19 confirmed [id number] Problem Lumbar foraminal stenosis M99.83 confirmed 22367411 Problem Mixed dyslipidemia E78.2 confirmed [id number] Problem Venous stasis dermatitis of left lower extremity I87.2 confirmed 52158266 Problem Bilateral sensorineural hearing loss H90.3 confirmed [id number] Problem Hypertension I10 confirmed [id number] 3 Problem Degenerative joint disease M19.90 confirmed 495623031 Problem DJD (degenerative joint disease), lumbar M47.816 confirmed [id number] Problem Family history of colon cancer Z80.0 confirmed [id number] ALLERGIES Allergen (clinical drug ingredient) Drug/Non Drug Allergy documented on EMR Reaction Allergy Type Onset Date Status metformin Metformin HCl([facility] Code:[address]-87) diarrhea Drug Allergy Active atorvastatin Lipitor([facility] Code:[address]-19) myalgias Drug Allergy Active Cortisone hives Drug Allergy Active clindamycin Clindamycin HCl([facility] Code:[address]-16) pruritus Drug Allergy Active ENCOUNTERS from 1955 to 2023-02-11 Encounter Location Date Provider Diagnosis [address] [address] Jul, [place] [address] [address] Apr, [place] [address] [address] Mar, [place] [address] [address] Mar, Lydia Adler Type 2 diabetes mellitus with other diabetic neurological complication E11.49 [facility] [address] [place] [address] Feb, Lydia Adler Type 2 diabetes mellitus with other diabetic neurological complication E11.49 [facility] [address] [place] [address] December, Juan Luis Dominguez Callus of toe L84 and Type 2 diabetes mellitus with other diabetic neurological complication E11.[address] [place] [address] December, Lydia Adler [address] [address] Oct, Lydia Adler [facility] [address] [place] [address] Aug, Lydia Adler Physical exam, annual Z00.00 ; Hypertension I10 ; Type 2 diabetes mellitus with other diabetic neurological complication E11.49 ; Mixed dyslipidemia E78.2 ; Family history of colon cancer Z80.0 and Prostate cancer screening Z12.5 [facility] [place] [address] [place] [address] Aug, Lydia Nayely Hypertension I10 and Type 2 diabetes mellitus with other diabetic neurological complication E11.[address] [facility] [place] [address] [place] [address] Jul, Lydia Nayely Hypertension I10 and Type 2 diabetes mellitus with other diabetic neurological complication E11.49 [place] [address] [place] [address] May, [place] [address] [place] [address] Mar, Lydia Nayely Hypertension I10 [facility] [place] [address] [place] [address] Feb, Priscilla Fenton Type 2 diabetes mellitus with other diabetic neurological complication E11.49 ; Impacted cerumen of left ear H61.22 and Failed hearing screening R94.120 [place] [address] [place] [address] December, Lydia Adler Hypertension I10 [place] [address] [place] [address] December, [place] [address] [place] [address] December, Lydia Adler [address] [place] [address] Nov, Lydia Adler [place] [address] [place] [address] Nov, Lydia Adler [address] [place] [address] Nov, Lydia Adler [address] [place] [address] Nov, Lydia Adler Type 2 diabetes mellitus with other diabetic neurological complication E11.49 [place] [address] [place] [address] Oct, [place] [address] [place] [address], [place] [address] 23 Oct, 2020 Lydia Adler [facility] [address] [address] 17 Oct, 2020 Lydia Kimorski Type 2 diabetes mellitus with other diabetic neurological complication E11.49 [facility] [place] [address] [place] [address] 16 Oct, 2020 Lydia Adler Mixed dyslipidemia E78.2 and Type 2 diabetes mellitus with other diabetic neurological complication E11.[address] [place] [address] [place] [address], [place] [address] 14 Oct, 2020 [place] [address] [place] [address] 28 Sep, 2020 Kamari Alexander Type 2 diabetes mellitus with other diabetic neurological complication E11.49 ; Hypertension I10 and Mixed dyslipidemia E78.2 [place] [address] [place] [address] 16 Sep, 2020 [place] [address] [place] [address], [place] [address] 13 Sep, 2020 [place] [address] [place] [address] 06 Sep, 2020 Lydia Nayely Type 2 diabetes mellitus with other diabetic neurological complication E11.49 [place] [address] [address] Aug, Lydiahaily Adler Type 2 diabetes mellitus with other diabetic neurological complication E11.[address] [place] [address] [place] [address] Jul, Lydia Canoki [facility] [address] [address] Jul, Lydia Adler Hypertension I10 ; Type 2 diabetes mellitus with other diabetic neurological complication E11.49 ; Diabetic nephropathy E11.21 ; Mixed dyslipidemia E78.2 and Lip lesion K13.0 [facility] [place] [address] [place] [address] 08 Jul, 2020 Lydia Adler Hypertension I10 and Type 2 diabetes mellitus with other diabetic neurological complication E11.49 [facility] [place] [address] [place] [address] Feb, Lydia Adler Hypertension I10 ; Type 2 diabetes mellitus with other diabetic neurological complication E11.49 ; Diabetic nephropathy E11.21 ; Mixed dyslipidemia E78.2 and Skin lesion L98.9 [facility] [place] [address] [place] [address] Jan, Lydia Adler Type 2 diabetes mellitus with other diabetic neurological complication E11.49 and Hypertension I10 [place] [address] [facility] [address] [place] [address] December, Lydia Adler [facility] [address] [place] [address] December, Lydia Adler Type 2 diabetes mellitus with other diabetic neurological complication E11.49 and Hypertension I10 [facility] [place] [address] [place] [address] Nov, Lydiahaily Adler [facility] [place] [address] [place] [address] Nov, Lydia Adler [facility] [place] [address] [place] [address] Aug, Lydia Adler Hypertension I10 and Mixed dyslipidemia E78.2 [facility] [place] [address] [place] [address] Aug, Lydia Adler Prostate cancer screening Z12.5 ; Type 2 diabetes mellitus with other diabetic neurological complication E11.49 and Mixed dyslipidemia E78.2 [facility] [address] [place] [address] Aug, Lydia Adler Physical exam, annual Z00.00 ; Hypertension I10 ; Type 2 diabetes mellitus with other diabetic neurological complication E11.49 ; Mixed dyslipidemia E78.2 and Prostate cancer screening Z12.5 [facility] [address] [place] [address] Jun, Lydia Adler Hypertension I10 ; Type 2 diabetes mellitus with other diabetic neurological complication E11.49 ; Mixed dyslipidemia E78.2 and Acute URI J06.[address] [address] Jun, Lydia Nayely Type 2 diabetes mellitus with other diabetic neurological complication E11.49 [facility] [address] [place] [address] May, Lydia Nayely Hypertension I10 ; Type 2 diabetes mellitus with other diabetic neurological complication E11.49 ; Mixed dyslipidemia E78.2 and Plantar fasciitis of right foot M72.2 [facility] [address] [facility] [place] [address] [place] [address] Mar, Lydia Adler [facility] [address] [place] [address] Mar, Lydia Adler Hypertension I10 ; Type 2 diabetes mellitus with other diabetic neurological complication E11.49 ; Diabetic nephropathy E11.21 and Mixed dyslipidemia E78.2 [place] [address] [place] [address] Mar, Lydia Nayely Type 2 diabetes mellitus with other diabetic neurological complication E11.49 [place] [address] [place] [address] Aug, Lydia Adler [address] [address] Jul, Lydia Adler [address] [address] Jul, Lydia Adler Hypertension I10 ; Type 2 diabetes mellitus with other diabetic neurological complication E11.49 ; Mixed dyslipidemia E78.2 and Back pain M54.[address] [facility] [address] [place] [address] Jun, Lydia Nayely Type 2 diabetes mellitus with other diabetic neurological complication E11.[address] [facility] [address] [place] [address] Jun, Lydia Adler Type 2 diabetes mellitus with other diabetic neurological complication E11.[address] [address] Mar, Lydia Nayely Type 2 diabetes mellitus with other diabetic neurological complication E11.[address] [facility] [address] [place] [address] Mar, Lydia Adler Type 2 diabetes mellitus with other diabetic neurological complication E11.49 and Mixed dyslipidemia E78.[address] [facility] [address] [place] [address] Mar, Lydia Adler Type 2 diabetes mellitus with other diabetic neurological complication E11.[address] [place] [address] Feb, Lydia Adler Hypertension I10 ; Type 2 diabetes mellitus with other diabetic neurological complication E11.49 and Mixed dyslipidemia E78.[address] [facility] [address] [place] [address] Feb, Modonato Louis Hypertension I10 [address] [place] [address] Nov, Chanda Johnson [address] [place] [address] Nov, Chanda Johnson Venous stasis dermatitis of left lower extremity I87.2 and Type 2 diabetes mellitus with other diabetic neurological complication E11.[address] [place] [address] Oct, Chanda Johnson Body mass index (BMI) 33.0-33.9, adult Z68.33 ; Obese E66.9 ; Type 2 diabetes mellitus with other diabetic neurological complication E11.49 ; Diabetic nephropathy E11.21 ; Mixed dyslipidemia E78.2 and Hypertension I10 [address] [place] [address] Jun, Chanda Johnson [address] [place] [address] Jun, Chanda Johnson [address] [place] [address] May, Chanda Johnson Type 2 diabetes mellitus with other diabetic neurological complication E11.[address] [place] [address] May, Chandazackary Johnson [address] [place] [address] May, Chandazackary Johnson [address] [place] [address] May, Chanda Johnson [address] [place] [address] May, Chanda Johnson Hypertension I10 ; Type 2 diabetes mellitus with other diabetic neurological complication E11.49 ; Diabetic nephropathy E11.21 and Mixed dyslipidemia E78.[address] [facility] [address] [place] [address] May, Chandazackary Johnson [facility] [address] [place] [address] Apr, Chanda Johnson Type 2 diabetes mellitus with other diabetic neurological complication E11.49 ; Encounter for aspirin therapy Z79.82 and Mixed dyslipidemia E78.[address] [place] [address] December, Chanda Johnson Venous stasis dermatitis of left lower extremity I87.2 ; Type 2 diabetes mellitus with other diabetic neurological complication E11.49 ; Diabetic nephropathy E11.21 ; Mixed dyslipidemia E78.2 and Hypertension I10 [facility] [address] [place] [address] December, Chanda Johnson Hypertension I10 and Mixed dyslipidemia E78.[address] [place] [address] December, Chanda Johnson Hypertension I10 and Mixed dyslipidemia E78.[address] [place] [address] Oct, Chanda Johnson Type 2 diabetes mellitus with other diabetic neurological complication E11.49 ; Diabetic nephropathy E11.21 ; Mixed dyslipidemia E78.2 ; Degenerative joint disease M19.90 ; Hypertension I10 ; Bilateral sensorineural hearing loss H90.3 ; Preoperative examination Z01.818 and Bacteria in urine N39.0 [place] [address] [place] [address] Oct, Chanda Johnson [address] [place] [address] Sep, Chanda Johnson [address] [place] [address] Sep, Chanda Johnson Right hip pain M25.551 ; Type 2 diabetes mellitus with other diabetic neurological complication E11.49 ; Diabetic nephropathy E11.21 ; Mixed dyslipidemia E78.2 ; Hypertension I10 ; Hearing loss H91.90 and Family history of colon cancer Z80.0 [place] [address] [place] [address] Jun, Chanda Johnson [address] [place] [address] Mar, Nate Vogel Pre-op evaluation Z01.818 ; Type 2 diabetes mellitus with other diabetic neurological complication E11.49 ; Hypertension I10 and Lumbar disc disease with radiculopathy M51.[address] [place] [address] Mar, Christoph Cohen Family history of malignant neoplasm of digestive organ Z80.0 [place] [address] [place] [address] Jan, Chand[place]ackary [place] [address] [place] [address] Jan, Chanda Johnson Lumbar foraminal stenosis M99.83 and Right hip pain M25.[address] [place] [address] December, Chanda Johnson BMI 32.0-32.9,adult Z68.32 ; Hypertension I10 ; Obese E66.9 ; Sacroiliac inflammation M46.1 ; Right hip pain M25.551 ; Trochanteric bursitis, right hip M70.61 ; Right lumbar radiculopathy M54.16 and Family history of colon cancer Z80.0 [place] [address] [place] [address] Sep, Juan Luis Alberto [facility] [address] [place] [address], [place] [address] Sep, Juan Luis Alberto Physical exam, annual Z00.00 ; Body mass index (BMI) 33.0-33.9, adult Z68.33 ; Type 2 diabetes mellitus with other diabetic neurological complication E11.49 ; Obese E66.9 ; Diabetic nephropathy E11.21 ; Mixed dyslipidemia E78.2 ; Degenerative joint disease M19.90 ; History of wound infection Z98.89 ; Hypertension I10 ; DJD (degenerative joint disease), lumbar M47.816 ; Hearing loss H91.90 and Tinnitus H93.19 [place] [address] [place] [address] Aug, Chanda Johnson [place] [address] [place] [address] May, Chanda Johnson Essential (primary) hypertension I10 [place] [address] [place] [address] Nov, Chanda Johnson [place] [address] [place] [address] Nov, Chanda Johnson Dyslipidemia 272.4 and Diabetes mellitus type 2, diet-controlled 250.[address] [facility] [address] [place] [address] Nov, Chanda Johnson Dyslipidemia 272.4 ; Type 2 diabetes mellitus with neurological manifestations, controlled 250.60 and HTN (hypertension) 401.9 [place] [address] [place] [address] Oct, Chanda Johnson Dyslipidemia 272.4 [place] [address] [place] [address] Apr, Chanda Johnson [facility] [address] [place] [address] Apr, Chanda Johnson Routine adult health maintenance V70.0 ; Type 2 diabetes mellitus with neurological manifestations, controlled 250.60 ; HTN (hypertension) 401.9 ; Dyslipidemia 272.4 ; Trochanteric bursitis of right hip 726.5 and Hip flexor tendonitis 727.[address] [facility] [address] [place] [address] Oct, Mita Babb Toe infection 686.9 and Diabetes mellitus type 2, diet-controlled 250.[address] [facility] [address] [place] [address] Nov, Patito [place] Plascencia Pain in foot 729.5 ; Hallux limitus 735.8 and Tendonitis of foot 727.[address] [facility] [address] [place] [address] Nov, Chanda Alex Pain in both feet 729.[address] [facility] [address] [place] [address] Nov, Chanda Alex Routine health maintenance V70.0 ; HTN (hypertension) 401.9 ; Type 2 diabetes mellitus with neurological manifestations, controlled 250.60 ; Dyslipidemia 272.4 and Diabetic nephropathy 250.[address] [facility] [address] [place] [address] Nov, Chanda Johnson HTN (hypertension) 401.9 ; Dyslipidemia 272.4 and Type 2 diabetes mellitus with neurological manifestations, controlled 250.[address] [facility] [address] [place] [address] Oct, Chandazackary Johnson Dyslipidemia 272.4 ; HTN (hypertension) 401.9 and Type 2 diabetes mellitus with neurological manifestations, controlled 250.[address] [facility] [address] [place] [address] Sep, Avis Louis Cellulitis 682.[address] [facility] [address] [place] [address] Sep, Avis Louis Cellulitis 682.[address] [address] Apr, Chanda Johnson [facility] [address] [place] [address] Mar, Chanda Johnson [facility] [address] [place] [address] Mar, Chanda Johnson Wound infection 958.3 ; Dyslipidemia 272.4 ; HTN (hypertension) 401.9 ; Type 2 diabetes mellitus with neurological manifestations, controlled 250.60 and Diabetic nephropathy 250.[address] [address] Mar, [facility] [address] [place] [address] Mar, [place] [address] [place] [address] Mar, [place] [address] [place] [address] Mar, Chanda Johnson HTN (hypertension) 401.9 ; Dyslipidemia 272.4 and Type 2 diabetes mellitus with neurological manifestations, controlled 250.60 [place] [address] [place] [address] Mar, Chanda Johnson Hypertension 401.9 ; DM type 2 (diabetes mellitus, type 2) 250.00 ; Dyslipidemia 272.4 and DJD (degenerative joint disease) 715.90 [place] [address] [place] [address] Feb, Chanda Johnson HTN (hypertension) 401.9 ; Dyslipidemia 272.4 and Type 2 diabetes mellitus with neurological manifestations, controlled 250.60 [place] [address] [place] [address] Nov, Chanda Johnson [facility] [address] [place] [address] Sep, Chanda Johnson Type 2 diabetes mellitus with neurological manifestations, controlled 250.60 ; Actinic keratosis 702.0 ; HTN (hypertension) 401.9 and Dyslipidemia 272.4 IMMUNIZATIONS Vaccine Route Administration Date Status COVID, (Pfizer Booster Smith, 12+) mRNA, LNP-S, PF t-s 30mcg/0.3ml IM Intramuscular Sep 02, 2021 Administ marily Historic - COVID, (Pfizer Pu rple, 12+) mRNA, LNP-S, PF, 30 mcg/0.3 ml Unknown Sep 17, 2020 Admi nistered Historic - COVID, (Pfizer Pu rple, 12+) mRNA, LNP-S, PF, 30 mcg/0.3 ml Unknown Aug 27, 2020 Admi nistered Tdap (Boostrix), 10+yrs IM Intramuscular Sep 02, 2021 Administered Tdap (Boostrix), 10+yrs Unknown Aug 18, 2010 Admi nistered Pneumo-PPV23 ([id number]) 0 Sep 18, 2010 A dministered SOCIAL HISTORY Sex Assigned At : Social History Observation Description Sex Assigned At Unknown REASON FOR REFERRAL from 1955 to 2023-02-11 Reason pain in feet only in am. better with movement Diagnosis 1 Pain in both feet (7 29.5) Referral Organization [facility] Referring Provider First Name Chanda Referring Provider Last Name Alex Referring Provider Specialty [facility] Referred Organization [facility] Referred Provider Patito Watts Referred Address [address] [place] [address],[place], [place],[address] Referred Provider Specialty Podiatry Referral Priority Routine General Notes Maria L Baca 2012 10:47:40 AM >patient scheduled for 12-08-12 at 8:40 am w/Dr. Reynoso in [place] Reason Eval and treat for r ight hip flexor tendonitis/strain. Diagnosis 1 Hip flexor tendoniti s (727.09) Referral Organization [facility] Referring Provider First Name Chanda Referring Provider Last Name Alex Referring Provider Specialty [facility] Referred Provider [facility] centralized sche, Referral Priority Routine General Notes Paulino Baron 09/2013 09:35:35 AM >Fax w/attachments Reason failed hearing scree n; needs eval. Diagnosis 1 Hearing loss (H91.90 ) Referral Organization [facility] Referring Provider First Name Juan Luis Referring Provider Last Name Alberto Referring Provider Specialty [facility] Referred Provider *[facility], Evaluation Referral Priority Routine General Notes Bijal Isaac 2015 09:46:00 AM >pt is gutierrez w/pricilla wed 2-10 at [facility] 1:00 pm sh Reason Right hip pain. Some bursitis and SI pain. Cannot tolerate steroids. See MRI lumbar spine. Eval and treat Diagnosis 1 Sacroiliac inflammat ion (M46.1) Diagnosis 2 Trochanteric bursiti s of right hip (726.5) Diagnosis 3 Right lumbar radicul opathy (M54.16) Referral Organization [facility] Referring Provider First Name Chanda Referring Provider Last Name Alex Referring Provider Specialty [facility] Referred Provider [facility] ics Referral Priority Routine General Notes Savannah Berman 01/16/20 16 01:35:37 PM >sent via p2p Reason Lumbar foraminal wang nosis with radiculopathy. Also right hip pain and loss of ROM. Consult and treat Diagnosis 1 Right hip pain (M25. 551) Diagnosis 2 Lumbar foraminal wang nosis (M99.83) Referral Organization [facility] Referring Provider First Name Chanda Referring Provider Last Name Alex Referring Provider Specialty [facility] Referred Provider [facility] Referral Priority Routine General Notes Savannah Berman 01/17/20 16 07:56:03 AM >sent via p2p Reason Right hip pain with abnormal xray. Consult and treat. Diagnosis 1 Right hip pain (M25. 551) Referral Organization [facility] Referring Provider First Name Chanda Referring Provider Last Name Alex Referring Provider Specialty [facility] Referred Provider [facility], Referral Priority Routine General Notes Savannah Berman 10/07/19 17 10:01:33 AM >sent via p2p Reason failed hearing Diagnosis 1 Failed hearing scree abilio (R94.120) Referral Organization [facility] Referring Provider First Name Priscilla Referring Provider Last Name [place]o Referring Provider Specialty [facility] Now Referred Organization [facility] Referred Provider Provider,Provider Referred Address [id number] [place],[id number] Referred Provider Specialty Audiologists Referral Priority Routine General Notes PADMINI Miranda Courtne y 03/10/2021 10:15:41 AM >[facility] audiology Clinical Notes Sonal Whitehead 02/14 08:33:47 AM >Appt 03/19/2021 [facility] CRY Reason failed hearing Diagnosis 1 Failed hearing scree abilio (R94.120) Referral Organization [facility] [place] Referring Provider First Name Priscilla Referring Provider Last Name Eliceo Referring Provider Specialty [facility] Referred Provider * [facility] Referral Priority Routine Reason 1 omonth history of R great toe distal callus/ hyperkeratotic skin lesion- Dr. Joseph or Dr. Castro to evaluate and treat/ remove as indicated Diagnosis 1 Callus of toe (L84) Referral Organization [facility] Karyn Referring Provider First Name Juan Luis Referring Provider Last Name Alberto Referring Provider Specialty [facility] [employer] Referred Provider [facility], Referred Provider Specialty Podiatry Referral Priority Routine General Notes Caitlyn Sánchez 08:59:36 AM >5/9 OV Caitlyn Sánchez 12/30/2021 08:18:10 AM >faxed w/ attachment VITAL SIGNS from 1955 to 2023-02-11 Weight 231. lbs December, Height 69.25 in December, Temperature oral:98.2 degrees Fahrenheit December, Heart Rate 96 /min December, Respiratory Rate 16 /min Feb, BMI 33.86 kg/m2 December, Oximetry 92 % December, Blood pressure systolic 128 mm Hg December, Blood pressure diastolic 70 mm Hg December, MEDICATIONS Medication SIG (Take, Route, Frequency, Duration) Notes Start Date End Date Status Valsartan-hydroCHLOR Othiazide 320-12.5 MG Take 1 tablet by mouth once daily. Active Aspirin 81 MG 1 tablet Orally Once a day Active Multiple Vitamin - 1 tablet Orally Once a day Active Lancets - twice daily as directed for 90 days May, Active Fish Oil 1000 MG 1 capsule Orally Once a day Active FreeStyle Test - as directed - 2x/day HAsn't bee n checking his blood sugars for 2 months Nov, Active Trulicity 1.5 MG/0.5ML 1.5 mg weekly Subcutaneous once a week Nov, Active Pravastatin Sodium 20 MG Take 1 tablet (20 mg) by mouth once daily. Active glipiZIDE ER 10 MG Take 1 tablet (10 mg) by mouth twice a day. Active PROCEDURES from 1955 to 2023-02-11 Procedure Date Ordered Date Performed Result Body Sit e BLOOD PRESSURE CHECK 2012-11-22 N/A BLOOD PRESSURE CHECK 2016-01-14 N/A BLOOD PRESSURE CHECK 2016-10-26 N/A Ear lavage 2021-03-10 N/A RESULTS from 1955 to 2023-02-11 Component Value Reference Range Notes PSA-Screen Reviewed date:09/03/2021 12:20:44 Interpretation: Performing Lab: Notes/Report: Prostatic Specific Antigen 2.05 ng/mL 0.00-4.00 ng/m L Basic Metabolic Panel Reviewed date:08/26/2021 16:14:51 Interpretation: Performing Lab:,Is the patient fasting? Yes Notes/Report: Anion Gap 6.0 mmol/L 8.0-16.0 mmol/L Calcium 10.7 mg/dL 8.4-10.2 mg/dL Carbon Dioxide 30 mmol/L 22-30 mmol/L Chloride 100 mmol/L 98-107 mmol/L Creatinine 0.70 mg/dL 0.50-1.20 mg/dL eGFR - if Am 115 mL/min/1.73 >60 mL/min/1.73 eGFR - if non Am 99 mL/min/1.73 >60 mL/min/1.7 3 Glucose 130 mg/dL 65-99 mg/dL Potassium 4.5 mmol/L 3.5-5.0 mmol/L Sodium 136 mmol/L 135-145 mmol/L Urea Nitrogen 17 mg/dL 7-18 mg/dL HbA1c/eAG-Glycosylated Hgb Reviewed date:08/26/2021 16:14:51 Interpretation: Performing Lab: Notes/Report: Estimated Average Glucose 166 mg/dL 82-123 mg/dL HbA1c 7.40 % <5.70 % HbA1c/eAG-Glycosylated Hgb Reviewed date:03/11/2021 14:39:59 Interpretation:Improved Performing Lab: Notes/Report: Estimated Average Glucose 166 mg/dL 82-123 mg/dL HbA1c 7.40 % <5.70 % HbA1c/eAG-Glycosylated Hgb Reviewed date:10/30/2020 13:07:04 Interpretation: Performing Lab: Notes/Report: Estimated Average Glucose 189 mg/dL 82-123 mg/dL HbA1c 8.20 % <5.70 % Lipid Panel Reviewed date:10/30/2020 13:07:04 Interpretation: Performing Lab:,Is the patient fasting? Yes Notes/Report: Cholesterol 203 mg/dL <200 mg/dL Cholesterol/HDL Ratio 5.3 2.5-5.7 High Density Lipoprotein 38 mg/dL 40-60 mg/dL Low Density Lipoprotein 86 mg/dL <130 mg/dL Triglycerides 394 mg/dL 35-160 mg/dL Surgical Pathology Reviewed date:09/06/2020 10:21:05 Interpretation: Performing Lab: Notes/Report: LAB AP ADDENDUM 1 LAB AP CASE REPORT LAB AP CLINICAL INFORMATION LAB AP DIAGNOSIS COMMENT LAB AP GROSS DESCRIPTION LAB AP MICROSCOPIC DESCRIPTION LAB AP SYNOPTIC CHECKLIST PATHOLOGY REPORT FINAL DIAGNOSIS NARRATIVE SURGICAL PATHOLOGY SURGICAL PATHOLOGY RESULTS RECEIVED Surgical Pathology Creatinine Reviewed date:07/24/2020 14:28:07 Interpretation:*07/24 Performing Lab: Notes/Report: Creatinine 0.70 mg/dL 0.50-1.20 mg/dL eGFR - if Am 116 mL/min/1.73 >60 mL/min/1.73 eGFR - if non Am 100 mL/min/1.73 >60 mL/min/1. 73 Microalbumin/Creatinine Rati o Reviewed date:07/24/2020 14:28:07 Interpretation:*07/24 Performing Lab: Notes/Report: Creatinine,Urine 156.6 mg/dL 21.5-297.0 mg/dL Microalbumin/Creat Ratio 16.3 mg/g 0.0-29.0 mg/g Microalbumin, Urine 25.6 ug/mL 0.0-19.0 ug/mL Potassium Reviewed date:07/24/2020 14:28:07 Interpretation:*07/24 Performing Lab: Notes/Report: Potassium 4.6 mmol/L 3.5-5.0 mmol/L HbA1c/eAG-Glycosylated Hgb Reviewed date:07/24/2020 14:28:07 Interpretation:*07/24 Performing Lab: Notes/Report: Estimated Average Glucose 209 mg/dL 82-123 mg/dL HbA1c 8.90 % <5.70 % Basic Metabolic Panel Reviewed date:01/30/2020 14:25:30 Interpretation: Performing Lab:,Is the patient fasting? No Notes/Report: Anion Gap 9.0 mmol/L 8.0-16.0 mmol/L Calcium 10.0 mg/dL 8.4-10.2 mg/dL Carbon Dioxide 24 mmol/L 22-30 mmol/L Chloride 100 mmol/L 98-107 mmol/L Creatinine 0.60 mg/dL 0.50-1.20 mg/dL eGFR - if Am 124 mL/min/1.73 >60 mL/min/1.73 eGFR - if non Am 107 mL/min/1.73 >60 mL/min/1. 73 Glucose 216 mg/dL 65-99 mg/dL Potassium 4.5 mmol/L 3.5-5.0 mmol/L Sodium 133 mmol/L 135-145 mmol/L Urea Nitrogen 16 mg/dL 7-18 mg/dL HbA1c/eAG-Glycosylated Hgb Reviewed date:01/30/2020 14:25:30 Interpretation: Performing Lab: Notes/Report: Estimated Average Glucose 189 mg/dL 82-123 mg/dL HbA1c 8.20 % <5.70 % PSA-Screen Reviewed date:09/12/2019 17:39:29 Interpretation: Performing Lab: Notes/Report: Prostatic Specific Antigen 1.57 ng/mL 0.00-4.00 ng/m L HbA1c/eAG-Glycosylated Hgb Reviewed date:09/12/2019 17:39:29 Interpretation: Performing Lab: Notes/Report: Estimated Average Glucose 160 mg/dL 82-123 mg/dL HbA1c 7.20 % <5.70 % Lipid Panel Reviewed date:09/12/2019 17:39:29 Interpretation: Performing Lab:,Is the patient fasting? Yes Notes/Report: Cholesterol 169 mg/dL <200 mg/dL Cholesterol/HDL Ratio 4.2 2.5-5.7 High Density Lipoprotein 40 mg/dL 40-60 mg/dL Low Density Lipoprotein 78 mg/dL <130 mg/dL Triglycerides 253 mg/dL 35-160 mg/dL Basic Metabolic Panel Reviewed date:04/11/2019 10:36:58 Interpretation: Performing Lab:,Is the patient fasting? No Notes/Report: Anion Gap 7.0 mmol/L 8.0-16.0 mmol/L Calcium 10.1 mg/dL 8.4-10.2 mg/dL Carbon Dioxide 28 mmol/L 22-30 mmol/L Chloride 101 mmol/L 98-107 mmol/L Creatinine 0.80 mg/dL 0.50-1.20 mg/dL eGFR - if Am 111 mL/min/1.73 >60 mL/min/1.73 eGFR - if non Am 96 mL/min/1.73 >60 mL/min/1.7 3 Glucose 207 mg/dL 65-99 mg/dL Potassium 4.3 mmol/L 3.5-5.0 mmol/L Sodium 136 mmol/L 135-145 mmol/L Urea Nitrogen 16 mg/dL 7-18 mg/dL Microalbumin/Creatinine Rati o Reviewed date:04/11/2019 10:36:58 Interpretation: Performing Lab: Notes/Report: Creatinine,Urine 70.4 mg/dL 21.5-297.0 mg/dL Microalbumin/Creat Ratio 10.1 mg/g 0.0-29.0 mg/g Microalbumin, Urine 7.1 ug/mL 0.0-19.0 ug/mL HbA1c/eAG-Glycosylated Hgb Reviewed date:04/11/2019 10:36:58 Interpretation: Performing Lab: Notes/Report: Estimated Average Glucose 192 mg/dL 82-123 mg/dL HbA1c 8.30 % <5.70 % HbA1c/eAG-Glycosylated Hgb Reviewed date:07/08/2018 09:35:12 Interpretation: Performing Lab: Notes/Report: Estimated Average Glucose 166 mg/dL 82-123 mg/dL HbA1c 7.40 % <5.70 % Lipid Panel Reviewed date:07/08/2018 09:35:12 Interpretation: Performing Lab:,Is the patient fasting? Yes Notes/Report: Cholesterol 174 mg/dL <200 mg/dL Cholesterol/HDL Ratio 4.0 2.5-5.7 High Density Lipoprotein 44 mg/dL 40-60 mg/dL Low Density Lipoprotein 81 mg/dL <130 mg/dL Triglycerides 246 mg/dL 35-160 mg/dL Microalbumin/Creatinine Rati o Reviewed date:03/30/2018 11:01:14 Interpretation: Performing Lab: Notes/Report: Creatinine,Urine 182.4 mg/dL 21.5-297.0 mg/dL Microalbumin/Creat Ratio 8.2 mg/g 0.0-29.0 mg/g Microalbumin, Urine 15.0 ug/mL 0.0-19.0 ug/mL HbA1c/eAG-Glycosylated Hgb Reviewed date:03/30/2018 11:01:14 Interpretation: Performing Lab: Notes/Report: Estimated Average Glucose 163 mg/dL 82-123 mg/dL HbA1c 7.30 % <5.70 % Lipid Panel Reviewed date:03/30/2018 11:01:14 Interpretation: Performing Lab:,Is the patient fasting? Yes Notes/Report: Cholesterol 205 mg/dL <200 mg/dL Cholesterol/HDL Ratio 5.5 2.5-5.7 High Density Lipoprotein 37 mg/dL 40-60 mg/dL Triglycerides 424 mg/dL 35-160 mg/dL Basic Metabolic Panel Reviewed date:11/10/2017 16:20:44 Interpretation: Performing Lab:,Is the patient fasting? No Notes/Report: Anion Gap 11.0 mmol/L 8.0-16.0 mmol/L Calcium 10.3 mg/dL 8.4-10.2 mg/dL Carbon Dioxide 28 mmol/L 22-30 mmol/L Chloride 98 mmol/L 98-107 mmol/L Creatinine 0.80 mg/dL 0.50-1.20 mg/dL eGFR - if Am 112 mL/min/1.73 >60 mL/min/1.73 eGFR - if non Am 97 mL/min/1.73 >60 mL/min/1.7 3 Glucose 142 mg/dL 65-99 mg/dL Potassium 4.1 mmol/L 3.5-5.0 mmol/L Sodium 137 mmol/L 135-145 mmol/L Urea Nitrogen 15 mg/dL 7-18 mg/dL Microalbumin/Creatinine Rati o Reviewed date:11/10/2017 16:20:43 Interpretation: Performing Lab: Notes/Report: Creatinine,Urine 65.9 mg/dL 21.5-297.0 mg/dL Microalbumin/Creat Ratio <9.1 mg/g 0.0-29.0 mg/g Microalbumin, Urine <6.0 ug/mL 0.0-19.0 ug/mL HbA1c/eAG-Glycosylated Hgb Reviewed date:11/10/2017 16:20:44 Interpretation: Performing Lab: Notes/Report: Estimated Average Glucose 154 mg/dL 82-123 mg/dL HbA1c 7.00 % 4.50-5.90 % Basic Metabolic Panel Reviewed date:05/14/2017 12:35:17 Interpretation: Performing Lab:,Is the patient fasting? Yes Notes/Report: Anion Gap 9.0 mmol/L 8.0-16.0 mmol/L Calcium 9.7 mg/dL 8.4-10.2 mg/dL Carbon Dioxide 25 mmol/L 22-30 mmol/L Chloride 101 mmol/L 98-107 mmol/L Creatinine 0.70 mg/dL 0.50-1.20 mg/dL eGFR - if Am 119 mL/min/1.73 >60 mL/min/1.73 eGFR - if non Am 102 mL/min/1.73 >60 mL/min/1. 73 Glucose 174 mg/dL 65-99 mg/dL Potassium 4.5 mmol/L 3.5-5.0 mmol/L Sodium 135 mmol/L 135-145 mmol/L Urea Nitrogen 11 mg/dL 7-18 mg/dL HbA1c/eAG-Glycosylated Hgb Reviewed date:05/14/2017 12:35:02 Interpretation: Performing Lab: Notes/Report: Estimated Average Glucose 197 mg/dL 82-123 mg/dL HbA1c 8.50 % 4.50-5.90 % CBC Reviewed date:05/14/2017 12:35:38 Interpretation: Performing Lab: Notes/Report: Hematocrit 44.4 % 37.9-47.7 % Hemoglobin 14.6 gm/dl 13.1-16.4 gm/dl MCH 31.5 27.8-32.1 MCHC 32.9 32.9-36.0 MCV 96 fL 80-95 fL Platelet 312 K/uL 151-360 K/uL RBC 4.6 M/uL 4.4-5.5 M/uL RDW 12.8 12.9-14.7 WBC 6.1 K/uL 4.0-11.0 K/uL Lipid Panel Reviewed date:05/14/2017 12:34:55 Interpretation: Performing Lab:,Is the patient fasting? Yes Notes/Report: Cholesterol 185 mg/dL <200 mg/dL Cholesterol/HDL Ratio 5.0 2.5-5.7 High Density Lipoprotein 37 mg/dL 40-60 mg/dL Triglycerides 452 mg/dL 35-160 mg/dL Creatinine Reviewed date:01/13/2017 14:32:52 Interpretation: Performing Lab: Notes/Report: Creatinine 0.70 mg/dL 0.50-1.20 mg/dL eGFR - if Am 119 mL/min/1.73 >60 mL/min/1.73 eGFR - if non Am 103 mL/min/1.73 >60 mL/min/1. 73 Potassium Reviewed date:01/13/2017 14:32:52 Interpretation: Performing Lab: Notes/Report: Potassium 5.0 mmol/L 3.5-5.0 mmol/L Lipid Panel Reviewed date:01/13/2017 14:32:52 Interpretation: Performing Lab:,Is the patient fasting? Yes Notes/Report: Cholesterol 179 mg/dL <200 mg/dL Cholesterol/HDL Ratio 4.2 2.5-5.7 High Density Lipoprotein 43 mg/dL 40-60 mg/dL Low Density Lipoprotein 78 mg/dL <130 mg/dL Triglycerides 292 mg/dL 35-160 mg/dL X ray : C Arm, Hip Reviewed date:11/12/2016 14:59:52 Interpretation: Performing Lab: Notes/Report: X ray : Pelvis Reviewed date:11/12/2016 14:59:56 Interpretation: Performing Lab: Notes/Report: Urine Culture Reviewed date:11/05/2016 15:21:59 Interpretation: Performing Lab: Notes/Report: Urine Culture-BAP 0 colonies cfu/mL Urine Culture-MAC 0 colonies cfu/mL Urinalysis w/UC reflex Reviewed date:10/26/2016 11:53:14 Interpretation: Performing Lab:,Urine Specimen Source Clean Catch Notes/Report: U Bacteria Occasional HPF Negative HPF U Bilirubin Negative Negative U Blood Negative Negative Clarity Clear Clear Color Yellow Yellow U Glucose 100 mg/dL mg/dL Negative mg/dL U Ketone Negative mg/dL Negative mg/dL U Leukocytes Negative Negative Mucus Occasional LPF Negative LPF U Nitrite Negative Negative U pH 7.0 5.0-8.0 U Protein Negative mg/dL Negative mg/dL U RBC 0-2 #/HPF 0-2 #/HPF Squamous Epithelial Cells Occasional LPF Negative LPF Urobilinogen 0.2 E.U./dL E.U./dL 0.2-1.0 E.U./dL U WBC Negative #/HPF 0-2 #/HPF Specific [place] 1.025 1.010-1.030 Creatinine Reviewed date:10/12/2016 09:58:14 Interpretation: Performing Lab: Notes/Report: Creatinine 0.70 mg/dL 0.50-1.20 mg/dL eGFR - if Am 119 mL/min/1.73 >60 mL/min/1.73 eGFR - if non Am 103 mL/min/1.73 >60 mL/min/1. 73 Microalbumin/Creatinine Rati o Reviewed date:10/12/2016 09:58:14 Interpretation: Performing Lab: Notes/Report: Creatinine,Urine 154.4 mg/dL 21.5-297.0 mg/dL Microalbumin/Creat Ratio 12.9 mg/g 0.0-29.0 mg/g Microalbumin, Urine 19.9 ug/mL 0.0-19.0 ug/mL Potassium Reviewed date:10/12/2016 09:58:14 Interpretation: Performing Lab: Notes/Report: Potassium 4.4 mmol/L 3.5-5.0 mmol/L HbA1c/eAG-Glycosylated Hgb Reviewed date:10/12/2016 09:58:14 Interpretation: Performing Lab: Notes/Report: Estimated Average Glucose 189 mg/dL 82-123 mg/dL HbA1c 8.20 % 4.50-5.90 % Lipid Panel Reviewed date:10/12/2016 09:58:14 Interpretation: Performing Lab:,Is the patient fasting? Yes Notes/Report: Cholesterol 198 mg/dL <200 mg/dL Cholesterol/HDL Ratio 4.8 2.5-5.7 High Density Lipoprotein 41 mg/dL 40-60 mg/dL Low Density Lipoprotein 83 mg/dL <130 mg/dL Triglycerides 368 mg/dL 35-160 mg/dL X ray : Hip, right, 2 views Reviewed date:10/06/2016 15:01:35 Interpretation: Performing Lab: Notes/Report: Basic Metabolic Panel Reviewed date:04/05/2016 21:26:00 Interpretation: Performing Lab:,Is the patient fasting? Yes Notes/Report: Anion Gap 11.0 mmol/L 8.0-16.0 mmol/L Calcium 10.2 mg/dL 8.4-10.2 mg/dL Carbon Dioxide 28 mmol/L 22-30 mmol/L Chloride 99 mmol/L 98-107 mmol/L Creatinine 0.70 mg/dL 0.50-1.20 mg/dL eGFR - if Am 120 mL/min/1.73 >60 mL/min/1.73 eGFR - if non Am 103 mL/min/1.73 >60 mL/min/1. 73 Glucose 189 mg/dL 65-99 mg/dL Potassium 4.3 mmol/L 3.5-5.0 mmol/L Sodium 138 mmol/L 135-145 mmol/L Urea Nitrogen 15 mg/dL 7-18 mg/dL HbA1c/eAG-Glycosylated Hgb Reviewed date:04/05/2016 21:26:00 Interpretation: Performing Lab:,A copy of this report will be faxed to: Nicol Bonilla Notes/Report: Estimated Average Glucose 166 mg/dL 82-123 mg/dL HbA1c 7.40 % 4.50-5.90 % Electrocardiogram (EKG) Reviewed date:04/02/2016 15:21:05 Interpretation: Performing Lab: Notes/Report: Colonoscopy Reviewed date:03/27/2016 19:23:11 Interpretation: Performing Lab: Notes/Report: MRI : Lumbar Spine Reviewed date:01/16/2016 14:48:29 Interpretation: Performing Lab: Notes/Report: ALT Reviewed date:09/19/2015 04:05:50 Interpretation: Performing Lab: Notes/Report: ALT 28 U/L 20-70 U/L BUN Reviewed date:09/19/2015 04:05:50 Interpretation: Performing Lab: Notes/Report: Urea Nitrogen 22 mg/dL 7-18 mg/dL Creatinine Reviewed date:09/19/2015 04:05:50 Interpretation: Performing Lab: Notes/Report: Creatinine 0.8 mg/dL 0.5-1.2 mg/dL Glomerular Filtration Rate 99 >60 Microalbumin/Creatinine Rati o Reviewed date:09/19/2015 04:05:50 Interpretation: Performing Lab: Notes/Report: Creatinine,Urine 128.2 mg/dL 21.5-297.0 mg/dL Microalbumin/Creat Ratio 10.4 mg/g 0.0-29.0 mg/g Microalbumin, Urine 13.3 ug/mL 0.0-19.0 ug/mL HbA1c/eAG-Glycosylated Hgb Reviewed date:09/19/2015 04:05:50 Interpretation: Performing Lab: Notes/Report: Estimated Average Glucose 154 mg/dL 82-123 mg/dL HbA1c 7.00 % 4.50-5.90 % Magnesium Reviewed date:09/19/2015 04:05:50 Interpretation: Performing Lab: Notes/Report: Magnesium 2.1 mg/dL 1.7-2.5 mg/dL Lipid Panel Reviewed date:09/19/2015 04:05:50 Interpretation: Performing Lab:,Is the patient fasting? Yes Notes/Report: Cholesterol 205 mg/dL <200 mg/dL Cholesterol/HDL Ratio 4.9 2.5-5.7 High Density Lipoprotein 42 mg/dL 40-60 mg/dL Low Density Lipoprotein 85 mg/dL <130 mg/dL Triglycerides 391 mg/dL 35-160 mg/dL Electrolyte Panel Reviewed date:09/19/2015 04:05:50 Interpretation: Performing Lab: Notes/Report: Anion Gap 8.0 mmol/L 8.0-16.0 mmol/L Carbon Dioxide 28 mmol/L 22-30 mmol/L Chloride 101 mmol/L 98-107 mmol/L Potassium 4.3 mmol/L 3.5-5.0 mmol/L Sodium 137 mmol/L 135-145 mmol/L Potassium Reviewed date:11/26/2014 08:44:10 Interpretation:* Performing Lab: Notes/Report: Potassium 4.8 mmol/L 3.5-5.0 mmol/L HbA1c/eAG-Glycosylated Hgb Reviewed date:11/26/2014 08:44:10 Interpretation:* Performing Lab: Notes/Report: Estimated Average Glucose 143 mg/dL 82-123 mg/dL HbA1c 6.60 % 4.50-5.90 % Lipid Panel Reviewed date:11/26/2014 08:44:10 Interpretation:* Performing Lab:,Is the patient fasting? Yes Notes/Report: Cholesterol 215 mg/dL <200 mg/dL Cholesterol/HDL Ratio 5.2 2.5-5.7 High Density Lipoprotein 41 mg/dL 40-60 mg/dL Low Density Lipoprotein 119 mg/dL <130 mg/dL Triglycerides 277 mg/dL 35-160 mg/dL Basic Metabolic Panel Reviewed date:04/20/2014 14:07:15 Interpretation:* Performing Lab:,Is the patient fasting? Yes Notes/Report: Anion Gap 7.0 mmol/L 8.0-16.0 mmol/L Calcium 10.0 mg/dL 8.4-10.2 mg/dL Carbon Dioxide 28 mmol/L 22-30 mmol/L Chloride 104 mmol/L 98-107 mmol/L Creatinine 0.8 mg/dL 0.5-1.2 mg/dL Glomerular Filtration Rate 100 >60 Glucose 110 mg/dL 65-99 mg/dL Potassium 4.3 mmol/L 3.5-5.0 mmol/L Sodium 139 mmol/L 135-145 mmol/L Urea Nitrogen 14 mg/dL 7-18 mg/dL ALT Reviewed date:04/20/2014 14:07:15 Interpretation:* Performing Lab: Notes/Report: ALT 33 U/L 20-70 U/L Microalbumin/Creatinine Rati o Reviewed date:04/20/2014 14:07:15 Interpretation:* Performing Lab: Notes/Report: Creatinine,Urine 80.3 mg/dL 21.5-297.0 mg/dL Microalbumin/Creat Ratio <7.5 mg/g 0.0-29.0 mg/g Microalbumin, Urine <6.0 ug/mL 0.0-19.0 ug/mL HbA1c/eAG-Glycosylated Hgb Reviewed date:04/20/2014 14:07:15 Interpretation:* Performing Lab: Notes/Report: Estimated Average Glucose 137 mg/dL 82-123 mg/dL HbA1c 6.40 % 4.50-5.90 % Lipid Panel Reviewed date:04/20/2014 14:07:15 Interpretation:* Performing Lab:,Is the patient fasting? Yes Notes/Report: Cholesterol 194 mg/dL <200 mg/dL Cholesterol/HDL Ratio 4.9 2.5-5.7 High Density Lipoprotein 40 mg/dL 40-60 mg/dL Low Density Lipoprotein 83 mg/dL <130 mg/dL Triglycerides 354 mg/dL 35-160 mg/dL Basic Metabolic Panel Reviewed date:11/07/2013 13:09:50 Interpretation: Performing Lab:,Is the patient fasting? No Notes/Report: Anion Gap 8.0 mmol/L 8.0-16.0 mmol/L Calcium 9.6 mg/dL 8.4-10.2 mg/dL Carbon Dioxide 29 mmol/L 22-30 mmol/L Chloride 102 mmol/L 98-107 mmol/L Creatinine 0.9 mg/dL 0.5-1.2 mg/dL Glomerular Filtration Rate 87 >60 Glucose 105 mg/dL 65-99 mg/dL Potassium 4.3 mmol/L 3.5-5.0 mmol/L Sodium 139 mmol/L 135-145 mmol/L Urea Nitrogen 18 mg/dL 7-18 mg/dL HbA1c/eAG-Glycosylated Hgb Reviewed date:11/07/2013 13:09:50 Interpretation: Performing Lab: Notes/Report: Glycosylated Hemoglobin 5.80 % 4.20-5.80 % X ray : Toe(s), right, min 2 views Reviewed date:11/14/2013 08:46:58 Interpretation: Performing Lab: Notes/Report: X ray : Foot, right, 3 views Reviewed date:12/13/2012 14:20:58 Interpretation: Performing Lab: Notes/Report: Basic Metabolic Panel Reviewed date:11/17/2012 08:56:39 Interpretation:Positive * Performing Lab:,Is the patient fasting? Yes Notes/Report: Anion Gap 9.0 mmol/L 8.0-16.0 mmol/L Calcium 9.7 mg/dL 8.4-10.2 mg/dL Carbon Dioxide 29 mmol/L 22-30 mmol/L Chloride 102 mmol/L 98-107 mmol/L Creatinine 0.9 mg/dL 0.5-1.2 mg/dL Glomerular Filtration Rate 87 >60 Glucose 95 mg/dL 65-99 mg/dL Potassium 4.5 mmol/L 3.5-5.0 mmol/L Sodium 140 mmol/L 135-145 mmol/L Urea Nitrogen 17 mg/dL 7-18 mg/dL ALT Reviewed date:11/17/2012 08:56:39 Interpretation:Positive * Performing Lab: Notes/Report: ALT 33 U/L 20-70 U/L HbA1c/eAG-Glycosylated Hgb Reviewed date:11/17/2012 08:56:39 Interpretation:Positive * Performing Lab: Notes/Report: Glycosylated Hemoglobin 5.50 % 4.20-5.80 % Lipid Panel Reviewed date:11/17/2012 08:56:39 Interpretation:Positive * Performing Lab:,Is the patient fasting? Yes Notes/Report: Cholesterol 207 mg/dL <200 mg/dL Cholesterol/HDL Ratio 4.5 2.5-5.7 High Density Lipoprotein 46 mg/dL 40-60 mg/dL Low Density Lipoprotein 112 mg/dL <130 mg/dL Triglycerides 244 mg/dL 35-160 mg/dL CULT-ANAEROBIC/AEROBIC Reviewed date:04/15/2012 08:19:27 Interpretation:* Performing Lab:,Source-NMRL right calf Notes/Report: RESULTS RECEIVED Yes Basic Metabolic Panel Reviewed date:03/18/2012 06:59:20 Interpretation:Positive Performing Lab:,Is the patient fasting? Yes Notes/Report: AGP 8.0 mmol/L 8.0-16.0 mmol/L CA 9.9 mg/dL 8.4-10.2 mg/dL CO2 28 mmol/L 22-30 mmol/L CL 104 mmol/L 98-107 mmol/L CREAT 0.9 mg/dL 0.5-1.2 mg/dL GFR 88 >60 GLU 106 mg/dL 65-99 mg/dL K+ 4.3 mmol/L 3.5-5.0 mmol/L NA 140 mmol/L 135-145 mmol/L BUN 15 mg/dL 7-18 mg/dL ALT Reviewed date:03/18/2012 06:59:20 Interpretation:Positive Performing Lab: Notes/Report: ALT 27 U/L 20-70 U/L HbA1c/eAG-Glycosylated Hgb Reviewed date:03/18/2012 06:59:20 Interpretation:Positive Performing Lab: Notes/Report: d%A1C 5.50 % 4.20-5.80 % Lipid Panel Reviewed date:03/18/2012 06:59:20 Interpretation:Positive Performing Lab:,Is the patient fasting? Yes Notes/Report: CHOL 202 mg/dL <200 mg/dL CHOL/HDL 4.7 2.5-5.7 HDL 43 mg/dL 40-60 mg/dL LDL 111 mg/dL <130 mg/dL TRIG 240 mg/dL 35-160 mg/dL SPOT MICROALBUMIN URINE Reviewed date:03/28/2012 11:36:35 Interpretation: Performing Lab: Notes/Report: RESULTS RECEIVED Yes HbA1c/eAG-Glycosylated Hgb Reviewed date:03/16/2012 11:58:37 Interpretation: Performing Lab: Notes/Report: HbA1c HbA1c 5.50 4.2 - 5.8 %NGSP eAG Basic Metabolic Panel Reviewed date:05/18/2012 06:21:22 Interpretation: Performing Lab:,Is the patient fasting? No Notes/Report: AGP 8.0 mmol/L 8.0-16.0 mmol/L CA 9.6 mg/dL 8.4-10.2 mg/dL CO2 28 mmol/L 22-30 mmol/L CL 104 mmol/L 98-107 mmol/L CREAT 0.8 mg/dL 0.5-1.2 mg/dL GFR 101 >60 GLU 75 mg/dL 65-99 mg/dL K+ 4.5 mmol/L 3.5-5.0 mmol/L NA 140 mmol/L 135-145 mmol/L BUN 13 mg/dL 7-18 mg/dL Glucose Reviewed date:03/16/2012 11:57:37 Interpretation: Performing Lab: Notes/Report: Glucose 75 65 - 99 mg/dl Lipid Panel Reviewed date:03/16/2012 12:00:16 Interpretation: Performing Lab: Notes/Report: Cholesterol 174 0 - 200 mg/dl High Density Lipoprotein 43 40 - 60 mg/dl Triglycerides 223 35 - 160 mg/dl Cholesterol/HDL Ratio 4.0 2.5 - 5.7 Low Density Lipoprotein 86 0 - 130 ALT Reviewed date:05/04/2012 04:48:08 Interpretation: Performing Lab: Notes/Report: ALT 24 U/L 20-70 U/L HbA1c/eAG-Glycosylated Hgb Reviewed date:05/04/2012 04:48:08 Interpretation: Performing Lab: Notes/Report: d%A1C 5.90 % 4.20-5.80 % Lipid Panel Reviewed date:05/04/2012 04:48:08 Interpretation: Performing Lab: Notes/Report: CHOL 174 mg/dL <200 mg/dL CHOL/HDL 4.0 2.5-5.7 HDL 43 mg/dL 40-60 mg/dL LDL 86 mg/dL <130 mg/dL TRIG 223 mg/dL 35-160 mg/dL REASON FOR VISIT No Information MEDICAL (GENERAL) HISTORY Type Description Date Medical History Type 2 diabetes 08/26 Medical History Hypertension Medical History Dyslipidemia/increased triglycer ides Medical History Undescended left mati tis, s/p orchipexy 1967, orchidectomy 2006 Medical History Dactylocampis, conge nital, bilateral, s/p multiple left hand surgeries 1967, 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 canal stenosis, L4 nerve root, S1 nerve root compression 2007 in [place]. Similar findings 01/29. Patient to try to get images sent up Medical History Bilateral sensorineural hearing loss Medical History Right hip djd 10/02, referred to Ortho Surgical History Multiple left hand surgeries fo r dactylocampis '68, , Surgical History Left orchipexy,inguinal hernia repair 1967 Surgical History Varicose vein removal 1986 Surgical History Laminectomy/discecto my L5-SI, secondary to ruptured disc 1989 Surgical History Left orchiectomy 2006 Surgical History Right forearm ORIF secondary to trauma 1975 Surgical History Left achilles tendon rupture 02 02 Surgical History Decompression of L5-S1 herniate d disc 03/31 Surgical History right total hip replacement 11/14 7 Surgical History 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 Colonoscopy: last done 03/2016. Due. Ordered today. PSA: done today. Vaccines: Tdap today. Booster today. Then up to date. Aug, Hypertension (ICD-10 - I10) BP looks good. Lab is current. Cont here. OK to refill for the next year when needed. 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 Cont here. Refills ok for the next 6 months when needed. Due for lab and appt at that time. Orders entered. Aug, Mixed dyslipidemia (ICD-10 - E78.2) Labs due with next draw. Orders entered. 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 Advised against continued use of q-tips in ear canal. ALYSSA flushed ear with good results, hearing improved upon removal of wax. Debrox prn OTC for recurrence of sx. , The total number of minutes spent today on the following activities was [34]. , counseling and educating the patient/family/car egiver, documenting clinical information in the electronic medical record, performing a medically necessary examination and/or evaluation, preparing to see patient. 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 Fasting sugars improved to 130s now. Refilled Trulicity today. A1C today. Follow-up with PCP as previously planned. Feb, Failed hearing screening (ICD-10 - R94.120) Please note, you failed the hearing screen. We recommend an appointment with the Child Care Centre Director for a complete hearing evaluation. Please stop at the manager front before you leave the clinic or call [phone] to schedule an appointment with a Child Care Centre Director at [facility]. 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 Lot # [id number], exp 04/2021. He will take first dose today, then will take 2nd dose on 11/21. I will do a PA for insurance coverage. 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 He is going to check outside the office and will let me know if numbers remain elevated. If so, would add amlodipine 5 mg daily. 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 We discussed he is maxed out on glipizide and glimepiride. Adding tradjenta 5 mg daily. (Will substitute if insurance requires different med.) He will check numbers and update me in a couple weeks. Discussed if not improving, injectible meds are next. Discussed weekly Trulicity as likely next option. Jul, Diabetic nephropathy (ICD-10 - E11.21) Jul, Mixed dyslipidemia (ICD-10 - E78.2) Labs are current. Cont here. Jul, Lip lesion (ICD-10 - K13.0) He has an appt with derm next week. Advised him to have them look at this lesion for likely biopsy. 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 Labs are current. OK to refill for the next year when needed. 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 Will cont the glipizide XL 10 mg BID and increase the glimepiride to 4 mg TWO tabs daily. He will cont to check sugars and plan repeat of HbA1c in 3 months. Feb, Diabetic nephropathy (ICD-10 - E11.21) Stable. Will do urine with next blood draw. Feb, Mixed dyslipidemia (ICD-10 - E78.2) Labs are current. Feb, Skin lesion (ICD-10 - L98.9) I think he should see derm for this. He would prefer to see someone in [place]. He will let me know who he is going to see, and I will enter the referral. 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 Colonoscopy: Last done 2015. Next due 2020. PSA: orders entered. Vaccines: Up to date. Aug, Hypertension (ICD-10 - I10) BP control is adequate. Labs are current. OK to refill for the next 6 months when needed. 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 Aug, Mixed dyslipidemia (ICD-10 - E78.2) Pt will return for fasting labs. Aug, Prostate cancer screening (ICD-10 - Z12.5) Orders entered for lab. Jun, Hypertension (ICD-10 - I10) BP is up a little today. He will check BP outside the office, record, and give me an update in a couple weeks. No change in med today. 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 They did go up a little with concurrent URI. Will cont here for now and plan CPE and labs in August. He is agreeable. Jun, Mixed dyslipidemia (ICD-10 - E78.2) Labs are current. Jun, Acute URI (ICD-10 - J06.9) Recommend symptomatic treatment: rest, fluids, Tylenol, ibuprofen, Mucinex as needed. Follow up if not improving. 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 Cont here. F/U at next visit. 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 Will increase the glimepiride to 4 mg daily and cont the glipizide. He is working on weight loss and portion control, which is encouraged. Plan f/u with numbers again in a month. May, Mixed dyslipidemia (ICD-10 - E78.2) Labs are current. May, Plantar fasciitis of right foot (ICD-10 - M72.2) Sounds like plantar fasciitis. Reviewed ice and stretching (demonstrated.) Mar, Hypertension (ICD-10 - I10) BP looks fine. Cont here. BMP checked today. OK to refill for the next year, when needed. 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 HbA1c and urine microalbumin today. Will need to keep in mind he has not tolerated metformin previously. Mar, Diabetic nephropathy (ICD-10 - E11.21) Mar, Mixed dyslipidemia (ICD-10 - E78.2) Labs are current, and he is not fasting today. Cont here. Lipids will be due in Jun. 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 Cont here. Lab is current. 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 AM sugars are running high, and he will get some lows in the afternoon, depending on his activity and meal pattern. I suggested rather than increasing the glipizide XL to 20 mg in the AM to do 10 mg BID--which will hopefully avoid some of those overnight lows. He is agreeable. He will check sugars and get me an update in a couple weeks and plan recheck of HbA1c in 3 months. (Order entered.) Jul, Mixed dyslipidemia (ICD-10 - E78.2) Recent labs look good. Jul, Back pain (ICD-10 - M54.9) He will cont ice, Tylenol ES. Discussed muscle relaxer, but he is concerned about sedation and says it doesn't really bother him at night, so med is declined. 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 Med is refilled. Lab is current. He will resume med and have BP checked at work. 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 He will return for fasting lab in the next couple weeks and will adjust therapy accordingly. Feb, Mixed dyslipidemia (ICD-10 - E78.2) He will return for fasting lab in the next couple weeks and will adjust therapy accordingly. Feb, Hypertension (ICD-10 - I10) Nov, Venous stasis dermatitis of left lower extremity (ICD-10 - I87.2) Venous stasis dermatitis- trial of higher potency steroid ointment. Call me if wound appears to be getting infected. 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 Oct, Body mass index (BMI) 33.0-33.9, adult (ICD-10 - Z68.33) Oct, Obese (ICD-10 - E66.9) A healthy BMI is between 18.5 and 24.9. You have a high BMI (obese). Balanced meals, decreased calorie intake and increasing exercise will help improve your weight and BMI. 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 If still elevated, would need to consider further change in medication Oct, Diabetic nephropathy (ICD-10 - E11.21) recheck today Oct, Mixed dyslipidemia (ICD-10 - E78.2) recheck next time Oct, Hypertension (ICD-10 - I10) Blood pressure under adequate control. Check labs. 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 Stop metformin due to side effects. Start glipizide XL 2.5 mg daily. UPdate me with blood sugars in 2 weeks. We can increase the dose if it is not making enough impact. Work on cutting out carbs and increasing your exercise. Recommend eye appt and dental appt. Your elevated sugars put you at higher risk for peridontal disease. May, Diabetic nephropathy (ICD-10 - E11.21) Need excellent sugar and b/p control. 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 due to his recent surgery I don't think it A1c sooner than now would be very accurate. December, Diabetic nephropathy (ICD-10 - E11.21) This has been stable. December, Mixed dyslipidemia (ICD-10 - E78.2) Triglycerides have always run high for him, I'm hoping it will improve once she is more active. December, Hypertension (ICD-10 - I10) Blood pressure improved the 2nd measurement today. 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 He should NOT take this medication the day of surgery. Oct, Diabetic nephropathy (ICD-10 - E11.21) Oct, Mixed dyslipidemia (ICD-10 - E78.2) Oct, Degenerative joint disease (ICD-10 - M19.90) Oct, Hypertension (ICD-10 - I10) Goal blood pressure is less than 130/80. Oct, Bilateral sensorineural hearing loss (ICD-10 - H90.3) Patient is considering hearing aides. Follow up with [facility] at any [facility] location. Oct, Preoperative examination (ICD-10 - Z01.818) The patient is cleared medically for the proposed procedure. I have reviewed all medications with the patient today and I have given instructions on perioperative administration of medications. All pending test results will be forwarded to the surgery location. I appreciate the opportunity to provide a preoperative medical consultation on this patient. Please let me know if you have any questions. Oct, Bacteria in urine (ICD-10 - N39.0) No wbc in urine, so likely contamination. Culture sent to be sure. 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 anticipate A1C will be worse. He would probably prefer to have his hip fixed and then increase his exercise, but we'll see. 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 Perioperative glucose monitoring Avoid aspirin and ibuprofen products one week preoperative Patient will be brought to the OR per Dr. 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 Will check MRI of the back to better assess it's contribution to your pain. Your bursitis may benefit from continuous icing and PT, but it would be useful to see if Ortho has any other options as well. See Referral December, Hypertension (ICD-10 - I10) December, Obese (ICD-10 - E66.9) A healthy BMI is between 18.5 and 24.9. You have a high BMI (obese). Balanced meals, decreased calorie intake and increasing exercise will help improve your weight and BMI. December, Sacroiliac inflammation (ICD-10 - M46.1) December, Right hip pain (ICD-10 - M25.551) December, Trochanteric bursitis, right hip (ICD-10 - M70.61) December, Right lumbar radiculopathy (ICD-10 - M54.16) December, Family history of colon cancer (ICD-10 - Z80.0) Sep, Physical exam, annual (ICD-10 - Z00.00) Discussed findings on examination. Discussed healthy lifestyle, diet, exercise, and weight management. Will contact patient with pending laboratory results. Advised annual visit for preventive examination. Discussed schedule of regular preventive screening testing, including prostate cancer screening and colon cancer screening. 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 You have a high BMI (obese). Balanced meals, decreased calorie intake and increasing exercise will help improve your weight and BMI. Sep, Diabetic nephropathy (ICD-10 - E11.21) Sep, Mixed dyslipidemia (ICD-10 - E78.2) Sep, Degenerative joint disease (ICD-10 - M19.90) Sep, History of wound infection (ICD-10 - Z98.89) Sep, Hypertension (ICD-10 - I10) Sep, DJD (degenerative joint disease), lumbar (ICD-10 - M47.816) Sep, Hearing loss (ICD-10 - H91.90) Sep, Tinnitus (ICD-10 - H93.19) May, Essential (primary) hypertension (ICD-10 - I10) Nov, Dyslipidemia (ICD9-CM - 272.4) Nov, Diabetes mellitus type 2, diet-controlled (ICD9-CM - 250.00) Nov, Dyslipidemia (ICD9-CM - 272.4) Nov, Type 2 diabetes mellitus with neurological manifestations, controlled (ICD9-CM - 250.60) Nov, HTN (hypertension) (ICD9-CM - 401.9) Oct, Dyslipidemia (ICD9-CM - 272.4) Apr, Routine adult health maintenance (ICD9-CM - V70.0) Discussed findings on examination. Discussed healthy lifestyle, diet, exercise, and weight management. Will contact patient with pending laboratory results. Advised annual visit for preventive examination. Discussed schedule of regular preventive screening testing, including prostate cancer screening and colon cancer screening. Discussed controversy regarding PSA blood test. Apr, Type 2 diabetes mellitus with neurological manifestations, controlled (ICD9-CM - 250.60) Diabetes has been excellent with just diet control. Recheck A1C today along with microalbumin. Apr, HTN (hypertension) (ICD9-CM - 401.9) Blood pressure is at goal of less than 140/90. Apr, Dyslipidemia (ICD9-CM - 272.4) Elevated cholesterol. Continue medication. Check labs. We do recommend having your cholesterool and liver checked every six months. Apr, Trochanteric bursitis of right hip (ICD9-CM - 726.5) Trochanteric bursitis of right hip- see handout. Try icing 2-3 times a day for one week and see if that helps. If not, consider steroid shot from Dr. Sage or Dr. Dominguez. Apr, Hip flexor tendonitis (ICD9-CM - 727.09) Hip flexor tendointis/strain- see referral for PT. Oct, Toe infection (ICD9-CM - 686.9) Right second toe is very swollen but not red or warm, though he reports that it was red previously. Differential includes gout, infection, and local trauma, and without any pain or tenderness it is difficult to make a diagnosis. No bony involvement on radiograph. Will treat for infection, as this could have the worst sequelae and recommend that he see a supervising law enforcement analyst if not improved with antibiotics. Given the minor nature of the swelling without significant ulcuration, black areas or warmth or tenderness, will not cover for MRSA at this time. Follow-up with podiatry if not improved after antibiotics. Oct, Diabetes mellitus type 2, diet-controlled (ICD9-CM - 250.00) A1C is low, no changes to current regimen, other than checking his glucoses when he fixes his monitor. Nov, Pain in foot (ICD9-CM - 729.5) Nov, Hallux limitus (ICD9-CM - 735.8) Recommend custom orthotics, given Rx for this. Nov, Tendonitis of foot (ICD9-CM - 727.06) Ice affected area, take care to wrap the cold pack in a towel and use for no longer than 15 minutes twice per day. Consider physical therapy. Call if youd like to do this and I will send in a referal. Nov, Pain in both feet (ICD9-CM - 729.5) Nov, Routine health maintenance (ICD9-CM - V70.0) Nov, HTN (hypertension) (ICD9-CM - 401.9) Hypertension- a little high today. Patient will have his , who is a head inspector, check it for a while at let me know if above 130/80. Nov, Type 2 diabetes mellitus with neurological manifestations, controlled (ICD9-CM - 250.60) Diabetes has been excellent. Ok to stop Metformin. Check glucose three days a week and call me if running above 120 consistently. Otherwise recheck A1C in 3-4 months. Nov, Dyslipidemia (ICD9-CM - 272.4) Elevated LDL- add pravastatin. Recheck lipid/alt in 3 months. Nov, Diabetic nephropathy (ICD9-CM - 250.40) Nov, Other Bilateral foot pain- doesn't fit a typical pattern. He will let me know if he wants to see podiatry. Nov, HTN (hypertension) (ICD9-CM - 401.9) Nov, Type 2 diabetes mellitus with neurological manifestations, controlled (ICD9-CM - 250.60) Nov, Dyslipidemia (ICD9-CM - 272.4) Oct, Dyslipidemia (ICD9-CM - 272.4) Oct, HTN (hypertension) (ICD9-CM - 401.9) Oct, Type 2 diabetes mellitus with neurological manifestations, controlled (ICD9-CM - 250.60) Sep, Cellulitis (ICD9-CM - 682.9) Can not afford Avelox Sep, Cellulitis (ICD9-CM - 682.9) Continue local dressing with Mupirocin ointment. Tylenol/ ibuprofen as needed for pain. Leg elevation. Follow up if symptoms worsen. Mar, Wound infection (ICD9-CM - 958.3) Try the mupirocin for 1 week. Call me if wound is worsening on not improving. Mar, Dyslipidemia (ICD9-CM - 272.4) Elevated cholesterol- consider trying fish oil bid. Goal for LDL is less than 100. Mar, HTN (hypertension) (ICD9-CM - 401.9) Hypertension- suresh several times a week. Need to be consistently at 120/70 (or at least less than 130/80). Mar, Type 2 diabetes mellitus with neurological manifestations, controlled (ICD9-CM - 250.60) Diabetes- stable. Mar, Diabetic nephropathy (ICD9-CM - 250.40) Diabetic nephropathy-protei n in urine- we curb this by keeping your blood pressure under tight control. Mar, HTN (hypertension) (ICD9-CM - 401.9) Mar, Dyslipidemia (ICD9-CM - 272.4) Mar, Type 2 diabetes mellitus with neurological manifestations, controlled (ICD9-CM - 250.60) Mar, Hypertension (ICD9-CM - 401.9) Mar, DM type 2 (diabetes mellitus, type 2) (ICD9-CM - 250.00) Mar, Dyslipidemia (ICD9-CM - 272.4) Mar, DJD (degenerative joint disease) (ICD9-CM - 715.90) Feb, HTN (hypertension) (ICD9-CM - 401.9) Feb, Dyslipidemia (ICD9-CM - 272.4) Feb, Type 2 diabetes mellitus with neurological manifestations, controlled (ICD9-CM - 250.60) Sep, Type 2 diabetes mellitus with neurological manifestations, controlled (ICD9-CM - 250.60) patient not fasting today so wrote order for lipid panel to be done at the hospital. Today ronit hgbA1c, urine for micro, and bmp. Gave flu shot. Noted to have peripheral neuropathy today. Due to lower glucose levels, could consider dropping the evening dose of Metformin. Follow up 4-6 months. Sep, Actinic keratosis (ICD9-CM - 702.0) Sep, HTN (hypertension) (ICD9-CM - 401.9) Sep, Dyslipidemia (ICD9-CM - 272.4) PLAN OF TREATMENT Medication Medication Name Sig Start Date Stop Date Pravastatin Sodium 20 MG Take 1 tablet ( 20 mg) by mouth once daily. Trulicity 1.5 MG/0.5ML 1.5 mg weekly Sub cutaneous once a week Nov, glipiZIDE ER 10 MG Take 1 tablet (10 mg ) by mouth twice a day. Treatment Notes Assessment Notes Clinical Notes Cellulitis Can not afford Avelo x Diabetic nephropathy check creatnine Cellulitis Continue local dress ing with Mupirocin ointment. Tylenol/ ibuprofen as needed for pain. Leg elevation. Follow up if symptoms worsen. Diabetic nephropathy Stable. Will do uri ne with next blood draw. Routine adult health maintenance Discussed findings on examination. Discussed healthy lifestyle, diet, exercise, and weight management. Will contact patient with pending laboratory results. Advised annual visit for preventive examination. Discussed schedule of regular preventive screening testing, including prostate cancer screening and colon cancer screening. Discussed controversy regarding PSA blood test. Type 2 diabetes mellitus with other diabetic neurological complication REcheck A1C. If still elevated, would need to consider further change in medication Toe infection Follow-up with podia try if not improved after antibiotics. Diabetic nephropathy This has been stabl e. Physical exam, annual Discussed findings on examination. Discussed healthy lifestyle, diet, exercise, and weight management. Will contact patient with pending laboratory results. Advised annual visit for preventive examination. Discussed schedule of regular preventive screening testing, including prostate cancer screening and colon cancer screening. Discussed controversy regarding PSA blood test.,Body Mass Index: Care Instructions material was published to portal Physical exam, annual Lipids: orders ent ered. Colonoscopy: Last done 2015. Next due 2020. PSA: orders entered. Vaccines: Up to date. Pre-op evaluation Routine preoperative anesthesia evaluation Nothing to eat morning of surgery Take blood pressure medication with sip of water morning of surgery. Perioperative glucose monitoring Avoid aspirin and ibuprofen products one week preoperative Patient will be brought to the OR per Dr. Montoya for lumbar level back surgery BMI 32.0-32.9,adult You have mutliple re asons for pain. Will check MRI of the back to better assess it's contribution to your pain. Your bursitis may benefit from continuous icing and PT, but it would be useful to see if Ortho has any other options as well. See Referral Mixed dyslipidemia Labs are current. Type 2 diabetes mellitus with neurological manifestations, controlled Diabetes has been excellent. Ok to stop Metformin. Check glucose three days a week and call me if running above 120 consistently. Otherwise recheck A1C in 3-4 months. HTN (hypertension) Blood pressure is at goal of less than 140/90. Tendonitis of foot Ice affected area, t bashir care to wrap the cold pack in a towel and use for no longer than 15 minutes twice per day. Consider physical therapy. Call if youd like to do this and I will send in a referal. Hypertension BP improved on repea t. Cont here. F/U at next visit. Obese A healthy BMI is bet ween 18.5 and 24.9. You have a high BMI (obese). Balanced meals, decreased calorie intake and increasing exercise will help improve your weight and BMI. Hypertension BP is up today. He i s going to check outside the office and will let me know if numbers remain elevated. If so, would add amlodipine 5 mg daily. Type 2 diabetes mellitus with other diabetic neurological complication He will return for lab and will adjust accordingly. Failed hearing screening Please note, yo u failed the hearing screen. We recommend an appointment with the Child Care Centre Director for a complete hearing evaluation. Please stop at the manager front before you leave the clinic or call [phone] to schedule an appointment with a Child Care Centre Director at [facility]. Hypertension BP looks good. Cont here. Lab is current. Mixed dyslipidemia He will return for f pacheco lab in the next couple weeks and will adjust therapy accordingly. Family history of colon cancer Colonoscopy done 2016 Hypertension BP is up today, but he has been out of med for a week. Med is refilled. Lab is current. He will resume med and have BP checked at work. 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 Mixed dyslipidemia Labs are current. Impacted cerumen of left ear Impacted ce rumen in left canal as etiology of sensation of ear plugging and diminished hearing this AM. Advised against continued use of q-tips in ear canal. ALYSSA flushed ear with good results, hearing improved upon removal of wax. Debrox prn OTC for recurrence of sx. , The total number of minutes spent today on the following activities was [34]. , counseling and educating the patient/family/caregiver, documenting clinical information in the electronic medical record, performing a medically necessary examination and/or evaluation, preparing to see patient. Mixed dyslipidemia Labs due with next d raw. Orders entered. Type 2 diabetes mellitus with other diabetic neurological complication Last A1C in October 2020 >8%, Trulicity started November 2020. Fasting sugars improved to 130s now. Refilled Trulicity today. A1C today. Follow-up with PCP as previously planned. Type 2 diabetes mellitus with other diabetic neurological complication Given sample of Trulicity 0.75 mg weekly. Lot # [id number], exp 04/2021. He will take first dose today, then will take 2nd dose on 11/21. I will do a PA for insurance coverage. HTN (hypertension) Hypertension- suresh s everal times a week. Need to be consistently at 120/70 (or at least less than 130/80). Physical exam, annual Lipids: Due in Oct. Colonoscopy: last done 03/2016. Due. Ordered today. PSA: done today. Vaccines: Tdap today. Booster today. Then up to date. Hypertension BP looks good. Lab i s current. Cont here. OK to refill for the next year when needed. Skin lesion I think he should se e derm for this. He would prefer to see someone in [place]. He will let me know who he is going to see, and I will enter the referral. Hypertension stable Dyslipidemia Elevated cholesterol - consider trying fish oil bid. Goal for LDL is less than 100. Mixed dyslipidemia recheck next time Hypertension Blood pressure impro mary lou the 2nd measurement today. Kidneys electrolytes are good Type 2 diabetes mellitus with other diabetic neurological complication Last HbA1c was at goal. He will return for fasting lab in the next couple weeks and will adjust therapy accordingly. Bilateral sensorineural hearing loss Patient is considering hearing aides. Follow up with [facility] at any [facility] location. Type 2 diabetes mellitus with other diabetic neurological complication HbA1c is fine. Cont here. Refills ok for the next 6 months when needed. Due for lab and appt at that time. Orders entered. Hypertension Blood pressure under adequate control. Check labs. Mixed dyslipidemia Recent labs look goo d. Preoperative examination [facility] ient is cleared medically for the proposed procedure. I have reviewed all medications with the patient today and I have given instructions on perioperative administration of medications. All pending test results will be forwarded to the surgery location. I appreciate the opportunity to provide a preoperative medical consultation on this patient. Please let me know if you have any questions. Type 2 diabetes mellitus with other diabetic neurological complication He has been taking 15 mg of glipizide XL in the AM, and he is not always eating mid-day. AM sugars are running high, and he will get some lows in the afternoon, depending on his activity and meal pattern. I suggested rather than increasing the glipizide XL to 20 mg in the AM to do 10 mg BID--which will hopefully avoid some of those overnight lows. He is agreeable. He will check sugars and get me an update in a couple weeks and plan recheck of HbA1c in 3 months. (Order entered.) Hip flexor tendonitis Hip flexor tendointis/strain- see referral for PT. Bacteria in urine No wbc in urine, so likely contamination. Culture sent to be sure. Type 2 diabetes mellitus with neurological manifestations, controlled patient not fasting today so wrote order for lipid panel to be done at the hospital. Today ronit hgbA1c, urine for micro, and bmp. Gave flu shot. Noted to have peripheral neuropathy today. Due to lower glucose levels, could consider dropping the evening dose of Metformin. Follow up 4-6 months. Wound infection Try the mupirocin fo r 1 week. Call me if wound is worsening on not improving. Hypertension BP looks fine. Cont here. BMP checked today. OK to refill for the next year, when needed. Hypertension BP control is adequa te. Labs are current. OK to refill for the next 6 months when needed. Lip lesion He has an appt with derm next week. Advised him to have them look at this lesion for likely biopsy. Type 2 diabetes mellitus with neurological manifestations, controlled Diabetes has been excellent with just diet control. Recheck A1C today along with microalbumin. Trochanteric bursitis of right hip Trochanteric bursitis of right hip- see handout. Try icing 2-3 times a day for one week and see if that helps. If not, consider steroid shot from Dr. Sage or Dr. Dominguez. HTN (hypertension) Hypertension- a david le high today. Patient will have his , who is a head inspector, check it for a while at let me know if above 130/80. Type 2 diabetes mellitus with other diabetic neurological complication HbA1c and home sugars are up. We discussed he is maxed out on glipizide and glimepiride. Adding tradjenta 5 mg daily. (Will substitute if insurance requires different med.) He will check numbers and update me in a couple weeks. Discussed if not improving, injectible meds are next. Discussed weekly Trulicity as likely next option. Type 2 diabetes mellitus with other diabetic neurological complication Will adjust meds, pending lab results, if needed. HbA1c and urine microalbumin today. Will need to keep in mind he has not tolerated metformin previously. Type 2 diabetes mellitus with other diabetic neurological complication Numbers are looking ok but need to be better. Will increase the glimepiride to 4 mg daily and cont the glipizide. He is working on weight loss and portion control, which is encouraged. Plan f/u with numbers again in a month. Mixed dyslipidemia Labs are current. Co nt here. Plantar fasciitis of right foot Sounds like plantar fasciitis. Reviewed ice and stretching (demonstrated.) Type 2 diabetes mellitus with neurological manifestations, controlled Diabetes- stable. Dyslipidemia Elevated LDL- add pravastatin. Recheck lipid/alt in 3 months. Type 2 diabetes mellitus with other diabetic neurological complication Numbers seem better at the 4 mg of glimepiride dose. They did go up a little with concurrent URI. Will cont here for now and plan CPE and labs in August. He is agreeable. Back pain He will cont ice, Ty kassandra ES. Discussed muscle relaxer, but he is concerned about sedation and says it doesn't really bother him at night, so med is declined. Type 2 diabetes mellitus with other diabetic neurological complication Diabetes- recheck A1C in three months, along with triglycerides. due to his recent surgery I don't think it A1c sooner than now would be very accurate. Mixed dyslipidemia Labs are current, an d he is not fasting today. Cont here. Lipids will be due in Jun. Hallux limitus Recommend custom ort hotics, given Rx for this. Prostate cancer screening Orders entered for lab. Type 2 diabetes mellitus with other diabetic neurological complication Check labs. anticipate A1C will be worse. He would probably prefer to have his hip fixed and then increase his exercise, but we'll see. Diabetic nephropathy Diabetic nephropath y-protein in urine- we curb this by keeping your blood pressure under tight control. Hypertension Goal blood pressure is less than 130/80. Hypertension Blood pressure under adequate control. Mixed dyslipidemia Pt will return for f asting labs. Type 2 diabetes mellitus with other diabetic neurological complication A1C was elevated recently so metformin was started once daily. He should NOT take this medication the day of surgery. Obese A healthy BMI is julio ween 18.5 and 24.9. You have a high BMI (obese). Balanced meals, decreased calorie intake and increasing exercise will help improve your weight and BMI. Type 2 diabetes mellitus with other diabetic neurological complication It will be important to control blood sugars to aid in healing. Venous stasis dermatitis of left lower extremity Venous stasis dermatitis- trial of higher potency steroid ointment. Call me if wound appears to be getting infected. Dyslipidemia Elevated cholesterol . Continue medication. Check labs. We do recommend having your cholesterool and liver checked every six months. Type 2 diabetes mellitus with other diabetic neurological complication Diabetic average is elevated. Stop metformin due to side effects. Start glipizide XL 2.5 mg daily. UPdate me with blood sugars in 2 weeks. We can increase the dose if it is not making enough impact. Work on cutting out carbs and increasing your exercise. Recommend eye appt and dental appt. Your elevated sugars put you at higher risk for peridontal disease. Obese A healthy BMI is julio ween 18.5 and 24.9. You have a high BMI (obese). Balanced meals, decreased calorie intake and increasing exercise will help improve your weight and BMI. Type 2 diabetes mellitus with other diabetic neurological complication HbA1c has gone up, as have his home sugars. Will cont the glipizide XL 10 mg BID and increase the glimepiride to 4 mg TWO tabs daily. He will cont to check sugars and plan repeat of HbA1c in 3 months. Diabetic nephropathy Need excellent suga r and b/p control. Mixed dyslipidemia Triglycerides have a lways run high for him, I'm hoping it will improve once she is more active. Diabetic nephropathy recheck today Hypertension BP looks good. Labs are current. OK to refill for the next year when needed. Mixed dyslipidemia check cholesterol Mixed dyslipidemia Continue statin Hypertension BP is up a little to day. He will check BP outside the office, record, and give me an update in a couple weeks. No change in med today. Mixed dyslipidemia Labs are current. Right hip pain Significant right hp djd- refer to Ortho for possible surgery Acute URI Recommend symptomati c treatment: rest, fluids, Tylenol, ibuprofen, Mucinex as needed. Follow up if not improving. Future Test Test Name Order Date HbA1c/eAG-Glycosylated Hgb 20220302 Lipid Panel 20220302 Microalbumin/Creatinine Ratio [id number] Colonoscopy [id number] MRI : Lumbar Spine [id number] Basic Metabolic Panel [id number] Lipid Panel [id number] HbA1c/eAG-Glycosylated Hgb 20150525 Lipid Panel 20121122 ALT [id number] HbA1c/eAG-Glycosylated Hgb 20121122 Referrals Referral Date Details pain in feet only in am. better with movement, Patito Plascencia, [address], [place], [id number], Eval and treat for r ight hip flexor tendonitis/strain., Central Scheduling [facility] failed hearing scree n; needs eval., Evaluation [facility] Right hip pain. Some bursitis and SI pain. Cannot tolerate steroids. See MRI lumbar spine. Eval and treat Lumbar foraminal wang nosis with radiculopathy. Also right hip pain and loss of ROM. Consult and treat Right hip pain with abnormal xray. Consult and treat., Physician Appointments [facility] failed hearing, Prov ider Provider, [address], [place], [id number], failed hearing, Eval uation [facility] 1 omonth history of R great toe distal callus/ hyperkeratotic skin lesion- Dr. Joseph or Dr. Castro to evaluate and treat/ remove as indicated, [facility] Insurance Providers Payer Name Payer Address Payer Phone Insured Name Patient Relationship to Insured Coverage Start Date Coverage End Date Subscriber Number Group Number [employer] [place] [address] [address] [facility] [id number] [address] [place] - patient is the insured 2019 [id number]
--- NOTE | 2023-02-11 07:15 | CRLHL7_ITS ---
For Patients: As a result of the Century Cures Act, medical imaging exams and procedure reports are released immediately into your electronic medical record. You may view this report before your referring provider. If you have questions, please contact your health care provider. INDICATION: Right lower extremity varicose veins, history of GSV treatment x 2. COMPARISON: None available. TECHNIQUE: Venous insufficiency exam of the right lower extremity was performed with 2D and spectral analysis and color Doppler imaging per site specific protocol. FINDINGS: Right Leg Deep System Veins CFV: Competent. SFV proximal: Incompetent 1.1 seconds. SFV mid: Competent. SFV distal: Competent. POP: Competent. PTV1: Competent. PTV2: Competent. Right Leg Superficial Veins: SFJ: 9 mm, incompetent 0.6 seconds. GSV thigh proximal: Incompetent 1.8 seconds. GSV thigh mid: Competent. GSV thigh distal: -. GSV calf proximal: Incompetent 1.2 seconds. GSV calf mid: Competent. GSV calf distal: -. LSV proximal: -. LSV mid: Competent. In the right lower extremity the common femoral vein, the femoral vein, the popliteal vein and the visualized posterior tibial veins are patent and compressible. Isolated deep venous reflux is seen in the proximal SFV. The greater saphenous vein is seen segmentally at the saphenofemoral junction and proximal thigh where there is significant reflux. In the mid thigh, the greater saphenous vein appears chronically occluded but is not clear from the ip counsel`s table. There is a large varicosity measuring 6.5 mm with significant reflux in the mid thigh and also in the distal thigh which appears to communicate with the GSV in the mid thigh where there is significant reflux. Small caliber GSV in the proximal calf. The image of what is supposed to be the GSV in the mid calf may be the posterior tibial. Varicosity in the mid calf is seen. The ip counsel notes on the worksheet that they had significant difficulty imaging the full length of the [place] vessel with many areas of bridging varicosities. The smaller saphenous vein in the mid calf appeared patent without reflux but is otherwise not well seen. IMPRESSION: 1. Segmental areas of reflux and venous collaterals within areas of superficial veins as outlined above. 2. Isolated deep venous reflux in the proximal femoral vein. Dictated by Romel Loco MD @ 02/12/2023 2:14:48 PM (Electronically Signed)
== END 2023-02-11 07:05 | disposition home or self-care (01) ==
LOC: US 07:04
PROVIDERS: PCP Family Medicine; Visit Provider Family Medicine
DX: I83.811 Varicose veins of right lower extremity with pain (principal)
CPT/HCPCS: 93971

== ENCOUNTER 2023-05-18 09:52 | Emergency (ER) | payer MEDICARE, BC, SELFPAY ==
[2023-05-18] VITALS (10 sets, daily range): BP systolic 149–179; BP diastolic 96–101; PULSE 94–101; RESP 20; TEMP 36.6; O2SAT 96–99; BMI 30.7
--- NOTE | 2023-05-18 10:11 | CRLHL7_ITS ---
For Patients: As a result of the Cures Act, medical imaging exams and procedure reports are released immediately into your electronic medical record. You may view this report before your referring provider. If you have questions, please contact your health care provider. INDICATION: Chest pain TECHNIQUE: Chest 1 view COMPARISON: None FINDINGS: Cardiovascular and mediastinum: Cardiac silhouette is upper limits of normal. Lungs and pleural spaces: Lungs are clear. No sign of infiltrate or mass. No sign of pleural effusion. No pneumothorax. Bones and soft tissues: Mild degenerative changes. IMPRESSION: No acute findings. Dictated by Robert Yap MD @ 05/18/2023 10:39:26 AM (Electronically Signed)
[2023-05-18 10:20] LABS: Basophils Absolute Auto 0.05 K/uL (0.00-0.30); Basophils Percent Auto 0.5 % (0.0-3.0); Eosinophils Absolute Auto 0.29 K/uL (0.00-0.50); Eosinophils Percent Auto 2.8 % (0.0-7.0); Hematocrit 42.4 % (37.0-53.0); Hemoglobin* 14.6 gm/dL (13.5-17.5); Immature Granulocytes Abs Auto 0.02 K/uL (0.00-0.30); Immature Granulocytes Pct Auto 0.2 %; Mean Corpuscular HGB Conc 34 gm/dL (32-36); Mean Corpuscular Hemoglobin 31 pg (26-34); Mean Corpuscular Volume 91 fL (80-100); Monocytes Percent Auto 8.2 % (0.0-11.0); Neutrophils Percent Auto 43.3 % (42.0-72.0); Platelet Count* 301 K/uL (140-440); RDW Coefficient of Variation % 12.4 % (11.5-15.5); Red Blood Count 4.66 m/uL (4.30-5.90); White Blood Count* 10.39 K/uL (4.50-11.00)
[2023-05-18 10:22] LABS: Slide Review Reflex No
[2023-05-18 10:23] LABS: Troponin, Point-of-Care* 0.38 ng/ml (0.01-0.04)
--- NOTE | 2023-05-18 10:23 | ED_ITS ---
HPI - Chest Pain General Date Seen: 05/18/23 Chief Complaint: Chest Pain Stated Complaint: chest pain Time Seen by Provider: 05/18/23 10:00 Source: patient Mode of arrival: ambulatory Limitations: no limitations History of Present Illness HPI narrative: Patient is a 68-year-old male with a history of diabetes type 2, hypertension, hyperlipidemia presenting to the emergency department For chest discomfort. He states starting last night he had burning of his chest that is worse on the right side. Symptoms resolved with the bed. Woke up the symptoms came back again or not going places concerning came to the emergency department. This notice a family history of a grandfather who had a heart attack at 64 and his father has dilated cardiomyopathy. This states he was feeling sick couple days ago. No obvious symptomatology within fatigue at that time. Currently denies shortness of breath, abdominal pain, nausea, headache, vision changes, weakness, numbness, diarrhea, constipation, lightheadedness, dizziness. Denies having symptoms like this before. States he has never had issues with GERD in the past either. Related Data Home Medications Medication Instructions Recorded Confirmed aspirin 81 mg tablet,delayed 81 mg PO QDAY 06/04/22 03/08/23 release (Adult Low Dose Aspirin) Previous Rx's Medication Instructions Recorded dulaglutide 1.5 mg/0.5 mL 1.5 mg (0.5 mL) subcut QWEEK #2 mL 06/04/22 subcutaneous pen injector (Trulicity) glipizide 10 mg tablet 10 mg PO BID #180 tabs 06/04/22 pravastatin 20 mg tablet 20 mg PO QHS #90 tabs 06/04/22 valsartan 320 1 tab PO QDAY #90 tabs 06/04/22 mg-hydrochlorothiazide 12.5 mg tablet Allergies Allergy/AdvReac Type Severity Reaction Status Date / Time atorvastatin Allergy Unknown myalgia Verified 03/08/23 08:44 clindamycin Allergy Unknown Gastrointestinal Verified 03/08/23 08:44 Upset cortisone Allergy Unknown Hives Verified 03/08/23 08:44 metformin AdvReac Unknown Diarrhea Verified 03/08/23 08:44 Review of Systems Status of ROS Reports: 10 or more systems reviewed and unremarkable except as noted in History and below PFSH PFSH Medical History Hypertension ?I10 - Essential (primary) hypertension (ICD-10) Diabetic neuropathy associated with type 2 diabetes mellitus ?E11.40 - Type 2 diabetes mellitus with diabetic neuropathy, unspecified (ICD-10) Hearing loss ?H91.90 - Unspecified hearing loss, unspecified ear (ICD-10) Squamous cell carcinoma Basal cell carcinoma ?C44.91 - Basal cell carcinoma of skin, unspecified (ICD-10) Chronic left hip pain ?M25.552 - Pain in left hip (ICD-10) ?G89.29 - Other chronic pain (ICD-10) Dyslipidemia ?E78.5 - Hyperlipidemia, unspecified (ICD-10) Type 2 diabetes mellitus ?E11.9 - Type 2 diabetes mellitus without complications (ICD-10) Hypertension ?I10 - Essential (primary) hypertension (ICD-10) History of tobacco use ?Z87.891 - Personal history of nicotine dependence (ICD-10) Surgical History History of open reduction and internal fixation (ORIF) procedure (1975) ?Z98.890 - Other specified postprocedural states (ICD-10) History of varicose vein stripping (1986) ?Z98.890 - Other specified postprocedural states (ICD-10) Skin cancer ?C44.90 - Unspecified malignant neoplasm of skin, unspecified (ICD-10) History of orchiectomy, unilateral (07/25/07) ?Z90.79 - Acquired absence of other genital organ(s) (ICD-10) History of right hip replacement (2016) ?Z96.641 - Presence of right artificial hip joint (ICD-10) S/P laparotomy (1990) ?Z98.890 - Other specified postprocedural states (ICD-10) History of inguinal hernia repair (1966) ?Z98.890 - Other specified postprocedural states (ICD-10) ?Z87.19 - Personal history of other diseases of the digestive system (ICD-10) History of lumbar surgery ?Z98.890 - Other specified postprocedural states (ICD-10) History of hand surgery ?Z98.890 - Other specified postprocedural states (ICD-10) History of Achilles tendon repair (07/20/06) ?Z98.890 - Other specified postprocedural states (ICD-10) Family History Paternal Grandmother CHF (congestive heart failure) Father Cardiomyopathy Diabetes Prostate cancer Mother Stroke, Onset Age: 70 Colon cancer, Onset Age: 78 Diabetes Glaucoma High blood pressure Maternal Grandmother Colon cancer, Onset Age: 75 CHF (congestive heart failure) Paternal Grandfather Stomach cancer Maternal Grandfather Myocardial infarction Sister Lung cancer, Onset Age: 43 Son Seizure disorder Esophageal atresia Social History Narrative: , 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 Exercises daily by walking dog and biking 8-9 miles Ex-smoker quit 2021 before then 6 pack years, has stopped smoking cigars as well 1 alcoholic drink a week Smoking Status: Current some day smoker Do you use any of these nicotine containing products: None Second hand tobacco smoke exposure: No How often do you have a drink containing alcohol: never How often do you have six or more drinks on one occasion: Never AUDIT-C Alcohol total score: 0 Non-prescribed substance use: denies use Little interest or pleasure in doing things: not at all Feeling down, depressed, or hopeless: not at all service: No Exam Narrative Exam Narrative: Const: Well-nourished, Well-developed, in mild distress Eyes: PERRL, no conjunctival injection, and symmetrical lids HENT: Atraumatic external nose and ears. Moist mucous membranes. Neck: Symmetric, trachea midline, No thyromegaly. CVS: RRR, No murmurs or gallops. Peripheral pulses 2+ and equal in all extremities RESP: Unlabored respiratory effort. Clear to auscultation bilaterally. GI: Nontender/Nondistended, No rebound or guarding. MSK:Extremities w/o deformity, Normal Active ROM Skin: Warm, Dry. No rashes or lesions. Neuro: Normal Muscle tone, No focal neurological deficits. Psych: Awake, Alert, & Oriented x3. Appropriate mood and affect. Const Vital Signs, click to edit/add: Vital Signs - 24 hr 05/18/23 09:59 05/18/23 10:02 05/18/23 10:03 Temperature 97.8 F Pulse Rate 98 98 Pulse Rate [Pulse Oximeter] 101 H Respiratory Rate 20 Blood Pressure 179/99 H Blood Pressure [Left Upper Arm] 179/99 H Pulse Oximetry 98 99 Oxygen Delivery Method Room Air 05/18/23 10:15 05/18/23 10:31 05/18/23 10:45 Temperature Pulse Rate 97 97 94 Pulse Rate [Pulse Oximeter] Respiratory Rate Blood Pressure Blood Pressure [Left Upper Arm] Pulse Oximetry 98 98 97 Oxygen Delivery Method 05/18/23 10:59 05/18/23 11:00 05/18/23 11:02 Temperature Pulse Rate 98 99 100 Pulse Rate [Pulse Oximeter] Respiratory Rate Blood Pressure 149/101 H 174/100 H Blood Pressure [Left Upper Arm] Pulse Oximetry 99 98 98 Oxygen Delivery Method 05/18/23 11:11 Temperature Pulse Rate 98 Pulse Rate [Pulse Oximeter] Respiratory Rate Blood Pressure 167/96 H Blood Pressure [Left Upper Arm] Pulse Oximetry 96 Oxygen Delivery Method Course Vital Signs Vital signs: Initial Vital Signs Temperature 97.8 F 05/18/23 09:59 Temperature Source Temporal Artery Scan 05/18/23 09:59 Pulse Rate 101 H 05/18/23 09:59 Pulse Rhythm Regular 05/18/23 09:59 Respiratory Rate 20 05/18/23 09:59 Blood Pressure 179/99 H 05/18/23 09:59 Blood Pressure Mean 125 H 05/18/23 09:59 Blood Pressure Position Supine 05/18/23 09:59 Oxygen Delivery Method Room Air 05/18/23 09:59 Vital Signs Temperature 97.8 F 05/18/23 09:59 Pulse Rate 101 H 05/18/23 09:59 Respiratory Rate 20 05/18/23 09:59 Blood Pressure 179/99 H 05/18/23 09:59 Oxygen Delivery Method Room Air 05/18/23 09:59 Temperature 97.8 F 05/18/23 09:59 Pulse Rate 98 05/18/23 11:11 Respiratory Rate 20 05/18/23 09:59 Blood Pressure 167/96 H 05/18/23 11:11 Pulse Oximetry 96 05/18/23 11:11 Oxygen Delivery Method Room Air 05/18/23 09:59 MDM - Chest Pain MDM Narrative Medical decision making narrative: Patient is a 68-year-old male presents emergency department for burning sensation in his chest. This 1st started yesterday and went away and then came again this morning and has continued. He states it has been improving on its own. Does state he has some fatigue the other day to be related to a viral syndrome. Cardiac workup was ordered on this patient. Initially order Protonix as his symptoms seem to be related to GERD difficult point care troponin was yolis vated 0.38. Aspirin and heparin ordered. Symptoms are improving we did order nitroglycerin. The lab troponin came back at 0.49. This is not change our management this time. Creatinine is normal. EKG is unclear exactly if this is a STEMI as there is some abnormalities in V2. I spoke to Dr. English and considering this stability of the patient and his current symptoms he believes this is unlikely to be a STEMI and most likely to be a NSTEMI. Accepted patient for transfer. There is currently a 4-8 hour wait. Repeat troponin went from 0.49 and 0.99. At the night so his chest discomfort when the form a 2 to a 0.5. Initially said he has no more chest pain and then said there is a slight twinge. Patient was transferred by ground ambulance to [place]. Lab Data Labs: Lab Results 05/18/23 05/18/23 05/18/23 Range/Units 10:00 10:00 10:10 WBC 10.39 (4.50-11.00) K/uL RBC 4.66 (4.30-5.90) m/uL Hgb 14.6 (13.5-17.5) gm/dL Hct 42.4 (37.0-53.0) % MCV 91 (80-100) fL MCH 31 (26-34) pg MCHC 34 (32-36) gm/dL RDW Coeff of Evens 12.4 (11.5-15.5) % Plt Count 301 (140-440) K/uL Neut % (Auto) 43.3 (42.0-72.0) % Lymph % (Auto) 45.0 H (20-44) % [place] % (Auto) 8.2 (0.0-11.0) % Eos % (Auto) 2.8 (0.0-7.0) % Baso % (Auto) 0.5 (0.0-3.0) % Neut # (Auto) 4.50 (1.7-7.0) K/uL Lymph # (Auto) 4.70 H (0.90-2.90) K/uL [place] # (Auto) 0.90 (0.00-0.90) K/UL Eos # (Auto) 0.29 (0.00-0.50) K/uL Baso # (Auto) 0.05 (0.00-0.30) K/uL Abs Immat Gran (auto) 0.02 (0.00-0.30) K/uL Imm/Tot Granulo (auto) 0.2 % INR 0.92 (0.91-1.10) APTT 32 (23-33) Seconds Sodium 136 (135-149) mmol/L Potassium 4.3 (3.6-5.1) mmol/L Chloride 99 (96-114) mmol/L Carbon Dioxide 26 (20-32) mmol/L Anion Gap 11 (7-15) mEq/L BUN 16 (7-30) mg/dL Creatinine 0.8 (0.5-1.5) mg/dL Estimated Creat Clear 77.39 Estimated GFR 98 ml/min Glucose 262 H (60-115) mg/dL Calcium 10.0 (8.4-10.6) mg/dL Total Bilirubin 0.9 (0.1-1.5) mg/dL AST 45 H (12-35) U/L ALT 23 (4-50) U/L Alkaline Phosphatase 71 (40-150) U/L Troponin I 0.49 H* Cancelled (0.01-0.04) ng/mL NT-Pro-B Natriuret Pep 63 pg/mL Total Protein 7.1 (6.0-8.3) g/dL Albumin 4.7 (3.3-5.0) g/dL Lipase 89 (23-300) U/L Lab Acknowledgement POC Creatinine (0.6-1.3) mg/dl POC Troponin I 0.38 H (0.01-0.04) ng/ml 05/18/23 05/18/23 05/18/23 Range/Units 10:30 10:59 12:00 WBC (4.50-11.00) K/uL RBC (4.30-5.90) m/uL Hgb (13.5-17.5) gm/dL Hct (37.0-53.0) % MCV (80-100) fL MCH (26-34) pg MCHC (32-36) gm/dL RDW Coeff of Evens (11.5-15.5) % Plt Count (140-440) K/uL Neut % (Auto) (42.0-72.0) % Lymph % (Auto) (20-44) % [place] % (Auto) (0.0-11.0) % Eos % (Auto) (0.0-7.0) % Baso % (Auto) (0.0-3.0) % Neut # (Auto) (1.7-7.0) K/uL Lymph # (Auto) (0.90-2.90) K/uL [place] # (Auto) (0.00-0.90) K/UL Eos # (Auto) (0.00-0.50) K/uL Baso # (Auto) (0.00-0.30) K/uL Abs Immat Gran (auto) (0.00-0.30) K/uL Imm/Tot Granulo (auto) % INR (0.91-1.10) APTT (23-33) Seconds Sodium (135-149) mmol/L Potassium (3.6-5.1) mmol/L Chloride (96-114) mmol/L Carbon Dioxide (20-32) mmol/L Anion Gap (7-15) mEq/L BUN (7-30) mg/dL Creatinine (0.5-1.5) mg/dL Estimated Creat Clear Estimated GFR ml/min Glucose (60-115) mg/dL Calcium (8.4-10.6) mg/dL Total Bilirubin (0.1-1.5) mg/dL AST (12-35) U/L ALT (4-50) U/L Alkaline Phosphatase (40-150) U/L Troponin I (0.01-0.04) ng/mL NT-Pro-B Natriuret Pep pg/mL Total Protein (6.0-8.3) g/dL Albumin (3.3-5.0) g/dL Lipase (23-300) U/L Lab Acknowledgement Test Added POC Creatinine 0.8 (0.6-1.3) mg/dl POC Troponin I 0.99 H (0.01-0.04) ng/ml ECG Data Attestation: I personally reviewed and interpreted this ECG as follows: Interpretation: Sinus tachycardia with a rate of 101, normal axis, normal intervals. In need will be 1 there may be some very minimal ST elevations but is not quite reach 1 box and could also just be artifact based on appearance. V2 shows a relatively larger T-wave compared to rest of his EKG was with his possibly ST elevations. Appears as if the T elevations go directly into the T-wave but does not look like tombstones. Multiple EKGs were done they all look similar. Cardiology was consulted about the EKG Critical Care Time Critical Care Time Critical Care Time: Yes Attestation: The patient required my highest level preparedness to intervene emergently and I personally spent this critical care time directly and personally managing the patient. This critical care time included: Obtaining a history; Examining the patient; Pulse oximetry; Ordering and reviewing of studies; Arranging urgent treatment with development of a management plan; Evaluation of patients response to treatment; Frequent reassessment discussions with other providers. This critical care time was performed to assess and manage the high probability of imminent life-threatening deterioration that could result in multiorgan failure. It was exclusive of separate billable procedures and treating other patients and teaching time. Total Critical Care Time in Minutes: 32 Discharge Plan Discharge Clinical Impression: Acute non-ST elevation myocardial infarction (NSTEMI) Patient Disposition: Xfer [facility] Discharge Location: [facility] Condition: Stable Prescriptions: No Action aspirin [Adult Low Dose Aspirin] 81 mg tablet,delayed release (DR/EC) 81 mg PO QDAY Trulicity 1.5 mg/0.5 mL pen injector 1.5 mg subcut QWEEK Qty: 2 12RF glipizide 10 mg tablet 10 mg PO BID Qty: 180 4RF pravastatin 20 mg tablet 20 mg PO QHS Qty: 90 4RF valsartan-hydrochlorothiazide 320-12.5 mg tablet 1 tab PO QDAY Qty: 90 4RF Stand Alone Forms: [employer] Info Instructions
--- OUTSIDE RECORDS SUMMARY | 2023-05-18 10:33 | XMS_ITS | Patient Health Record ---
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 Name Role Phone Lydia Adler Primary Care Provider ALLERGIES Allergen (clinical drug ingredient) Drug/Non Drug Allergy documented on EMR Reaction Allergy Type Onset Date Status clindamycin Clindamycin HCl pruritus Drug Allergy Active atorvastatin Lipitor myalgias Drug Allergy Acti ve metformin Metformin HCl diarrhea Drug Allergy Act ciro Cortisone hives Drug Allergy Active REASON FOR REFERRAL No Information MEDICATIONS Medication SIG (Take, Route, Frequency, Duration) Notes Start Date End Date Status Trulicity 1.5 MG/0.5ML 1.5 mg weekly Subcutaneous once a week 11/14/2020 Active Valsartan-hydroCHLOR Othiazide 320-12.5 MG Take 1 tablet by mouth once daily. Active FreeStyle Test - as directed - 2x/day HAsn't bee n checking his blood sugars for 2 months 12/14/2011 Active Pravastatin Sodium 20 MG Take 1 tablet (20 mg) by mouth once daily. Active Lancets - twice daily as directed for 90 days 06/07/2017 Active Multiple Vitamin - 1 tablet Orally Once a day Active glipiZIDE ER 10 MG Take 1 tablet (10 mg ) by mouth twice a day. Active Fish Oil 1000 MG 1 capsule Orally Onc e a day Active Aspirin 81 MG 1 tablet Orally Once a day Active IMMUNIZATIONS Vaccine Route Administration Date Status Comme nts Tdap (Boostrix), 10+yrs Unknown 08/18/2010 Administered Per patient Tdap (Boostrix), 10+yrs IM Intramuscular 09/02/2021 Admini stered Pneumo-PPV23 ([id number]) 0 09/18/2010 Administered Historic - COVID, (Pfizer Purple, 12+) mRNA, LNP-S, PF, 30 mcg/0.3 ml Unknown 08/27/2020 Administered Historic - COVID, (Pfizer Purple, 12+) mRNA, LNP-S, PF, 30 mcg/0.3 ml Unknown 09/17/2020 Administered COVID, (Pfizer Booster Smith, 12+) mRNA, LNP-S, PF t-s 30mcg/0.3ml IM Intramuscular 09/02/2021 Administered SOCIAL HISTORY Sex Assigned At : Social History Observation Description Sex Assigned At Unknown PROBLEMS Problem Type ICD Code Onset Dates Problem Status W/U Status Risk SNOMED Code Notes Problem Hypertension (I10) Active confirmed 383 47176 Problem Tinnitus (H93.19) Active confirmed 6086 2000 Problem Family history of colon cancer (Z80.0) Active confirmed 992099476 Problem DJD (degenerative joint disease), lumbar (M47.816) Active confirmed 796283197 Problem Degenerative joint disease (M19.90) Active confirmed 928429565 Problem Lumbar foraminal stenosis (M99.83) Active confirmed 50741531 Problem Diabetic nephropathy (E11.21) Active confirmed 167115275 Problem Type 2 diabetes mellitus with other diabetic neurological complication (E11.49) Active confirmed 68412392 Problem Mixed dyslipidemia (E78.2) Active confirmed 931623570 Problem Bilateral sensorineural hearing loss (H90.3) Active confirmed 851035011 Problem Venous stasis dermatitis of left lower extremity (I87.2) Active confirmed 96341833 Encounters Encounter Location Date Provider Diagnosis [address] [place] [address] 07/21/2022 Lydia Adler PLAN OF TREATMENT No Information Insurance Providers Payer Name Payer Address Payer Phone Subscriber Number Group Number Insured Name Patient Relationship to Insured Coverage Start Date Coverage End Date [facility] [place] [address] [address] [place] [address] [id number] Raj Martinez Self - patient is the insured 0 MEDICAL (GENERAL) HISTORY Medical History History ICD Code Type 2 diabetes 08/26 Hypertension Dyslipidemia/increased triglycerides Undescended left testis, s/p orchipexy 1 968, orchidectomy 2006 Dactylocampis, congenital, b ilateral, s/p multiple left hand surgeries 1967, 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 canal stenosis, L4 nerve root, S1 nerve root compression 2007 in [place]. Similar findings 01/29. Patient to try to get images sent up Bilateral sensorineural hearing loss Right hip djd 10/02, referred to Ortho Surgical History Surgery Date(Month/Year) Varicose vein removal 1986 Laminectomy/discectomy L5-SI, secondary to ruptured disc 1989 Left orchiectomy 2006 Right forearm ORIF secondary to trauma 1 976 Left achilles tendon rupture 2006 Decompression of L5-S1 herniated disc right total hip replacement 11/30 squamous cell removal and 5 differnt bas al squamous cell removed Left orchipexy,inguinal hernia repair Multiple left hand surgeries for dactylo campis , ,
[2023-05-18 10:45] LABS: Albumin* 4.7 g/dL (3.3-5.0); Chloride* 99 mmol/L (96-114); Potassium* 4.3 mmol/L (3.6-5.1); Sodium* 136 mmol/L (135-149)
[2023-05-18 10:47] LABS: Creatinine* 0.8 mg/dL (0.5-1.5); Est. Creatinine Clearance* 77.39; Estimated Glomerular Filt Rate 98 ml/min
[2023-05-18 10:48] LABS: Alanine Aminotransferase* 23 U/L (4-50); Alkaline Phosphatase* 71 U/L (40-150); Anion Gap 11 mEq/L (7-15); Aspartate Amino Transferase* 45 U/L (12-35); Bilirubin Total* 0.9 mg/dL (0.1-1.5); Blood Urea Nitrogen* 16 mg/dL (7-30); Carbon Dioxide* 26 mmol/L (20-32); Glucose* 262 mg/dL (60-115); Lipase* 89 U/L (23-300); Total Protein* 7.1 g/dL (6.0-8.3)
[2023-05-18 11:00] LABS: Creatinine, Point-of-Care* 0.8 mg/dl (0.6-1.3)
[2023-05-18] MEDS: NITROGLYCERIN 0.4 MG TAB.SUBL SUBLINGUAL (11:05)
[2023-05-18 11:06] LABS: Troponin I* 0.49 ng/mL (0.01-0.04)
[2023-05-18] MEDS: ASPIRIN 81 MG TAB.CHEW 324 MG PO (11:06)
[2023-05-18 11:08] LABS: NT Pro B Type NatriureticPept* 63 pg/mL
[2023-05-18] MEDS: HEPARIN 5,000 UNIT/0.5 ML INJ 4000 UNIT IVP (11:09)
[2023-05-18] MEDS: HEPARIN 25,000 UNIT/500 ML BAG 20 UNIT IV (11:11)
[2023-05-18 11:19] LABS: Partial Thromboplastin Time* 32 Seconds (23-33)
[2023-05-18 12:00] LABS: INR 0.92 (0.91-1.10); Prothrombin Time 12.9 Seconds
[2023-05-18 12:21] LABS: Troponin, Point-of-Care* 0.99 ng/ml (0.01-0.04)
--- NOTE | 2023-05-18 12:31 | PC.NURSE ---
EKG completed. MD notified that pain in center of chest of 0.5/10. Does not recommend needing nitro at this time.
== END 2023-05-18 12:48 | disposition short-term general hospital (02) ==
PROVIDERS: Emergency Provider Student in an Organized Health Care Education/Training Program; PCP Family Medicine
DX: I21.4 Non-ST elevation (NSTEMI) myocardial infarction (principal)
CPT/HCPCS: 36415; 71045; 80053; 82565; 83690; 83880; 84484; 85025; 85027; 85610; 85730; 93005; 99284; 99291; A9270; J1644

== ENCOUNTER 2023-05-18 12:33 | Outpatient (CLI) | payer MEDICARE, BC, SELFPAY ==
--- OUTSIDE RECORDS SUMMARY | 2023-05-23 09:33 | XMS_ITS | Patient Health Record ---
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 Name Role Phone Lydia Adler Primary Care [...] 10+yrs IM Intramuscular 09/02/2021 Admini stered Pneumo-PPV23 ([id number]) 0 09/18/2010 Administered Historic - COVID, (Pfizer [...] Notes Problem Hypertension (I10) Active confirmed 383 72688 Problem Tinnitus (H93.19) Active confirmed 6086 2000 Problem Family history of colon cancer (Z80.0) Active confirmed 754491219 Problem DJD (degenerative joint disease), lumbar (M47.816) Active confirmed 729079135 Problem Degenerative joint disease (M19.90) Active confirmed 864719833 Problem Lumbar foraminal stenosis (M99.83) Active confirmed 56591688 Problem Diabetic nephropathy (E11.21) Active confirmed 018515626 Problem Type 2 diabetes mellitus with other diabetic neurological complication (E11.49) Active confirmed 48729316 Problem Mixed dyslipidemia (E78.2) Active confirmed 925139308 Problem Bilateral sensorineural hearing loss (H90.3) Active confirmed 443744073 Problem Venous stasis dermatitis of left lower extremity (I87.2) Active confirmed 35646644 Encounters Encounter Location Date Provider Diagnosis [address] [place] [address] 07/21/2022 Lydia Adler PLAN OF TREATMENT No Information Insurance Providers Payer Name Payer Address Payer Phone Subscriber Number Group Number Insured Name Patient Relationship to Insured Coverage Start Date Coverage End Date [facility] [address] [address] [place] [address] [id number] Raj Martinez Self - patient is the [...] s/p ORIF 1975 Left achilles tendon rupture 2005 Hx of MRSA Multiple level DJD lumbar sp ine, L3-4 disc herniation-mod. canal stenosis, L4 nerve root, S1 nerve root compression 2007 in [place]. Similar findings 01/29. 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
== END 2023-05-18 12:34 | disposition home or self-care (01) ==
LOC: AMB 05-23 09:31
PROVIDERS: PCP Family Medicine; Visit Provider Student in an Organized Health Care Education/Training Program
DX: R07.89 Other chest pain (principal)
CPT/HCPCS: A0425; A0427

== ENCOUNTER 2023-06-01 10:18 | Outpatient (CLI) | payer MEDICARE, BC, SELFPAY | END 2023-06-01 10:19 | disposition home or self-care (01) | PROVIDERS: PCP Family Medicine; Visit Provider Family Medicine | DX: I10 Essential (primary) hypertension (principal) | CPT/HCPCS: 80048 ==

== ENCOUNTER 2023-06-08 08:01 | Outpatient (CLI) | payer MEDICARE, BC, SELFPAY ==
--- OUTSIDE RECORDS SUMMARY | 2023-06-08 08:04 | XMS_ITS | Patient Health Record ---
Author Name Unknown Organization [facility] Address [address] [place] [address] Care Team Providers Care Director Of Outpatient Services Name Role Phone Lydia Adler Primary Care Provider [phone] ALLERGIES Allergen (clinical drug ingredient) Drug/Non Drug [...] 10+yrs IM Intramuscular 09/02/2021 Admini stered Pneumo-PPV23 ([id number]) 0 09/18/2010 Administered Historic - COVID, (Pfizer [...] Notes Problem Hypertension (I10) Active confirmed 383 41055 Problem Tinnitus (H93.19) Active confirmed 6086 2000 Problem Family history of colon cancer (Z80.0) Active confirmed 416167818 Problem DJD (degenerative joint disease), lumbar (M47.816) Active confirmed 669870758 Problem Degenerative joint disease (M19.90) Active confirmed 867690768 Problem Lumbar foraminal stenosis (M99.83) Active confirmed 50955672 Problem Diabetic nephropathy (E11.21) Active confirmed 322548580 Problem Type 2 diabetes mellitus with other diabetic neurological complication (E11.49) Active confirmed 63332816 Problem Mixed dyslipidemia (E78.2) Active confirmed 710090377 Problem Bilateral sensorineural hearing loss (H90.3) Active confirmed 014517891 Problem Venous stasis dermatitis of left lower extremity (I87.2) Active confirmed 16555368 Encounters Encounter Location Date Provider Diagnosis [address] [place] [address] 07/21/2022 Lydia Adler PLAN OF TREATMENT No Information Insurance Providers Payer Name Payer Address Payer Phone Subscriber Number Group Number Insured Name Patient Relationship to Insured Coverage Start Date Coverage End Date [facility] [address] [address] [place] [address] [id number] Raj Martinez Self - patient is the [...] root, S1 nerve root compression 2007 in [place]. Similar findings 01/29. Patient to try to [...]
--- NOTE | 2023-06-08 08:15 | CRLHL7_ITS ---
For Patients: As a result of the Century Cures Act, medical imaging exams and procedure reports are released immediately into your electronic medical record. You may view this report before your referring provider. If you have questions, please contact your health care provider. CLINICAL HISTORY: RT SIDED BRUIT TECHNIQUE: The carotid circulations and the vertebral arteries in the neck were examined with tsang-scale ultrasound, color-flow and Doppler spectral analysis. Degrees of stenosis were determined using SRU 2002 Consensus Panel Criteria. FINDINGS: Sonographic images demonstrate bilateral atherosclerotic plaque formation without suspicious soft tissue mass. There was antegrade blood flow demonstrated within the vertebral arteries and the subclavian arteries demonstrated a normal triphasic waveform. The spectral Doppler tracings of the common carotid, internal and external carotid arteries demonstrate no abnormal turbulence or spectral broadening. There was no significant elevation of peak systolic blood flow which would indicate a hemodynamically-significant stenosis by SRU criteria. The ICA/CCA peak systolic velocity ratio measures 1.3 on the right and 1.2 on the left. IMPRESSION: Less than 50 percent stenosis of the internal carotid arteries bilaterally. Dictated by Robert Yap MD @ 06/08/2023 11:01:58 AM (Electronically Signed)
== END 2023-06-08 08:02 | disposition home or self-care (01) ==
LOC: US 08:02
PROVIDERS: PCP Family Medicine; Visit Provider Family Medicine
DX: R09.89 Other specified symptoms and signs involving the circulatory and respiratory systems (principal); I65.23 Occlusion and stenosis of bilateral carotid arteries
CPT/HCPCS: 93880

== ENCOUNTER 2023-09-02 10:00 | Outpatient (RCR) | payer MEDICARE, BC, SELFPAY ==
--- NOTE | 2023-08-03 13:14 | PT.OPEX ---
PT [place] Outpatient Eval PT [facility] Outpatient Eval Start: 07/20/23 07:53 Freq: Status: Active Protocol: Document 07/20/23 10:05 HN (Rec: 07/20/23 11:35 HN [id number]) E-signed By Elma Marquez DPT Physical Therapy Outpatient Evaluation Insurance Information Recert Due Date 10/17/23 Insurance Name Medicare B,[employer] Insurance Information/Comments Medicare/Blue cross Medical Diagnosis M16. 12: Unilateral primary osteoarthritis, left hip. Treating Diagnosis M16. 12: Unilateral primary osteoarthritis, left hip. M25.652 stiffness in left hip Referring MD Yaron Fong MD Subjective Subjective Patient is a 68 year old male with left hip pain with chronic nature, worsening in last 6 months with insidious onset. Looking to get L DAVID however unable to be cleared for surgery due to recent TX and plavix. Pain characteristics: R groin pain, constant ache fluctuating severity Aggravating factors: difficulty walking, standing, prolonged sitting, then going to stand up, putting sock, stairs, outdoor ambulation inclines/declines Easing Factors: Tylenol PM, traction Prior level of function: chronic nature with recent exacerbation in past 6 months Current limitations: difficulty walking, standing, prolonged sitting, then going to stand up, putting sock, stairs, outdoor ambulation inclines/declines Red flags: endorses hx of skin cancer otherwise denies recent infection, numbness/ tingling , bowel/bladder changes Imaging: [place] grade 2 left hip osteoarthritis PMH: TX and subsequent double bypass and stent on 05/21/2023, HTN , CAD, DM II, diabetic polyneuropathy, HLD, squamous cell carcinoma, basal cell carcinoma , R hip replacement 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, enjoys bicycling with , enjoys walking/ fishing, tinkering in garage, done with cardiac rehab in August Pain Comments Current: 1-2 Best: 0/10 Worst: 5-6 Current Work Status Retired Preferred Name Raj Aguilar Treatment Precautions/Contraindications PMH: TX and subsequent double bypass and stent on 05/21/2023, HTN , CAD, DM II, diabetic polyneuropathy, HLD, squamous cell carcinoma, basal cell carcinoma , R hip replacement Weight Bearing Status Full Weight Bearing Therapy Limitations/Systems Review Not Limited Objective Other/Pertinent Objective Lumbar range of motion (% full range of motion) Flexion: 60% Extension: 15 % Left sidebendin% Right sidebendin% Left rotation: 75% Right rotation: 75% Hip range of motion (degrees): Flexion: 100 R / 80 L with increased pain External rotation: 40 R/ 15 L with increased pain Internal rotation: 24 R / 8 L with increased pain Manual muscle testing: Hip flexion: 3+/5 L increased pain , 5/5 R Hip abduction (Seated) : 3+/5 L , 5/5 R Hip adduction: (seated_ 3+/5 L , 5/5 R Hip extension: 3+/5 can do partial bridge Knee extension: 5/5 L , 5/5 R Knee flexion: 5/5 L , 5/5 R Ankle DF: 3/5 L , 5/5 R Ankle PF: 3+/5 (tested in seated) Special tests: GEGE: + on L FADIR: + on L SCOUR: + on L Assessment Assessment/Impression Patient is a 68 year old with complaints of chronic left hip . Patient demonstrates impaired left hip range of motion, decreased strength, increased pain consistent with left hip osteoarthritis. The impairments impact the patients prolonged standing, walking indoors and outdoors, standing after prolonged sitting, and participation in ADLs and IADLs. Patient will benefit from skilled physical therapy to address the impairments and activity limitations listed above. Prognostic factors include chronic nature of symptoms, increased number of comorbidities, and previous success with PT. Primary Functional Limitations prolonged standing, walking indoors and outdoors, standing after prolonged sitting, and participation in ADLs and IADLs. Plan of Care Rehabilitation Potential Fair Physical Therapy Goals skilled nursing goals 10/12/23 1. Patient will demonstrate LEFS of 40/80 or greater to demonstrate decrease pain and disability related to symptoms . 2. Patient will demonstrate L hip range of motion of 90 degrees or greater in order to improve tolerance with sitting. 3. Patient will demonstrate independence with home exercise program in order to self manage condition 4. Patient will report <5/10 pain at worst in order to demonstrate decreased pain and disability related to symptoms. 5. Patient will demosntrate MMT of 5/5 in hip and LE in order to demonstrate improved tolerance with lifting, carrying groceries. Coordination/Communication With Referral Source Treatment Plan/Direct Interventions Electrical Stimulation,Gait Training,Joint Mobilization, Manual Therapy,Neuromuscular Re-ed,Self-Care/Home Management,Therapeutic Activities,Therapeutic Exercises Frequency/Duration 1x/week for 10-12 weeks Patient Will Be Discharged From Therapy Completion of LTG(s),Skills Plateau,Independent w/HEP Evaluation Billing Untimed Code Treatment Minutes 20 Complexity Low Certification Information Initial Certification Date 07/20/23 Ending Certification Date 10/17/23 Provider Signature Shows Agreement With POC & Medical Necessity Physician Signature & Date Requested Please Sign/Date Here Physician Comment/Change : Physician NPI Number #
== END 2023-10-28 14:06 | disposition home or self-care (01) ==
PROVIDERS: PCP Family Medicine; Visit Provider Orthopaedic Surgery
DX: M16.12 Unilateral primary osteoarthritis, left hip (principal); M25.652 Stiffness of left hip, not elsewhere classified; Z51.89 Encounter for other specified aftercare
CPT/HCPCS: 80053; 80061; 82043; 82570; 84153; 97110; 97140; 97161

== ENCOUNTER 2024-01-13 07:30 | Outpatient (CLI) | payer MEDICARE, BC, SELFPAY ==
--- OUTSIDE RECORDS SUMMARY | 2024-01-17 20:37 | XMS_ITS | Clinical Summary ---
Author Organization [facility] Address [place], [place] [address] Care Team Providers Care Regasification Plant Operator Name Role Phone Criss Elias MD Primary Care Provider + Allergies Active Allergy Reactions Criticality Noted Date Comments Clindamycin Diarrhea 09/08/2022 Cortisone Hives 09/01/2007 One incidence. Has had cortisone since with no problem Metformin Diarrhea,GI Upset 09/08/2022 Simvastatin Myalgia 09/08/2022 Medications Medication Sig Dispensed Refills Start Date End Date Status amoxicillin (AMOXIL) 500 mg capsule Take 2,000 mg by mouth each time if needed (prior to dental procedures). Active niacinamide 500 mg tablet Take 500 mg by mouth once daily. Active MULTIVITAMIN ORAL Take 1 Tablet by mouth once daily. Active diphenhydrAMINE-ac etaminophen 25-500 mg (Tylenol PM Extra Strength) 25-500 mg tablet Take 2 Tablets by mouth at bedtime. Max acetaminophen dose: 4000mg in 24 hrs. Active aspirin chewable 81 mg chewable tabletIndications: NSTEMI (non-ST elevated myocardial infarction) (HC),S/P CABG x 2 Chew 1 Tablet (81 mg) by mouth once daily with a meal. 90 Tablet 3 05/27/2023 Active acetaminophen (TYLENOL EXTRA STRGTH) 500 mg tabletIndications: S/P CABG x 2 Take 2 Tablets (1,000 mg) by mouth every 6 hours if needed for Pain. Max acetaminophen dose: 4000mg in 24 hrs. 120 Tablet 05/27/2023 Active glipiZIDE (GLUCOTROL) 10 mg tabletIndications: Type 2 diabetes mellitus with other diabetic neurological complication (HC) Take 1 Tablet (10 mg) by mouth two times daily before meals. 0 05/28/2023 Active Trulicity 1.5 mg/0.5 mL subcutaneous penIndications:Typ e 2 diabetes mellitus with other diabetic neurological complication (HC) Inject 1.5 mg subcutaneous once weekly. 2 mL 05/28/2023 Active amLODIPine (NORVASC) 2.5 mg tabletIndications: NSTEMI (non-ST elevated myocardial infarction) (HC),S/P CABG x 2 Take 1 Tablet (2.5 mg) by mouth once daily. 90 Tablet 3 07/09/2023 Active clopidogreL (PLAVIX) 75 mg tabletIndications: NSTEMI (non-ST elevated myocardial infarction) (HC),S/P CABG x 2 Take 1 Tablet (75 mg) by mouth every morning. Continue taking daily for 1 year (until May 2024). 90 Tablet 3 07/09/2023 Active nebivoloL (BYSTOLIC) 5 mg tab tabletIndications: S/P CABG x 2 Take 1 Tablet (5 mg) by mouth once daily. 90 Tablet 3 07/09/2023 Active nitroglycerin (NITROSTAT) 0.4 mg sublingual tabletIndications: NSTEMI (non-ST elevated myocardial infarction) (HC),S/P CABG x [address] 1 Tablet (0.4 mg) under the tongue every 5 minutes if needed for Chest pain 1st choice (Hold if SBP less than 90 mmHg). 25 Tablet 2 07/09/2023 Active rosuvastatin (CRESTOR) 20 mg tabletIndications: NSTEMI (non-ST elevated myocardial infarction) (HC),S/P CABG x 2 Take 1 Tablet (20 mg) by mouth at bedtime. 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 05/18/2023 Immunizations Name Administration Dates Next Due Influenza, Inactivated AIIV4 (Age 65+ Years) Preserv Free 05/25/2023(Deferred: - patient prefers to get from primary provider) Td (Age >=7 Years) 05/27/1999 Social History Tobacco Use Types Packs/Day Years Used Date Smoking Tobacco: Former Cigarettes 1 - 08/16/1987 Cigars Smokeless Tobacco: Never Tobacco Cessation:Counseling Given: Not Answered Comments:Occasional cigar Alcohol Use Standard Drinks/Week Comments Not Asked 0 (1 standard drink = 0.6 oz pur e alcohol) PHQ-2 Answer Date Recorded PHQ-2 TOTAL SCORE 0 08/26/2023 Social Connections Answer Date Recorded Frequency of Communication with Friends and Fami ly 0 05/18/2023 Financial Resource Strain Answer Date R ecorded Difficulty of Paying Living Expenses 3 05/18/2023 Difficulty of Paying Living Expenses Not on file 05/18/2023 Food Insecurity Answer Date Recorded Worried About Running Out of Food in the Last Ye ar 1 05/18/2023 Transportation Needs Answer Date Record ed Lack of Transportation (Medical) 1 05/18/2023 Housing Stability Answer Date Recorded Unable to Pay for Housing in the Last Year 1 05/18/2023 Sex and Gender Information Value Date Recorded Sex Assigned at Male 07/08/2023 9:42 AM GRAIN UNLOADER Gender Identity Male 07/08/2023 9:42 AM GRAIN UNLOADER Sexual Orientation Straight 07/08/2023 9: 42 AM GRAIN UNLOADER Obstetrics History Last Filed Vital Signs Vital Sign Reading Time Taken Comments Blood Pressure 143/77 07/09/2023 1:11 PM GRAIN UNLOADER Pulse 69 07/09/2023 1:11 PM GRAIN UNLOADER Temperature 36.9 ??C (98.4 ??F) 05/27/2023 8:45 AM CD T Respiratory Rate 18 06/03/2023 2:00 PM CDT Oxygen Saturation 100% 07/09/2023 1:11 PM GRAIN UNLOADER Inhaled Oxygen Concentration - - Weight 99.4 kg (219 lb 3.2 oz) 07/09/2023 1:11 P M GRAIN UNLOADER Height 180.3 cm (5' 11) 06/03/2023 2:00 PM CDT Body Mass Index 30.57 06/03/2023 2:00 PM CDT Plan of Treatment Health Maintenance Due Date Last Done Comments Pneumococcal series for age 65+ (1 of 2 - PCV) 1963 Tdap 02/22/1968 BMI (ht and wt on same day) for age 18+ 1975 Hepatitis C screening for age 18-79 1975 Colonoscopy through age 75 2002 Zoster (shingles) series for age 50+ (1 of 2) 2007 Tetanus booster 05/27/2009 05/27/1999 AAA screening age 65-74 2022 Medicare Wellness for age 65+ 2022 COVID-19 vaccine series (2022- season) 2023 09/02/2021, 09/17/2020, 08/27/2020 Influenza for age 65+ 04/16/2024 Depression screening for age 12+ 08/25/2024 08/25/2023, 06/07/2023, 06/03/2023 Lipids for age 45-75 05/19/2028 05/19/2023 Procedures Procedure Name Priority Date/Time Associated Diagnosis Comments LIPID PANEL Early AM 05/19/2023 10:25 AM CDT from Last 3 Months or Most Recently Relevant to Health Maintenance Results * (ABNORMAL) Lipid Panel - In AM (05/19/2023 10:25 AM CDT) CHOLESTEROL,TOTAL 190 100 - 199 mg/dL 05/19/2023 11:12 AM CDT [email or web address] Comment: Cholesterol, Total Reference Ranges Desirable <200 mg/dL Borderline 200-239 mg/dL High >=240 mg/dL TRIGLYCERIDES 300(H) <150 mg/dL 05/19/2023 11:12 AM CDT [email or web address] HDL CHOLESTEROL 44 >40 mg/dL 11:12 AM CDT [facility] [employer] [facility] NON-HDL CHOLESTEROL 146(H) <145 mg/dl 05/19/2023 11:12 AM CDT [email or web address] CHOL/HDL RATIO 4.32 <4.50 05/19/2023 11:12 AM CDT [facility] [employer] [facility] LDL CHOLESTEROL 86 <=130 mg/dL 05/19/2023 11:12 AM CDT [email or web address] VLDL CHOLESTEROL 60(H) <=30 mg/dL 05/19/2023 11:12 AM CDT [facility] [employer] [facility] PROVIDER ORDERED STATUS RANDOM 05/19/2023 11:12 AM CDT [facility] Blood BLOOD SPECIMEN / Unknown Non-Lab Venipuncture / Unknown 05/19/2023 10:25 AM CDT 05/19/2023 10:33 AM CDT Andrews Solares MD CHEMISTRY [facility] [address] [place] [id number], from Last 3 Months or Most Recently Relevant to Health Maintenance Advance Directives * Full Code (Latest Code Status on File) Date Activated Date Inactivated Comments 05/18/2023 3:36 PM 05/27/2023 3:44 PM Question Answer Comments Code Status Discussion: Reviewed Preferences Care Teams Regasification Plant Operator Relationship Specialty Start Date End Date Criss Elias MD [address] [place] [address] PCP - General Family Practice 04/29/23
== END 2024-01-13 07:31 | disposition home or self-care (01) ==
LOC: NFLDREF 01-17 20:36
PROVIDERS: PCP Family Medicine; Referring Provider Family Medicine; Visit Provider Family Medicine
DX: E78.5 Hyperlipidemia, unspecified (principal); I10 Essential (primary) hypertension; E11.9 Type 2 diabetes mellitus without complications
CPT/HCPCS: 80053; 80061; 82043; 82570

== ENCOUNTER 2024-02-09 08:00 | Outpatient (RCR) | payer MEDICARE, BC, SELFPAY ==
--- NOTE | 2024-02-09 09:07 | PT.OPEX ---
PT [place] Outpatient Eval PT [facility] Outpatient Eval Start: 02/09/24 08:11 Freq: Status: Active Protocol: Document 02/09/24 08:11 CRP (Rec: 02/09/24 09:06 CRP [id number]) E-signed By Brent Araujo PT Physical Therapy Outpatient Evaluation Insurance Information Recert Due Date 02/28/24 Insurance Name Medicare B Medical Diagnosis Pre-op L DAVID Referring MD Dr Fong Subjective Subjective Has had more than a year of L hip issues. Last Fall he was planning on having surgery but then May he had a heart attack. Double bypass with stent put in. He has now finally had the clearance to do the hip replacement. Is still walking daily about 50 minutes and bikes once per day with ebike. 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 Sleeping is getting more and more difficult. Cannot sleep on the right side. Soreness noted in the morning. Is using a single end cane 100% of the time. His set to have L DAVID February 28. Today he is here for preop appointment. Pt has had past R DAVID. Pain Comments -05/25 Current Work Status Retired Objective Other/Pertinent Objective Hip ROM L flex 85 deg, Ext lacks 15 deg, abd L 12 deg. MMT: Quad set - good. No hip testing completed secondary to pain Gait: Amb with SEC. Shows decreased hip ext ROM during R swing through. Shows decreased wt bearing tolerance on L with glute med gait pattern. Assessment Assessment/Impression Pt presents to the clinic for a pre-op L DAVID appointment. Pt shows significant loss of L hip ROM, significant pain and weakness of the L hip and difficulty with gait/general functional mobility. Pt showed good understanding of his pre-op exer. Pt will work on these independently and return to PT following his surgery. 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 Coordination/Communication With Referral Source Treatment Plan/Direct Interventions Self-Care/Home Management, Therapeutic Exercises Frequency/Duration 1-2 visits pre-op Patient Will Be Discharged From Therapy Independent w/HEP Evaluation Billing Untimed Code Treatment Minutes 25 Complexity Low Certification Information Initial Certification Date 02/09/24 Ending Certification Date 02/28/24 Provider Signature Required Yes Provider Signature Shows Agreement With POC & Medical Necessity Physician NPI Number Write NPI# Here Physician Comment/Change : Physician Signature & Date Requested Please Sign/Date Here
== END 2024-06-08 23:59 | disposition home or self-care (01) ==
PROVIDERS: PCP Family Medicine; Visit Provider Orthopaedic Surgery
DX: M16.12 Unilateral primary osteoarthritis, left hip (principal); Z96.642 Presence of left artificial hip joint; Z51.89 Encounter for other specified aftercare
CPT/HCPCS: 97161

== ENCOUNTER 2024-07-11 07:50 | Outpatient (CLI) | payer MEDICARE, BC, SELFPAY | END 2024-07-11 07:51 | disposition home or self-care (01) | LOC: NFLDREF 07-13 05:07 | PROVIDERS: PCP Family Medicine; Referring Provider Family Medicine; Visit Provider Family Medicine | DX: R80.9 Proteinuria, unspecified (principal); I10 Essential (primary) hypertension; E11.40 Type 2 diabetes mellitus with diabetic neuropathy, unspecified; E78.5 Hyperlipidemia, unspecified; Z12.5 Encounter for screening for malignant neoplasm of prostate | CPT/HCPCS: 80053; 80061; 82043; 82570; G0103 ==

== ENCOUNTER 2024-07-25 07:31 | Day surgery (SDC) | payer MEDICARE, BC, SELFPAY ==
[2024-07-25] VITALS (23 sets, daily range): BP systolic 111–147; BP diastolic 60–88; PULSE 67–83; RESP 12–18; TEMP 35.8–36.8; O2SAT 93–98; BMI 32.7
--- OUTSIDE RECORDS SUMMARY | 2024-07-25 07:35 | XMS_ITS | Clinical Summary ---
Author Organization [facility] Address [place], [place] [address] Care Team Providers Care Developmental Therapist Name Role Phone Criss Elias MD Primary Care Provider + Allergies Active Allergy Reactions Criticality Noted Date Comments Clindamycin Diarrhea 09/08/2022 Cortisone Hives 09/01/2007 One incidence. Has had cortisone since with no problem Metformin Diarrhea,GI Upset 09/08/2022 Simvastatin Myalgia 09/08/2022 Medications amoxicillin (AMOXIL) 500 mg capsule Take 2,000 mg by mouth each time if needed (prior to dental procedures). Active niacinamide 500 mg tablet Take 500 mg by mouth once daily. Active MULTIVITAMIN ORAL Take 1 Tablet by mouth once daily. Active diphenhydrAMINE -acetaminophen 25-500 mg (Tylenol PM Extra Strength) 25-500 mg tablet Take 2 Tablets by mouth at bedtime. Max acetaminophen dose: 4000mg in 24 hrs. Active aspirin chewable 81 mg chewable tabletIndicatio ns:NSTEMI (non-ST elevated myocardial infarction) (HC),S/P CABG x 2 Chew 1 Tablet (81 mg) by mouth once daily with a meal. 90 Tablet 3 3 10:31 AM CDT 023 Active acetaminophen (TYLENOL EXTRA STRGTH) 500 mg tabletIndicatio ns:S/P CABG x 2 Take 2 Tablets (1,000 mg) by mouth every 6 hours if needed for Pain. Max acetaminophen dose: 4000mg in 24 hrs. 120 Tablet 3 10:31 AM CDT 023 Active glipiZIDE (GLUCOTROL) 10 mg tabletIndicatio ns:Type 2 diabetes mellitus with other diabetic neurological complication (HC) Take 1 Tablet (10 mg) by mouth two times daily before meals. 0 023 Active Trulicity 1.5 mg/0.5 mL subcutaneous penIndications: Type 2 diabetes mellitus with other diabetic neurological complication (HC) Inject 1.5 mg subcutaneous once weekly. 2 mL 023 Active amLODIPine (NORVASC) 2.5 mg tabletIndicatio ns:NSTEMI (non-ST elevated myocardial infarction) (HC),S/P CABG x 2 Take 1 Tablet (2.5 mg) by mouth once daily. 90 Tablet 3 023 Active clopidogreL (PLAVIX) 75 mg tabletIndicatio ns:NSTEMI (non-ST elevated myocardial infarction) (HC),S/P CABG x 2 Take 1 Tablet (75 mg) by mouth every morning. Continue taking daily for 1 year (until May 2024). 90 Tablet 3 023 Active nitroglycerin (NITROSTAT) 0.4 mg sublingual tabletIndicatio ns:NSTEMI (non-ST elevated myocardial infarction) (HC),S/P CABG x [address] 1 Tablet (0.4 mg) under the tongue every 5 minutes if needed for Chest pain 1st choice (Hold if SBP less than 90 mmHg). 25 Tablet 2 023 Active nebivoloL (BYSTOLIC) 5 mg tab tabletIndicatio ns:S/P CABG x 2 TAKE 1 TABLET(5 MG) BY MOUTH EVERY DAY 90 Tablet 3 024 Active rosuvastatin (CRESTOR) 20 mg tabletIndicatio ns:NSTEMI (non-ST elevated myocardial infarction) (HC),S/P CABG x 2 TAKE 1 TABLET(20 MG) BY MOUTH AT BEDTIME 90 Tablet 3 024 Active rosuvastatin (CRESTOR) 20 mg tabletIndicatio ns:NSTEMI (non-ST elevated myocardial infarction) (HC),S/P CABG x 2 Take 1 Tablet (20 mg) by mouth at bedtime. 90 Tablet 3 023 2023 Discontinued Active Problems Problem Noted Date Diagnosed Date NSTEMI (non-ST elevated myocardial infarction) 1 Hypertension 05/18/2023 Mixed dyslipidemia 05/18/2023 Type 2 diabetes mellitus wit h other diabetic neurological complication 05/18/2023 Encounters Date Type Department Care Team Description 07/02/2024 Refill [facility] [address] [facility] [address] [place] [phone] Abraham Rivera MD Refill Request (Rosuvastatin) from Last 3 Months Immunizations Name Administration Dates Next Due Influenza, [...] Sex Assigned at Male 07/08/2023 9:42 AM BRICK CLEANER Legal Sex Male 6:20 AM BRICK CLEANER Gender Identity Male 07/08/2023 9:42 AM BRICK CLEANER Sexual Orientation Straight 07/08/2023 9: 42 AM BRICK CLEANER Obstetrics History Last Filed Vital Signs Vital Sign Reading Time Taken Comments Blood Pressure 143/77 07/09/2023 1:11 PM BRICK CLEANER Pulse 69 07/09/2023 1:11 PM BRICK CLEANER Temperature 36.9 C (98.4 F) 05/27/2023 8:45 AM CDT Respiratory Rate 18 06/03/2023 2:00 PM CDT Oxygen Saturation 100% 07/09/2023 1:11 PM BRICK CLEANER Inhaled Oxygen Concentration - - Weight 99.4 kg (219 lb 3.2 oz) 07/09/2023 1:11 P M BRICK CLEANER Height 180.3 cm (5' 11) 06/03/2023 2:00 PM CDT Body Mass Index 30.57 06/03/2023 2:00 PM CDT Plan of Treatment Health Maintenance Due Date Last Done Comments Pneumococcal series for age 65+ (1 of 2 - PCV) 1963 Tdap 02/22/1968 BMI (ht and wt on same day) for age 18+ 1975 Hepatitis C screening for ag e 18-79 1975 Colonoscopy through age 75 2002 Zoster (shingles) series for age 50+ (1 of 2) 2007 Tetanus booster 05/27/2009 05/27/1999 RSV vaccine for adults or (1 - Risk 60-74 years 1-dose series) 2017 Medicare Wellness for age 65+ 2022 COVID-19 vaccine series ( season) 2024 09/17/2020, 08/27/2020 Influenza for age 65+ 04/16/2024 Depression screening for age 12+ 08/26/2024 08/26/2023, 08/25/2023, 06/07/2023, Additional history exists Lipids for age 45-75 05/19/2028 05/19/2023 Procedures Procedure Name Priority Date/Time Associated Diagnosis Comments LIPID PANEL Early AM 05/19/2023 10:25 AM CDT from Last 3 Months or Most Recently Relevant to Health Maintenance Results * (ABNORMAL) Lipid Panel - In AM (05/19/2023 10:25 AM CDT) CHOLESTEROL,TOTAL 190 100 - 199 mg/dL 05/19/2023 11:12 AM CDT [facility] Comment: Cholesterol, Total Reference Ranges Desirable <200 mg/dL Borderline 200-239 mg/dL High >=240 mg/dL TRIGLYCERIDES 300(H) <150 mg/dL 05/19/2023 11:12 AM CDT [facility] HDL CHOLESTEROL 44 >40 mg/dL 11:12 AM CDT [facility] NON-HDL CHOLESTEROL 146(H) <145 mg/dl 05/19/2023 11:12 AM CDT [facility] CHOL/HDL RATIO 4.32 <4.50 05/19/2023 11:12 AM CDT [facility] LDL CHOLESTEROL 86 <=130 mg/dL 05/19/2023 11:12 AM CDT [facility] VLDL CHOLESTEROL 60(H) <=30 mg/dL 05/19/2023 11:12 AM CDT [facility] PROVIDER ORDERED STATUS RANDOM 05/19/2023 11:12 AM T [facility] Blood BLOOD SPECIMEN / Unknown Non-Lab Venipuncture / Unknown 05/19/2023 10:25 AM CDT 05/19/2023 10:33 AM CDT Andrews Solares MD CHEMISTRY Final Res ult [facility] [address] [place] [address], [place] from Last 3 Months or Most Recently Relevant to Health Maintenance Insurance [facility] MEDICARE [place] ONLY MEDICARE PART B [place] ONLY MEDICARE PART A [place] ONLY Advance Directives * Full Code (Latest Code Status on File) Date Activated Date Inactivated Comments 05/18/2023 3:36 PM 05/27/2023 3:44 PM Question Answer Comments Code Status Discussion: Reviewed Preferences Care Teams Developmental Therapist Relationship Specialty Start Date End Date Criss Elias MD [address] [place] [id number] PCP - General Family Practice 04/29/23
[2024-07-25] MEDS: ACETAMINOPHEN 500 MG TABLET 1000 MG PO ×2 (07:40→17:46)
--- NOTE | 2024-07-25 09:45 | CRLHL7_ITS ---
For Patients: As a result of the Cures Act, medical imaging exams and procedure reports are released immediately into your electronic medical record. You may view this report before your referring provider. If you have questions, please contact your health care provider. Indication: Hip replacement surgery Technique: AP hip fluoroscopic image. Fluoroscopy time 63.4 seconds. Findings/Impression: Hardware from a left total hip arthroplasty is in satisfactory position. Dictated by Robert Yap MD @ 07/25/2024 12:23:26 PM (Electronically Signed)
[2024-07-25] MEDS: CELECOXIB 200 MG CAPSULE PO (09:48)
[2024-07-25] MEDS: LACTATED RINGERS 1000 ML 1,000 ML 100 ML IV (09:48)
[2024-07-25] MEDS: SODIUM CHLORIDE 0.9 % (FLUSH) 10 ML SYRINGE IVF (09:48)
[2024-07-25] MEDS: OXYCODONE (CR) 10 MG TAB.ER.12H PO (09:48)
[2024-07-25] MEDS: fentaNYL 100 MCG/2 ML inj IVP (10:00)
[2024-07-25] MEDS: MIDAZOLAM HCL 1 MG/ML inj IVP (10:00)
--- NOTE | 2024-07-25 10:01 | SUR.PREOP ---
TIME?OUT:?1000 PT/RN/MDA?VERIFICATION?OF?SURGICAL?SITE,?PROCEDURE,?AND?CONSENT OBTAINED?PRIOR?TO?INVASIVE?PROCEDURE. all in agreement.
[2024-07-25] MEDS: CEFAZOLIN 2 GM INJ IVP (10:40)
[2024-07-25] MEDS: TRANEXAMIC ACID 100 MG/ML INJ 1000 MG IV (10:44)
--- NOTE | 2024-07-25 10:52 | W.PM.NB ---
Nerve Block Nerve Block Time Seen by Provider: 10:05 Date Seen: 07/25/24 Type of block requested by surgeon for post-operative analgesia: TUAN/LFCN Side: left Time out performed: Yes Verification of patient name: Yes Verification of date of : Yes Site marking: site marked Name of person performing procedure: Joshua Continuous monitoring Was continuous monitoring of O2 sat, B/P, health education assistant, recorded every 15 minutes?: Yes Procedure Checklist: sterile prep, needles and gloves Ultrasound guided. Images saved: Yes Medications given in 5ml increments after negative aspiration: Ropivicaine %: 0.5 mL: 30 Needle gauge: 20 Precedex (mcg): 25 Patient tolerated procedure well: Yes Additional comments: Needle noted below psoas tendon needle noted adjacent to LFCN Block Charges Block Charge (with Pro Fee): Other Periph Nerve Block Use of Ultrasound Machine for Block: Yes- US Guidance/pain block
--- NOTE | 2024-07-25 10:52 | W.ANESCHARGE ---
Anesthesia Charges Start Date/Time Anesthesia Start Date: 07/25/24 Anesthesia Start Time: 10:28 Stop Date/Time Anesthesia Stop Date: 07/25/24 Anesthesia Stop Time: 13:05
--- NOTE | 2024-07-25 12:12 | CRLHL7_ITS ---
For Patients: As a result of the Cures Act, medical imaging exams and procedure reports are released immediately into your electronic medical record. You may view this report before your referring provider. If you have questions, please contact your health care provider. INDICATION: Postop DAVID. TECHNIQUE: AP pelvis and lateral left hip. FINDINGS: Left DAVID. Components appear well seated. Adjacent postop soft tissue air. Also noted is a right DAVID. Dictated by Tim Medina MD @ 07/26/2024 8:24:13 AM (Electronically Signed)
--- NOTE | 2024-07-25 12:14 | P.ORPRC_ITS ---
Procedure Note Date of procedure: 07/25/24 Procedure: PREOPERATIVE DIAGNOSIS: Left hip osteoarthritis POSTOPERATIVE DIAGNOSIS: Left hip osteoarthritis NAME OF OPERATION: Left total hip arthroplasty SURGEON: Yaron Fong MD MAINTENANCE MACHINE REPAIRER: Faby Montoya PA-C, REA Mccl[place] IMPLANTS: 1. [employer] # 56 sector ingrowth cup 2. 36 x 56 +4 neutral polyethylene 3. Actis # 6 high offset collared ingrowth stem 4. 36 + 8.5 ceramic femoral head ANESTHESIA: General ESTIMATED BLOOD LOSS: 300 cc COMPLICATIONS: None SPECIMENS: None DRAINS: None PREOPERATIVE ANTIBIOTICS: Ancef 2 grams INDICATIONS: The patient is a 69-year-old with a longstanding history of severe, unrelenting left hip pain secondary to end-stage left hip osteoarthritis. Despite appropriate nonoperative management, including activity modification, use of an assist device, anti-inflammatories, [id number] pain medication, physical therapy and injections, they continue to have pain and disability. Operative intervention was offered. The risks, benefits and expected outcomes were discussed in detail. These included but were not limited to: Infection, bleeding, injury to blood vessel or nerve, venous thromboembolism. All questions were answered to their satisfaction. Use of an hospital administrative assistant was necessary throughout the case for patient positioning and safety, soft tissue retraction and closure. PROCEDURE: The patient was placed supine on the [place] table. General anesthesia was administered. The hospital administrative assistant made sure the patient was properly positioned. The left hip was prepped and draped in the usual sterile fashion. The image intensifier was brought in for a perfect AP pelvis and a perfect double tear drop AP view of each hip which were used for intraoperative templating with our fluoroscopic guide. An oblique incision was made 3 cm distal and 3 cm lateral to the anterior superior iliac spine. The hospital administrative assistant retracted the soft tissues to protect them. Subcutaneous dissection was taken with electrocautery to the superficial fascia. The fascia was divided in line with the incision. Blunt dissection was carried medially to the tensor fascia marylou and sartorius interval. Deep dissection was carried with electrocautery. The circumflex vessels were cauterized and divided. The capsule was exposed and then divided in a T- fashion, tagged with #1 Ethibond sutures. Retractors were placed in the joint, held by the hospital administrative assistant. The corkscrew was placed in the femoral head. The neck cut was made in the subcapital region. We made a second neck cut more distal. The napkin ring of bone was removed. The femoral head was removed intact. Acetabular retractors were placed, held by the hospital administrative assistant. The labrum was sharply debrided. The capsule was released. The 43 mm reamer was used to the true medial wall. We then enlarged in 2 mm increments using the image intensifier for our reamer placement. We impacted the cup which had excellent purchase. We placed the polyethylene. Attention was then turned to the proximal femur. The limb was placed in 140 degrees of external rotation, maximum extension and adduction. A significant amount of time was spent releasing the capsule to allow us to deliver the femur into the wound and complete the femoral side safely. Retractors were held by the hospital administrative assistant throughout the femoral preparation. The box toe cementer and canal finder were used. Broaches were used to a stable size. The calcar reamer was u sed. Trial components were placed. The hip was reduced and was found to be stable with appropriate soft tissue tension. Length and offset had been nicely restored using the image intensifier and our fluoroscopic guide. Trial components were removed. The stem was impacted. We placed the femoral head. Again, the hip was reduced and was found to be stable with appropriate soft tissue tension. Length and offset had been nicely restored. The hospital administrative assistant did a three minute dilute Betadine solution soak. The hospital administrative assistant irrigated the wound with 3 liters of normal saline via pulse lavage. The hospital administrative assistant repaired the anterior capsule with a #1 Vicryl and our previously placed Ethibond sutures. The hospital administrative assistant closed the fascia over the tensor fascia marylou with a #1 PDO Stratafix, subcutaneous tissues with 2-0 Vicryl, skin with a running 3-0 Stratafix and glue. A dry dressing was applied by the hospital administrative assistant. Sponge and needle counts were correct x 2. The patient tolerated the procedure well; there were no apparent complications. They were awakened and extubated in the operating room, sent to the Post-Anesthesia Care Unit in satisfactory condition. PLAN: 1. The patient will be mobilized with physical therapy, weight-bearing as tolerates 2. Xarelto x 5 days then aspirin x 30 days will be used for DVT prophylaxis 3. The patient will be discharged once medically appropriate
--- NOTE | 2024-07-25 13:05 | W.ANESCHARGE ---
Anesthesia Charges Start Date/Time Anesthesia Start Date: 07/25/24 Anesthesia Start Time: 10:28 Stop Date/Time Anesthesia Stop Date: 07/25/24 Anesthesia Stop Time: 13:05
[2024-07-25] MEDS: LACTATED RINGERS 500 ML 500 ML 100 ML IV (13:20)
[2024-07-25] MEDS: fentaNYL 100 MCG/2 ML inj 50 MCG IVP ×2 (13:28→13:35)
[2024-07-25] MEDS: HYDROmorphone 0.5 mg/0.5 ml inj IVP (14:28)
[2024-07-25] MEDS: OXYCODONE 5 MG TABLET PO ×2 (15:46→22:01)
[2024-07-25] MEDS: CEFAZOLIN 2 GM in 0.9 % SODIUM CHLORIDE Mini-bag 100 ML IVPB (16:57)
[2024-07-25] MEDS: LACTATED RINGERS 1000 ML 1,000 ML 75 ML IV (16:58)
--- NOTE | 2024-07-25 17:19 | P.IMCN_ITS ---
Date of Consult Patient: [facility] Patient Consult date: 07/25/24 Primary Care Provider: Criss Elias MD Consult Narrative Reason for consult: Medical management Narrative: Raj Martinez is a 69 year old male past medical history significant for type 2 diabetes mellitus, hypertension, dyslipidemia, CAD, NSTEMI 2022, s/p CABG x2, s/p stent placement is POD#0 s/p left total hip arthroplasty, Dr. Fong. There have been no perioperative complications or nursing concerns reported. Estimated total blood loss documented as 400ml. Updated and reviewed the active medical problems, past medical history, past surgical history, social history, allergies and medications in our electronic EMR. Postoperatively, patient reports pain is well managed. Denies headache or dizziness. Denies chest pain or shortness of breath. Tolerating orals without nausea or vomiting. Review of Systems Narrative: REVIEW OF SYSTEMS: Complete review of systems performed and negative unless otherwise stated in HPI or below. PFSH PFSH Medical History Varicose veins of right lower extremity with pain ?I83.811 - Varicose veins of right lower extremity with pain (ICD-10) Encounter for abdominal aortic aneurysm (AAA) screening (2021) ?Z13.6 - Encounter for screening for cardiovascular disorders (ICD-10) Tobacco use ?Z72.0 - Tobacco use (ICD-10) CAD (coronary artery disease) (05/2023) ?I25.10 - Atherosclerotic heart disease of [place] coronary artery without angina pectoris (ICD-10) Acute non-ST elevation myocardial infarction (NSTEMI) (05/18/23) ?I21.4 - Non-ST elevation (NSTEMI) myocardial infarction (ICD-10) Hypertension ?I10 - Essential (primary) hypertension (ICD-10) Diabetic neuropathy associated with type 2 diabetes mellitus ?E11.40 - Type 2 diabetes mellitus with diabetic neuropathy, unspecified (ICD-10) Hearing loss ?H91.90 - Unspecified hearing loss, unspecified ear (ICD-10) Squamous cell carcinoma Basal cell carcinoma ?C44.91 - Basal cell carcinoma of skin, unspecified (ICD-10) Chronic left hip pain ?M25.552 - Pain in left hip (ICD-10) ?G89.29 - Other chronic pain (ICD-10) Dyslipidemia ?E78.5 - Hyperlipidemia, unspecified (ICD-10) Type 2 diabetes mellitus ?E11.9 - Type 2 diabetes mellitus without complications (ICD-10) Hypertension ?I10 - Essential (primary) hypertension (ICD-10) Surgical History History of coronary artery stent placement (05/26/23) ?Z95.5 - Presence of coronary angioplasty implant and graft (ICD-10) History of coronary artery bypass graft x 2 (05/18/23) ?Z95.1 - Presence of aortocoronary bypass graft (ICD-10) History of open reduction and internal fixation (ORIF) procedure (1975) ?Z98.890 - Other specified postprocedural states (ICD-10) History of varicose vein stripping (1986) ?Z98.890 - Other specified postprocedural states (ICD-10) Skin cancer ?C44.90 - Unspecified malignant neoplasm of skin, unspecified (ICD-10) History of orchiectomy, unilateral (07/25/07) ?Z90.79 - Acquired absence of other genital organ(s) (ICD-10) History of right hip replacement (2016) ?Z96.641 - Presence of right artificial hip joint (ICD-10) S/P laparotomy (1990) ?Z98.890 - Other specified postprocedural states (ICD-10) History of inguinal hernia repair (1966) ?Z98.890 - Other specified postprocedural states (ICD-10) ?Z87.19 - Personal history of other diseases of the digestive system (ICD-10) History of lumbar surgery ?Z98.890 - Other specified postprocedural states (ICD-10) History of hand surgery ?Z98.890 - Other specified postprocedural states (ICD-10) History of Achilles tendon repair (07/20/06) ?Z98.890 - Other specified postprocedural states (ICD-10) Family History Paternal Grandmother CHF (congestive heart failure) Father Cardiomyopathy Diabetes Prostate cancer Mother Stroke, Onset Age: 70 Colon cancer, Onset Age: 78 Diabetes Glaucoma High blood pressure Maternal Grandmother Colon cancer, Onset Age: 75 CHF (congestive heart failure) Paternal Grandfather Stomach cancer Maternal Grandfather Myocardial infarction Sister Lung cancer, Onset Age: 43 Son Seizure disorder Esophageal atresia Social History Narrative: , retired [employer], 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 Exercises daily by walking dog and biking 8-9 miles Ex-smoker quit 2021 before then 6 pack years, has stopped smoking cigars as well 1 alcoholic drink a week What is your current living situation?: I presently have a place to live Problems where you live: no known problems In the past 12 months, utilities in danger of being shut off: no In the past 12 mos, have been you worried that your food would run out before you had money to buy more?: never true In the past 12 mos, the food you bought just didn't last and you didn't have money to buy more?: never true Smoking Status: Never smoker Do you use any of these nicotine containing products: None Second hand tobacco smoke exposure: No How often do you have a drink containing alcohol: 2-4 times a month How many standard drinks containing alcohol do you have on a typical day: 1 or 2 How often do you have six or more drinks on one occasion: Never AUDIT-C Alcohol total score: 2 Non-prescribed substance use: denies use Caffeine: Yes How often does anyone, including family, friends and others, physically hurt you : never How often does anyone, including family, friends and others, insult or talk down to you: never How often does anyone, including family, friends and others, threaten you with harm: never How often does anyone, including family, friends and others, scream or curse at you: never service: No Meds Home Medications and Allergies Home Medications ?Medication ?Instructions ?Recorded ?Confirmed ?Type aspirin 81 mg tablet,delayed 81 mg PO DAILY 06/04/22 07/25/24 History release (Adult Low Dose Aspirin) niacinamide 500 mg tablet 500 mg PO DAILY 06/01/23 07/25/24 History nitroglycerin 0.4 mg sublingual 0.4 mg sublingual Q5M PRN 08/30/23 07/25/24 History tablet amlodipine 2.5 mg tablet 2.5 mg PO DAILY 07/25/24 07/25/24 History nebivolol 5 mg tablet 5 mg PO DAILY 07/25/24 07/25/24 History rosuvastatin 20 mg tablet 20 mg PO DAILY 07/25/24 07/25/24 History Allergies Allergy/AdvReac Type Severity Reaction Status Date / Time atorvastatin Allergy Unknown myalgia Verified 07/25/24 07:41 clindamycin Allergy Unknown Gastrointestinal Verified 07/25/24 07:41 Upset cortisone Allergy Unknown Hives Verified 07/25/24 07:41 metformin AdvReac Unknown Diarrhea Verified 07/25/24 07:41 Exam Narrative: Exam Narrative: PHYSICAL EXAM General: Pleasant, conversant, NAD HEENT: Normocephalic, atraumatic, sclera white, EOMI, oral mucosa moist Cardiovascular: RRR, S1S2. No pitting edema Pulmonary: CTA bilaterally without rhonchi, rales, expiratory wheezes. No dyspnea Neurological: Alert, answering questions appropriately, cranial nerves intact, no focal findings Extremities: No gross joint deformity or swelling. Postoperative dressing in place, dry. Neurovascularly intact Skin: Warm, dry. Const: Vital Signs, click to edit/add: Vital Signs - 24 hr 07/25/24 07:51 07/25/24 10:02 07/25/24 10:05 Temperature 97.8 F Pulse Rate 72 73 68 Pulse Rate [Pulse Oximeter] Respiratory Rate 16 16 16 Blood Pressure 140/83 H 145/87 H 134/80 Pulse Oximetry 96 97 98 Oxygen Delivery Me thod Room Air Nasal Cannula Nasal Cannula Oxygen Flow Rate 2 2 07/25/24 13:00 07/25/24 13:05 07/25/24 13:10 Temperature 97.1 F L Pulse Rate 68 70 68 Pulse Rate [Pulse Oximeter] Respiratory Rate 16 14 16 Blood Pressure 147/88 H 145/86 H 132/82 Pulse Oximetry 93 94 94 Oxygen Delivery Me thod Room Air Room Air Room Air Oxygen Flow Rate 07/25/24 13:15 07/25/24 13:20 07/25/24 13:25 Temperature 97.3 F L Pulse Rate 69 70 73 Pulse Rate [Pulse Oximeter] Respiratory Rate 16 14 14 Blood Pressure 137/79 136/73 135/75 Pulse Oximetry 94 95 94 Oxygen Delivery Me thod Room Air Room Air Oxygen Flow Rate 07/25/24 13:30 07/25/24 13:35 07/25/24 13:40 Temperature 97.4 F L Pulse Rate 71 67 69 Pulse Rate [Pulse Oximeter] Respiratory Rate 12 14 12 Blood Pressure 132/82 135/72 140/78 H Pulse Oximetry 93 95 96 Oxygen Delivery Me thod Room Air Room Air Room Air Oxygen Flow Rate 07/25/24 13:45 07/25/24 13:50 07/25/24 14:00 Temperature 97.3 F L 97.6 F Pulse Rate 68 74 72 Pulse Rate [Pulse Oximeter] Respiratory Rate 14 14 16 Blood Pressure 130/79 134/79 131/71 Pulse Oximetry 95 96 95 Oxygen Delivery Me thod Room Air Room Air Room Air Oxygen Flow Rate 07/25/24 14:15 07/25/24 14:30 07/25/24 14:45 Temperature 96.7 F L 97.2 F L 96.5 F L Pulse Rate 72 80 79 Pulse Rate [Pulse Oximeter] Respiratory Rate 16 18 18 Blood Pressure 127/69 111/64 116/60 Pulse Oximetry 95 95 [facility] Oxygen Flow Rate 07/25/24 15:00 07/25/24 15:00 07/25/24 15:00 Temperature 97.4 F L Pulse Rate 79 Pulse Rate [Pulse Oximeter] 79 Respiratory Rate 18 18 18 Blood Pressure 129/72 Pulse Oximetry 96 96 [facility] Oxygen Flow Rate 07/25/24 15:30 07/25/24 16:00 07/25/24 17:00 Temperature 97.9 F 97.4 F L Pulse Rate 80 79 78 Pulse Rate [Pulse Oximeter] Respiratory Rate 18 18 16 Blood Pressure 126/68 130/73 134/80 Pulse Oximetry 96 95 96 Oxygen Delivery [place] [facility]od Room Air Room Air Room Air Oxygen Flow Rate Assessment and Plan Assessment and plan (1) Chronic left hip pain: Problem comment: -POD#0 s/p L DAVID -perioperative management including pain management and anticoagulation per Orthopedic surgery -encourage postoperative pulmonary hygiene -PT OT consults -plan to discharge home tomorrow with spouse Status: Chronic (2) Type 2 diabetes mellitus: Problem comment: -most recent A1c 6.7 -continue glipizide, hold Trulicity -glucose checks ACHS, will hold off on SSI for now, monitoring for need Status: Chronic (3) Dyslipidemia: Problem comment: -continue statin Status: Chronic (4) Hypertension: Problem comment: -continue amlodipine Status: Chronic Total Time Spent Total Time Spent: Total time spent caring for the patient today was 45 minutes. This includes time spent for the visit reviewing the chart, time spent during the visit, time spent after the visit and documentation and planning in coordination of care.
[2024-07-25] MEDS: ONDANSETRON 2 MG/ML inj 4 MG IVP (19:16)
[2024-07-25] MEDS: SENNOSIDES 1 TAB TABLET 2 TAB PO (22:01)
[2024-07-25] MEDS: glipiZIDE 5 MG TABLET 10 MG PO (22:01)
[2024-07-26] MEDS: ACETAMINOPHEN 500 MG TABLET 1000 MG PO ×2 (00:20→05:48)
[2024-07-26 00:24] VITALS: BP 133/76; PULSE 85; RESP 16; TEMP 36.6; O2SAT 96
[2024-07-26] MEDS: CEFAZOLIN 2 GM in 0.9 % SODIUM CHLORIDE Mini-bag 100 ML IVPB (00:24)
--- NOTE | 2024-07-26 00:25 | PC.NURSE ---
Shift summary: Pt returned from PACU at 1400. He's been A&O, afebrile and VSS. Pain has been adequately controlled with PRN oxycodone, last given at 2200. IV continued @ 75 mL/hr after little PO intake and x1 urination. Pt has had some nausea post-op requiring a dose of IV Zofran; no emesis. Blood sugars were 194 > 191 pt managed with PO medications. No insulin ordered for today. He is Ax1 with gait belt and 2ww. Left anterior hip dressing is C/D/I with some swelling around his thigh. Active ice was in place initially but pt c/o the pressure causing pain so it was removed. SCD's in place. Plan to discharge home with tomorrow, 07/26.
[2024-07-26 03:33] VITALS: BP 141/63; PULSE 74; RESP 16; TEMP 36.6; O2SAT 97
[2024-07-26] MEDS: OXYCODONE 5 MG TABLET PO ×2 (03:35→08:31)
[2024-07-26 07:00] VITALS: BP 122/78; PULSE 80; RESP 16; TEMP 36.9; O2SAT 96
--- NOTE | 2024-07-26 07:27 | PC.NURSE ---
Pt is alert and oriented x3. Afebrile. Pt reports 1-2/10 pain in left hip, pain managed with scheduled medication. Pt?s left hip dressing is CDI. Pt is up SBA with walker and gait belt, voiding, and tolerating a regular diet. ?
[2024-07-26 07:37] LABS: Basophils Absolute Auto 0.01 K/uL (0.00-0.30); Basophils Percent Auto 0.1 % (0.0-3.0); Eosinophils Absolute Auto 0.03 K/uL (0.00-0.50); Eosinophils Percent Auto 0.4 % (0.0-7.0); Hematocrit 35.3 % (37.0-53.0); Immature Granulocytes Abs Auto 0.01 K/uL (0.00-0.30); Immature Granulocytes Pct Auto 0.1 %; Lymphocytes Absolute Auto 1.84 K/uL (0.90-2.90); Lymphocytes Percent Auto 22.2 % (20-44); Mean Corpuscular HGB Conc 34 gm/dL (32-36); Mean Corpuscular Hemoglobin 31 pg (26-34); Mean Corpuscular Volume 90 fL (80-100); Monocytes Percent Auto 11.7 % (0.0-11.0); Neutrophils Absolute Auto 5.42 K/uL (1.7-7.0); Neutrophils Percent Auto 65.5 % (42.0-72.0); Platelet Count* 223 K/uL (140-440); RDW Coefficient of Variation % 12.7 % (11.5-15.5); Red Blood Count 3.93 m/uL (4.30-5.90); White Blood Count* 8.28 K/uL (4.50-11.00)
[2024-07-26 07:49] LABS: Slide Review Reflex No
[2024-07-26 08:04] LABS: Potassium* 4.1 mmol/L (3.6-5.1); Sodium* 132 mmol/L (135-149)
[2024-07-26 08:07] LABS: Blood Urea Nitrogen* 16 mg/dL (7-30); Creatinine* 0.8 mg/dL (0.5-1.5); Est. Creatinine Clearance* 74.01; Estimated Glomerular Filt Rate 97 ml/min
[2024-07-26] MEDS: RIVAROXABAN 10 MG TABLET PO (08:31)
[2024-07-26] MEDS: glipiZIDE 5 MG TABLET 10 MG PO (08:31)
[2024-07-26] MEDS: SENNOSIDES 1 TAB TABLET 2 TAB PO (08:31)
[2024-07-26] MEDS: AMLODIPINE 5 MG TABLET 2.5 MG PO (08:32)
--- NOTE | 2024-07-26 11:01 | PM.ORPN ---
Subjective Subjective Time Seen by Provider: 08:00 Date Seen: 07/26/24 Principal diagnosis: Day 1 s/p left total hip arthroplasty Interval history: Raj is doing very well and resting comfortably in bed. Reports 0 out of 10 [left hip] pain but does c/o mild left ankle pain, which I told him is related to the surgical boots used. Denies postop chest pain, SOB, fever, chills, numbness/tingling distally. Denies postop bowel movement, but admits to flatulence. Patient has nausea yesterday, but reports this improved with Zofran. Patient's will be assisting him at home. Ortho Exam Narrative Exam Narrative: Incision/Dressing: Dressing appears clean and dry. No drainage present. Mepilex intact. Left hip appears moderately swollen but supple with no obvious erythema, fluctuance or excessive warmth. No ecchymosis or erythematous streaking. Warmth around the wound is appropriate. Ice is being utilized as needed. CMS: Intact distally with 2+ Dorsalis pedis and Posterior Tibial pulses. 5/5 motor strength dorsal and plantar flexion. Confirmed sensation distally. Calf: Bilateral calves are supple, with no swelling, pain, tenderness, erythema, discoloration or coolness to the touch. Constitutional: Patient is alert and oriented x3. Patient is in no acute distress and converses without labored breathing. Patient is able to make decisions and demonstrates good insight. Patient is pleasant and cooperative. Affect is full range and appropriate for the circumstances. Const Vital Signs, click to edit/add: Vital Signs - 24 hr 07/25/24 13:00 07/25/24 13:05 07/25/24 13:10 Temperature 97.1 F L Pulse Rate 68 70 68 Pulse Rate [Pulse Oximeter] Respiratory Rate 16 14 16 Blood Pressure 147/88 H 145/86 H 132/82 Blood Pressure [Left Arm] Pulse Oximetry 93 94 94 Oxygen Delivery Method Room Air Room Air Room Air 07/25/24 13:15 07/25/24 13:20 07/25/24 13:25 Temperature 97.3 F L Pulse Rate 69 70 73 Pulse Rate [Pulse Oximeter] Respiratory Rate 16 14 14 Blood Pressure 137/79 136/73 135/75 Blood Pressure [Left Arm] Pulse Oximetry 94 95 94 Oxygen Delivery Method Room Air Room Air 07/25/24 13:30 07/25/24 13:35 07/25/24 13:40 Temperature 97.4 F L Pulse Rate 71 67 69 Pulse Rate [Pulse Oximeter] Respiratory Rate 12 14 12 Blood Pressure 132/82 135/72 140/78 H Blood Pressure [Left Arm] Pulse Oximetry 93 95 96 Oxygen Delivery Method Room Air Room Air Room Air 07/25/24 13:45 07/25/24 13:50 07/25/24 14:00 Temperature 97.3 F L 97.6 F Pulse Rate 68 74 72 Pulse Rate [Pulse Oximeter] Respiratory Rate 14 14 16 Blood Pressure 130/79 134/79 131/71 Blood Pressure [Left Arm] Pulse Oximetry 95 96 95 Oxygen Delivery Method Room Air Room Air Room Air 07/25/24 14:15 07/25/24 14:30 07/25/24 14:45 Temperature 96.7 F L 97.2 F L 96.5 F L Pulse Rate 72 80 79 Pulse Rate [Pulse Oximeter] Respiratory Rate 16 18 18 Blood Pressure 127/69 111/64 116/60 Blood Pressure [Left Arm] Pulse Oximetry 95 95 95 Oxygen Delivery Method Room Air Room Air Room Air 07/25/24 15:00 07/25/24 15:00 07/25/24 15:00 Temperature 97.4 F L Pulse Rate 79 Pulse Rate [Pulse Oximeter] 79 Respiratory Rate 18 18 18 Blood Pressure 129/72 Blood Pressure [Left Arm] Pulse Oximetry 96 96 Oxygen Delivery Method Room Air Room Air 07/25/24 15:30 07/25/24 16:00 07/25/24 17:00 Temperature 97.9 F 97.4 F L Pulse Rate 80 79 78 Pulse Rate [Pulse Oximeter] Respiratory Rate 18 18 16 Blood Pressure 126/68 130/73 134/80 Blood Pressure [Left Arm] Pulse Oximetry 96 95 96 Oxygen Delivery Method Room Air Room Air Room Air 07/25/24 20:00 07/26/24 00:24 07/26/24 00:24 Temperature 98.2 F 97.9 F Pulse Rate 83 Pulse Rate [Pulse Oximeter] 85 Respiratory Rate 16 16 16 Blood Pressure 117/74 Blood Pressure [Left Arm] 133/76 Pulse Oximetry 95 96 96 Oxygen Delivery Method Room Air Room Air Room Air 07/26/24 03:33 07/26/24 07:00 07/26/24 07:00 Temperature 97.8 F 98.4 F Pulse Rate Pulse Rate [Pulse Oximeter] 74 80 Respiratory Rate 16 16 16 Blood Pressure Blood Pressure [Left Arm] 141/63 H 122/78 Pulse Oximetry 97 96 96 Oxygen Delivery Method Room Air Room Air Room Air Assessment and Plan Assessment and plan (1) Status post total hip replacement, left: Problem details: DOS: 07/26/24; Dr. Fong Status: Acute Assessment and Plan: - Complete 23 hour perioperative antibiotics. - PT/OT consults for education and assistance. - Weight bear as tolerated with a walker for assistance. - Prescribed analgesics as needed. Patient is content with current narcotic medications. Minimize narcotic pain medication use; wean off and discontinue as soon as possible. - DVT prophylaxis: Xarelto x 5 days followed by aspirin 81 mg BID x 30 days. Also, frequent ambulation and ankle pumps when sedentary. - Social consult for discharge planning. - Anticipate patient will be discharged to home this afternoon if the patient remains medically stable, pain is controlled and is safe with ambulation. - Return to clinic in 1 week for a wound check. Mepilex dressing will be removed at this appointment. Remove sooner if dressing becomes saturated. - Return to clinic in [address] Fong. - Phone Orthopedics with any questions or concerns. [phone]
--- NOTE | 2024-07-26 11:42 | PC.NURSE ---
Pt discharged @ 1058 via wheelchair, back to home. Accompanied by and son. Pt Ax0x4, pain controlled. Discharge forms singed. IV removed.
== END 2024-07-26 10:58 | disposition home or self-care (01) ==
LOC: OR 07:33 → MEDSURG 07:35
PROVIDERS: PCP Family Medicine; Visit Provider Orthopaedic Surgery
PROC: (CPT 27130; principal; 2024-07-25 09:45)
DX: M16.12 Unilateral primary osteoarthritis, left hip (principal); G89.18 Other acute postprocedural pain; E11.40 Type 2 diabetes mellitus with diabetic neuropathy, unspecified; I10 Essential (primary) hypertension; I25.10 Atherosclerotic heart disease of native coronary artery without angina pectoris; E78.5 Hyperlipidemia, unspecified
CPT/HCPCS: 27130; 01214; 36415; 64450; 73501; 76942; 82565; 82962; 84132; 84295; 84520; 85025; 86850; 86900; 86901; 97110; 97116; 97161; 97165; 97530; 97535; A9270; C1776; J0330; J0690; J1171; J2250; J2371; J2405; J2704; J2710; J2795; J3010; J3475; J3490; J7120

== ENCOUNTER 2024-09-18 12:46 | Outpatient (CLI) | payer MEDICARE, BC, SELFPAY ==
--- NOTE | 2024-09-18 13:00 | CRLHL7_ITS ---
For Patients: As a result of the Century Cures Act, medical imaging exams and procedure reports are released immediately into your electronic medical record. You may view this report before your referring provider. If you have questions, please contact your health care provider. Indication: RT UPPER LOBE PULMONARY NODULE Technique: Noncontrast CT chest Please note that all CT scans at this facility use dose modulation, iterative reconstruction, and/or weight-based dosing when appropriate to reduce radiation dose to as low as reasonably achievable. Comparison: 05/18/2023 Findings: Stable 4 millimeter nodule in the right upper lobe. Stable scarring in the posterior right lung apex. No infiltrate or edema. No pneumothorax or pleural effusion. Postoperative changes of coronary artery bypass graft procedure. Calcified stones in the gallbladder lumen are again noted. Normal adrenal glands. No hiatal hernia. No adenopathy. Visualized thyroid normal. No fracture. Bridging osteophytes. Impression: Stable 4 millimeter right upper lobe pulmonary nodule. No further follow-up indicated unless the patient has a 20 pack-year or greater smoking history Please note that all CT scans at this facility use dose modulation, iterative reconstruction, and/or weight-based dosing when appropriate to reduce radiation dose to as low as reasonably achievable. Dictated by Robert Yap MD @ 09/18/2024 1:29:41 PM (Electronically Signed)
== END 2024-09-18 12:47 | disposition home or self-care (01) ==
LOC: CT 12:47
PROVIDERS: PCP Family Medicine; Visit Provider Family Medicine
DX: R91.1 Solitary pulmonary nodule (principal); Z87.891 Personal history of nicotine dependence
CPT/HCPCS: 71250

== ENCOUNTER 2024-09-25 10:45 | Outpatient (RCR) | payer MEDICARE, BC, SELFPAY ==
--- NOTE | 2024-08-01 16:15 | PT.OPEX ---
PT [place] [facility] Eval PT [facility] Outpatient Eval Start: 08/01/24 13:19 Freq: Status: Active Protocol: Document 08/01/24 13:23 TOVA (Rec: 08/01/24 15:48 TOVA [id number]) E-signed By Jair Viera PT Physical Therapy Outpatient Evaluation Insurance Information Insurance Name Medicare B,Blue Cross/[employer] Medical Diagnosis Left hip OA Left hip DAVID 07/25/24) Treating Diagnosis Left hip pain Impaired gait Decreased left hip ROM and gluteal/LE strength Referring MD Fong Subjective Preferred Name Raj Rosales Pt. reports having a left hip DAVID on 07/25/24 due to longstanding OA/pain. Prior right hip DAVID 7 years ago due to OA which went well with a good outcome overall. Things have been going ok so far at home this past week since surgery. He does have trouble sleeping on his back as he normally sleeps on his side but can't yet. He has been using a walker for ambulation. He has a very difficult time getting into his truck with his helping and can't get into their car. He complains of left thigh pain and tightness with only mild actual hip pain. PMH includes; heart attack with double bypass and stent in 2022; diabetes, HTN, OA, LBP, and allergies. His goal is to be able to walk without assistive device without pain or limp for regular exercise with ability to perform all ADL's without difficulty. Pain Comments 2-3 hip Date of Surgery (If applicable) 07/25/24 Current Work Status Retired Objective Other/Pertinent Objective Posture: flexed posture due to hip flexor tightness and back stiffness LROM: moderate limitations noted Hip ROM: Right side WFL for age but tight overall; left side significant loss of ROM into flexion, extension, IR, ER and abduction. Strength: right LE grossly 4+/ 5; left hip abduction, extension, hip flexion all 2+/ 5; left quad 3+/5 Gait: ambulation with FWW with decreased stride, stance, and heel/toe gait pattern. Knee ROM: left knee extension deficit with hamstring tightness and knee stiffness. Core weakness and deconditioning Assessment Assessment/Impression Objectively, pt. demonstrates; significant stiffness of left hip due to muscle shortening from chronic pain leading up to surgery; inability to fully extend left knee; significant left hamstring and quad tightness; impaired gait with use of FWW with moderate limp, shortened stride and flexed posture due to hip flexor tightness; left hip abductor, hip flexor and quad weakness; and inability to lift leg onto treatment table/bed currently ; decreased left knee flexion ROM with significant difficulty going sit to stand and stand to sit; and core weakness. He would benefit from skilled therapy working on progressive mobility, gait and strengthening. Primary Functional Limitations getting into bed/car; walking; going stand to sit and sit to stand; squatting Plan of Care Rehabilitation Potential Excellent Physical Therapy Goals 1. Pt. will be independent with HEP for self maintenance in 8 weeks. 2. Pt. will demonstrate improved left hip ROM to functional levels in 8 weeks. 3. Pt. will demonstrate improved hip/gluteal strength to functional level in 8 weeks . 4. Pt. will be able to walk without assistive device with only mild limp in 8 weeks. Coordination/Communication With Referral Source Treatment Plan/Direct Interventions Gait Training,Manual Therapy, Neuromuscular Re-ed,Self-Care/ Home Management,Therapeutic Exercises Frequency/Duration Weekly for 8 weeks. Patient Will Be Discharged From Therapy Independent w/HEP, Independently Progressing Evaluation Billing Complexity Low Certification Information Initial Certification Date 08/01/24 Ending Certification Date 10/30/24 Provider Signature Required Yes Provider Signature Shows Agreement With POC & Medical Necessity Physician NPI Number Write NPI# Here Physician Comment/Change : Physician Signature & Date Requested Please Sign/Date Here
--- OUTSIDE RECORDS SUMMARY | 2024-08-17 09:57 | XMS_ITS | Clinical Summary ---
Author Organization [facility] Address [place], [place] [address] Care Team Providers Care Heat Treat Technician Name Role Phone Criss Elias MD Primary [...] 1 Tablet by mouth once daily. Active diphenhydrAMINE- acetaminophen 25-500 mg (Tylenol PM Extra Strength) 25-500 mg tablet Take 2 Tablets by mouth at bedtime. Max acetaminophen dose: 4000mg in 24 hrs. Active aspirin chewable 81 mg chewable tabletIndication s:NSTEMI (non-ST elevated myocardial infarction) (HC),S/P CABG x 2 Chew 1 Tablet (81 mg) by mouth once daily with a meal. 90 Tablet 3 05/27/2023 10:31 AM CDT 05/27/20 Active acetaminophen (TYLENOL EXTRA STRGTH) 500 mg tabletIndication s:S/P CABG x 2 Take 2 Tablets (1,000 mg) by mouth every 6 hours if needed for Pain. Max acetaminophen dose: 4000mg in 24 hrs. 120 Tablet 05/27/2023 10:31 AM CDT 05/27/20 Active glipiZIDE (GLUCOTROL) 10 mg tabletIndication s:Type 2 diabetes mellitus with other diabetic neurological complication (HC) Take 1 Tablet (10 mg) by mouth two times daily before meals. 0 05/28/20 Active Trulicity 1.5 mg/0.5 mL subcutaneous penIndications:T ype 2 diabetes mellitus with other diabetic neurological complication (HC) Inject 1.5 mg subcutaneous once weekly. 2 mL 05/28/20 Active amLODIPine (NORVASC) 2.5 mg tabletIndication s:NSTEMI (non-ST elevated myocardial infarction) (HC),S/P CABG x 2 Take 1 Tablet (2.5 mg) by mouth once daily. 90 Tablet 3 07/09/20 23 Active clopidogreL (PLAVIX) 75 mg tabletIndication s:NSTEMI (non-ST elevated myocardial infarction) (HC),S/P CABG x 2 Take 1 Tablet (75 mg) by mouth every morning. Continue taking daily for 1 year (until May 2024). 90 Tablet 3 07/09/20 23 Active nitroglycerin (NITROSTAT) 0.4 mg sublingual tabletIndication s:NSTEMI (non-ST elevated myocardial infarction) (HC),S/P CABG x [address] 1 Tablet (0.4 mg) under the tongue every 5 minutes if needed for Chest pain 1st choice (Hold if SBP less than 90 mmHg). 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 05/18/2023 Encounters Date Type Department Care Team Description 07/02/2024 Refill [facility] [address] [place] [address] Abraham Rivera MD Refill Request (Rosuvastatin) from [...] Sex Assigned at Male 07/08/2023 9:42 AM ORTHOPEDIC DENTIST Legal Sex Male 6:20 AM ORTHOPEDIC DENTIST Gender Identity Male 07/08/2023 9:42 AM ORTHOPEDIC DENTIST Sexual Orientation Straight 07/08/2023 9: 42 AM ORTHOPEDIC DENTIST Obstetrics History Last Filed Vital Signs Vital Sign Reading Time Taken Comments Blood Pressure 143/77 07/09/2023 1:11 PM ORTHOPEDIC DENTIST Pulse 69 07/09/2023 1:11 PM ORTHOPEDIC DENTIST Temperature 36.9 C (98.4 F) 05/27/2023 8:45 AM CDT Respiratory Rate 18 06/03/2023 2:00 PM CDT Oxygen Saturation 100% 07/09/2023 1:11 PM ORTHOPEDIC DENTIST Inhaled Oxygen Concentration - - Weight 99.4 kg (219 lb 3.2 oz) 07/09/2023 1:11 P M ORTHOPEDIC DENTIST Height 180.3 cm (5' 11) 06/03/2023 2:00 PM CDT Body Mass Index 30.57 06/03/2023 2:00 PM CDT Plan of Treatment Health Maintenance Due Date Last Done Comments Tdap 02/22/1968 BMI (ht and wt on same day) for age 18+ 1975 Hepatitis C screening for ag e 18-79 1975 Pneumococcal series for age 50+ (1 of 2 - PCV) 02/22/1976 Colonoscopy through age 75 2002 Zoster (shingles) [...] - In AM (05/19/2023 10:25 AM CDT) Pathologist [facility] CHOLESTEROL,TOTAL 190 100 - 199 mg/dL 05/19/2023 11:12 AM CDT [facility] Comment: Cholesterol, Total Reference Ranges Desirable <200 mg/dL Borderline 200-239 mg/dL High >=240 mg/dL TRIGLYCERIDES 300(H) <150 mg/dL 05/19/2023 11:12 AM CDT [facility] HDL CHOLESTEROL 44 >40 mg/dL 11:12 AM CDT [facility] NON-HDL CHOLESTEROL 146(H) <145 mg/dl 05/19/2023 11:12 AM CDT [facility] CHOL/HDL RATIO 4.32 <4.50 05/19/2023 11:12 AM CDT [facility] LDL CHOLESTEROL 86 <=130 mg/dL 05/19/2023 11:12 AM CDT [facility] VLDL CHOLESTEROL 60(H) <=30 mg/dL 05/19/2023 11:12 AM CDT [facility] PROVIDER ORDERED STATUS RANDOM 05/19/2023 11:12 AM T [facility] Blood BLOOD SPECIMEN / Unknown Non-Lab Venipuncture / Unknown 05/19/2023 10:25 AM CDT 05/19/2023 10:33 AM CDT us Andrews Solares MD CHEMISTRY Final Res ult [facility] [address] [address], from Last 3 Months or Most Recently Relevant to Health Maintenance Insurance [facility] MEDICARE [place] ONLY MEDICARE PART B HB ONLY MEDICARE PART A HB ONLY Advance Directives * Full Code (Latest Code Status on File) Date Activated Date Inactivated Comments 05/18/2023 3:36 PM 05/27/2023 3:44 PM Question Answer Comments Code Status Discussion: Reviewed Preferences Care Teams Heat Treat Technician Relationship Specialty Start Date End Date Criss Elias MD [address] [place] [address] PCP - General Family Practice 04/29/23
== END 2024-09-25 13:39 | disposition home or self-care (01) ==
PROVIDERS: PCP Family Medicine; Visit Provider Orthopaedic Surgery
DX: M16.12 Unilateral primary osteoarthritis, left hip (principal); Z96.642 Presence of left artificial hip joint; M25.552 Pain in left hip; R26.9 Unspecified abnormalities of gait and mobility; Z74.09 Other reduced mobility; Z51.89 Encounter for other specified aftercare
CPT/HCPCS: 97110; 97140; 97161

== ENCOUNTER 2025-01-16 07:27 | Outpatient (CLI) | payer MEDICARE, BC, SELFPAY | END 2025-01-16 07:28 | disposition home or self-care (01) | LOC: NFLDREF 01-18 08:56 | PROVIDERS: PCP Family Medicine; Referring Provider Family Medicine; Visit Provider Family Medicine | DX: I10 Essential (primary) hypertension (principal); E78.5 Hyperlipidemia, unspecified; E11.40 Type 2 diabetes mellitus with diabetic neuropathy, unspecified | CPT/HCPCS: 80053; 80061 ==

== ENCOUNTER 2025-02-21 08:54 | Day surgery (SDC) | payer MEDICARE, BC, SELFPAY ==
[2025-02-21] VITALS (7 sets, daily range): BP systolic 127–153; BP diastolic 77–90; PULSE 62–78; RESP 16; TEMP 36.2–37.1; O2SAT 95–100; BMI 31.8
[2025-02-21] MEDS: LACTATED RINGERS 1000 ML 1,000 ML 100 ML IV (09:20)
[2025-02-21] MEDS: SODIUM CHLORIDE 0.9 % (FLUSH) 10 ML SYRINGE IVF (09:20)
[2025-02-21] MEDS: BUPIVACAINE 0.25% 30 ML INJECTION (10:15)
--- NOTE | 2025-02-21 11:00 | SUR.OPER ---
Bone marrow aspiration drawn at 10:22
--- NOTE | 2025-02-21 11:09 | P.ANES_ITS ---
Anesthesia Charges Start Date/Time Anesthesia Start Date: 02/21/25 Anesthesia Start Time: 09:57 Stop Date/Time Anesthesia Stop Date: 02/21/25 Anesthesia Stop Time: 12:26 Coding CPT Codes CPT Codes: ANESTH LOWER LEG BONE SURG - 13628 ([id number]) P3 - PATIENT W/SEVERE SYS DISEASE, QK - COMMISSIONS COORDINATOR 2-4 CNCRNT ANES PROC, QX - PLYWOOD LAYUP LINE BACK FEEDER SVC W/ MD MED DIRECTION
--- NOTE | 2025-02-21 11:09 | W.ANESCHARGE ---
Anesthesia Charges Start Date/Time Anesthesia Start Date: 02/21/25 Anesthesia Start Time: 09:57 Stop Date/Time Anesthesia Stop Date: 02/21/25 Anesthesia Stop Time: 12:26 Coding CPT Codes CPT Codes: ANESTH LOWER LEG BONE SURG - 24445 ([id number]) P3 - PATIENT W/SEVERE SYS DISEASE, QK - WOMEN'S SWIM COACH 2-4 CNCRNT ANES PROC, QX - MECHANICAL METER TESTER SVC W/ MD MED DIRECTION
--- NOTE | 2025-02-21 12:43 | P.ANES_ITS ---
Anesthesia Charges Start Date/Time Anesthesia Start Date: 02/21/25 Anesthesia Start Time: 09:57 Stop Date/Time Anesthesia Stop Date: 02/21/25 Anesthesia Stop Time: 12:26 Coding CPT Codes CPT Codes: ANESTH LOWER LEG BONE SURG - 41132 ([id number]) P3 - PATIENT W/SEVERE SYS DISEASE, QK - AUTO RESEARCH ENGINEER 2-4 CNCRNT ANES PROC, QX - UM NURSE SVC W/ MD MED DIRECTION
--- NOTE | 2025-02-21 12:43 | W.ANESCHARGE ---
Anesthesia Charges Start Date/Time Anesthesia Start Date: 02/21/25 Anesthesia Start Time: 09:57 Stop Date/Time Anesthesia Stop Date: 02/21/25 Anesthesia Stop Time: 12:26 Coding CPT Codes CPT Codes: ANESTH LOWER LEG BONE SURG - 59191 ([id number]) P3 - PATIENT W/SEVERE SYS DISEASE, QK - KNIT GOODS MENDER 2-4 CNCRNT ANES PROC, QX - MEDICAL BILLER/CODER SVC W/ MD MED DIRECTION
--- NOTE | 2025-02-23 09:37 | W.PODPROC_ITS ---
Date of Procedure: 02/21/25 Surgeon: Dinesh Pettit DPM Co-Surgeon: Delmi Chew DPM Pre-op Diagnosis: 1. Hallux malleus, right 2. Hammertoe and contracture 2nd toe, right foot 3. Hammertoe and contracture 3rd toe, right foot 4. Hammertoe and contracture 4th toe, right foot 5. Hammertoe and contracture 5th toe, right foot Post-op Diagnosis: Same Type of Procedure: 1. Bone Marrow Aspiration, Right Foot [CPT: 29477] 2. Hallux interphalangeal joint arthrodesis, right [CPT: 47615] 3. 2nd Toe PIPJ Arthrodesis and Flexor Tenotomy, Right [CPT: 83504 & 97296] 4. 3rd Toe PIPJ Arthrodesis and Flexor Tenotomy, Right [CPT: 80037 & 39271] 5. 4th Toe PIPJ Arthrodesis and Flexor Tenotomy, Right [CPT: 83683 & 72056] 6. 5th Toe PIPJ Arthroplasty and Flexor Tenotomy, Right [CPT: 56291 & 36798] Indications: Rigid contractures to digits 1-5 with pre-ulcerative callus present (history of open ulceration) recalcitrant to conservative cares Procedure Description: The patient was identified prior to being brought into the operating room using the name and date of as identifiers. The intended surgical plan was again reviewed in detail with the patient as well as the rationale for surgery, the most common risks, complications, and expected recovery course. The patient was given the opportunity to ask questions which were answered to the best of my ability. The patient ultimately voiced no questions or concerns, and agreed to proceed forward with the surgery as planned. The patient was brought from the preoperative holding area to the operating room, and placed on the operating table in the supine position. At this time, a time-out was performed to identify the proper patient, site, and operation to be performed. A well-padded pneumatic ankle tourniquet was applied to the patient's right ankle. A preoperative injection of 0.25% Marcaine plain was administered in a field block fashion to each toe of the patient's right foot. The operative foot was then scrubbed, prepped, and draped in the normal sterile fashion. Bone Marrow Aspiration, Right Foot The lateral aspect of the calcaneus was penetrated to harvest bone graft/aspirate using a 15 gauge needle using standard technique and bone marrow along with chips of cancellous bone aspirated in 2-cc increments with redirection between each increment until an appropriate volume of bone marrow aspirate/bone graft was obtained for use with the operative procedure performed. The integrity of the bone marrow aspiration sites were verified with stress palpation. The right lower extremity was exsanguinated and the pneumatic ankle tourniquet was inflated to a level of 250 mmHg. Hallux interphalangeal joint arthrodesis, right Attention was directed to the hallux interphalangeal joint of the operative lower extremity where a transverse converging semi-elliptical incision was placed overlying the interphalangeal joint. The incision was deepened through th e subcutaneous tissues with care taken to identify, retract, and protect all vital structures and coagulate any bleeders as necessary. The dissection continued to the level of the joint capsule and terminal insertion of the extensor hallucis longus tendon which were incised thereby exposing the interphalangeal joint. The articular cartilage on the head of the proximal phalanx and base of the intermediate phalanx were then resected using a combination of hand-held and power instrumentation, after which all rough edges of bone were smoothed to normal anatomic contour and the base of the distal p halanx was fenestrated with a small drill to expose the cancellous bone. The surgical site was then copiously irrigated. Next, the previously obtained bone marrow aspirate was then introduced into the arthrodesis site to promote and enhance osseous healing.Using standard A.O. Technique a compression lag screw was delivered across the arthrodesis site which allowed for satisfactory osseous apposition and stability which where verified through clinical exam and intra- operative image intensification. The extensor tendon was re-approximated with a 3-0 Vicryl in a horizontal mattress type suture technique. The skin was re- approximated with a 4-0 nylon in a simple interrupted type suture technique. 2nd Toe PIPJ Arthrodesis and Flexor Tenotomy, Right Attention was then directed to the dorsal aspect of the 2nd metatarsophalangeal and 2nd digit of the foot. A longitudinal linear incision was made over the dorsal aspect of the proximal interphalangeal joint. The incision was deepened through subcutaneous tissue, taking care to retract and protect all vital neurovascular structures. The level of the extensor tendon and capsule was identified at the proximal interphalangeal joint. A dorsal transverse tenotomy and capsulotomy was made and lateral and medial collateral ligaments were transected. An extensor flap was created sharply on the dorsal aspect of the proximal phalanx, as well as on the proximal aspect of the middle phalanx. A sagittal saw was utilized to resect the head of the proximal phalanx and the base of the middle phalanx. A percutaneous flexor tenotomy was then performed at the level of the proximal interphalangeal joint using a 16-gauge needle. An 0.045 K-wire was then driven through the middle and distal phalanx of the distal aspect of the toe, and then retrograded into the base of the proximal phalanx. Good rectus alignment of the digit was noted. The redundant tendinous tissue was excised at the dorsal aspect of the proximal interphalangeal joint. The extensor tendon was re-approximated with a 3-0 Vicryl in a horizontal mattress type suture technique. The skin was re-approximated with a 4-0 nylon in a simple interrupted type suture technique. 3rd Toe PIPJ Arthrodesis and Flexor Tenotomy, Right Attention was then directed to the dorsal aspect of the 3rd metatarsophalangeal and 3rd digit of the foot. A longitudinal linear incision was made over the dorsal aspect of the proximal interphalangeal joint. The incision was deepened through subcutaneous tissue, taking care to retract and protect all vital neurovascular structures. The level of the extensor tendon and capsule was identified at the proximal interphalangeal joint. A dorsal transverse tenotomy and capsulotomy was made and lateral and medial collateral ligaments were transected. An extensor flap was created sharply on the dorsal aspect of the proximal phalanx, as well as on the proximal aspect of the middle phalanx. A sagittal saw was utilized to resect the head of the proximal phalanx and the base of the middle phalanx. A percutaneous flexor tenotomy was then performed at the level of the proximal interphalangeal joint using a 16-gauge needle. An 0.045 K-wire was then driven through the middle and distal phalanx of the distal aspect of the toe, and then retrograded into the base of the proximal phalanx. Good rectus alignment of the digit was noted. The redundant tendinous tissue was excised at the dorsal aspect of the proximal interphalangeal joint. The extensor tendon was re-approximated with a 3-0 Vicryl in a horizontal mattress type suture technique. The skin was re-approximated with a 4-0 nylon in a simple interrupted type suture technique. 4th Toe PIPJ Arthrodesis and Flexor Tenotomy, Right Attention was then directed to the dorsal aspect of the 4th metatarsophalangeal and 4th digit of the foot. A longitudinal linear incision was made over the dorsal aspect of the proximal interphalangeal joint. The incision was deepened through subcutaneous tissue, taking care to retract and protect all vital neurovascular structures. The level of the extensor tendon and capsule was identified at the proximal interphalangeal joint. A dorsal transverse tenotomy and capsulotomy was made and lateral and medial collateral ligaments were transected. An extensor flap was created sharply on the dorsal aspect of the proximal phalanx, as well as on the proximal aspect of the middle phalanx. A sagittal saw was utilized to resect the head of the proximal phalanx and the base of the middle phalanx. A percutaneous flexor tenotomy was then performed at the level of the proximal interphalangeal joint using a 16-gauge needle. An 0.045 K-wire was then driven through the middle and distal phalanx of the distal aspect of the toe, and then retrograded into the base of the proximal phalanx. Good rectus alignment of the digit was noted. The redundant tendinous tissue was excised at the dorsal aspect of the proximal interphalangeal joint. The extensor tendon was re-approximated with a 3-0 Vicryl in a horizontal mattress type suture technique. The skin was re-approximated with a 4-0 nylon in a simple interrupted type suture technique. 5th Toe PIPJ Arthroplasty and Flexor Tenotomy, Right Attention was then directed to the dorsal aspect of the 5th digit, right foot. Converging semi-eliptical incisions were made over the dorsal aspect of the proximal interphalangeal joint of the 5th digit. The small elipse of skin was freed from the underlying subcutaneous tissue and passed to the back table. The incision was deepened through subcutaneous tissue, taking care to retract and protect all vital neural and vascular structures. The level of the extensor tendon and capsule was identified at the proximal interphalangeal joint. A dorsal transverse tenotomy and capsulotomy was made and lateral and medial collateral ligaments were transected. An extensor flap was created sharply on the dorsal aspect of the proximal phalanx. A sagittal saw was utilized to resect the head of the proximal phalanx at the surgical neck. The head was passed to the back table. The redundant tendinous tissue was excised at the dorsal aspect of the proximal interphalangeal joint. A percutaneous flexor tenotomy was then performed at the level of the proximal interphalangeal joint using a 16-gauge needle. The extensor tendon was re-approximated with a 2-0 Vicryl in a horizontal mattress type suture technique. The skin was re-approximated with a 4-0 nylon in a simple interrupted type suture technique. Once the skin was re- approximated full correction of the mild pre-operative rotation of the 5th digit was appreciated and a good rectus position of the digit was noted. A well-padded postoperative dressing consisting of Xeroform, 4 x 4 gauze sponges, webril, michael, and DANA bandage was applied to the right foot and ankle. The pneumatic ankle tourniquet was released and immediate reperfusion to digits 1 through 5 of the right foot was noted. After reversing monitored anesthesia care, the patient was transferred from the operating table to the transport bed and escorted to the post anesthesia care unit by the anesthesiology team with vital signs stable and vascular status intact to the right lower extremity. The patient appeared to tolerate both the procedure and anesthesia well. Anesthesia: MAC and local Hemostasis: ankle Estimated blood loss (mL): 10 Provider Operated C-arm: C-arm fluoroscopy operated by Dr. Pettit for verification of satisfactory osseous apposition and stability to the arthrodesis sites. Accumulated dose was 0.530 mGy. Implants: 1. 4.0 partially threaded cannulated synthes screw 2. 0.045 kwire x 3 Specimens: none sent Disposition: PACU
== END 2025-02-21 14:15 | disposition home or self-care (01) ==
LOC: OR 08:54
PROVIDERS: PCP Family Medicine; Visit Provider Podiatrist
PROC: (CPT 28292; principal; 2025-02-21 10:15)
DX: M20.31 Hallux varus (acquired), right foot (principal); M20.41 Other hammer toe(s) (acquired), right foot; M24.574 Contracture, right foot; E11.29 Type 2 diabetes mellitus with other diabetic kidney complication; R80.9 Proteinuria, unspecified; I10 Essential (primary) hypertension; I25.810 Atherosclerosis of coronary artery bypass graft(s) without angina pectoris; E11.42 Type 2 diabetes mellitus with diabetic polyneuropathy
CPT/HCPCS: 38220; 28755; 28285 ×4; 28010 ×4; 01480; 73620; 76000; 82962; 97116; 97161; 97530; C1713; J0665; J0690; J2371; J2405; J2704; J3010; J7120

== ENCOUNTER 2025-04-24 07:48 | Outpatient (CLI) | payer MEDICARE, BC, SELFPAY | END 2025-04-24 07:49 | disposition home or self-care (01) | LOC: NFLDREF 04-27 17:46 | PROVIDERS: PCP Family Medicine; Referring Provider Family Medicine; Visit Provider Family Medicine | DX: I10 Essential (primary) hypertension (principal); E78.5 Hyperlipidemia, unspecified; E11.29 Type 2 diabetes mellitus with other diabetic kidney complication; D64.9 Anemia, unspecified; R80.9 Proteinuria, unspecified | CPT/HCPCS: 80053; 80061; 84443 ==

== ENCOUNTER 2025-07-13 07:33 | Outpatient (CLI) | payer MEDICARE, BC, SELFPAY | END 2025-07-13 07:34 | disposition home or self-care (01) | LOC: NFLDREF 07-18 04:55 | PROVIDERS: PCP Family Medicine; Referring Provider Family Medicine; Visit Provider Family Medicine | DX: E78.5 Hyperlipidemia, unspecified (principal); E11.29 Type 2 diabetes mellitus with other diabetic kidney complication; R80.9 Proteinuria, unspecified; I10 Essential (primary) hypertension; Z12.5 Encounter for screening for malignant neoplasm of prostate | CPT/HCPCS: 80053; 80061; 82043; 82570; G0103 ==